=== PATIENT | male | born 1960 | race Caucasian/White ===

== ENCOUNTER 2018-07-03 08:41 | Inpatient (IN) | payer MEDICAID, OTHER ==
[~2018-07-03] VITALS: Ht 170.2 cm; Wt 69.6 kg
[2018-07-03 09:27] LABS: BASOPHILS % 1.2 % (0.0-2.0); EOSINOPHILS % 0.4 % (0.0-5.0); HEMATOCRIT. 27.7 % (42.0-52.0); HEMOGLOBIN. 9.1 g/dL (14.0-18.0); LYMPHOCYTES % 7.9 % (20.0-50.0); MEAN CORPUSCULAR HEMOGLOBIN 28.8 pg (28.0-32.0); MEAN CORPUSCULAR VOLUME 87.5 fL (80.0-94.0); MEAN PLATELET VOLUME 7.7 fl (7.4-10.4); MONOCYTES % 6.6 % (2.0-8.0); NEUTROPHILS % 83.9 % (40.0-76.0); PLATELET 215 x1000/uL (130-400); RED BLOOD CELL COUNT 3.17 mill/uL (4.7-6.1); RED CELL DISTRIBUTION WIDTH 17.7 % (11.6-14.6)
[2018-07-03] MEDS ORDERED: MORPHINE SULFATE 10 MG/ML CPJ IV ONE (09:30)
[2018-07-03] MEDS ORDERED: MORPHINE SULFATE 4 MG/ML CPJ (NOT FOR IM USE) IV ONE (09:30)
[2018-07-03] MEDS ORDERED: ONDANSETRON HCL 4MG/2ML INJ IV ONE ×2 (09:30→12:30)
[2018-07-03 09:33] LABS: CHLORIDE 100 mEq/L (98-107)
[2018-07-03] MEDS ORDERED: ASPIRIN 325MG EC TABLET PO ONE (09:45)
[2018-07-03] MEDS ORDERED: DEXTROSE 50% WATER 50ML SYRINGE IV ONE (10:15)
[2018-07-03] MEDS ORDERED: ONDANSETRON HCL 4MG/2ML INJ IV PRN ×3 (10:15→17:30)
[2018-07-03] MEDS ORDERED: INSULIN REGULAR (HUMULIN R) 300UNITS/3ML IV ONE (10:15)
[2018-07-03] MEDS ORDERED: ALBUTEROL (0.083%) 2.5MG/3ML NEB HHN ONE (10:15)
[2018-07-03] MEDS ORDERED: SODIUM BICARBONATE 8.4% 1 MEQ/ML 50ML SYR IV ONE (10:15)
[2018-07-03] MEDS ORDERED: ACETAMINOPHEN 325MG TABLET PO PRN ×3 (10:15→17:30)
[2018-07-03 12:21] LABS: HEPATITIS B SURFACE ANTIGEN NEGATIVE
[2018-07-03 12:51] LABS: HEPATITIS A AB IGM NEGATIVE (NEGATIVE)
[2018-07-03] MEDS ORDERED: SEVELAMER CARBONATE 800 MG TABLET PO SCH (13:00)
[2018-07-03] MEDS ORDERED: NITROGLYCERIN OINT 1GM/INCH UDPKT TD SCH (14:00)
[2018-07-03] MEDS ORDERED: IODIXANOL 320MG/ML 100 ML BOTTLE IV ONE (15:07)
[2018-07-03] MEDS ORDERED: LIDOCAINE HCL 1% 20ML VIAL (Pyxis) INJ ONE (15:07)
[2018-07-03] MEDS ORDERED: MIDAZOLAM HCL 2 MG/2 ML VIAL ONE (15:58)
[2018-07-03] MEDS ORDERED: FENTANYL CITRATE/PF 50MCG/ML 2ML VIAL ONE (15:58)
[2018-07-03] MEDS ORDERED: HEPARIN SODIUM 1,000 UNIT/1ML VIAL IV ONE (16:12)
[2018-07-03] MEDS ORDERED: IOHEXOL-300 100 ML BOTTLE ONE ×2 (16:32→16:50)
[2018-07-03] MEDS ORDERED: ATROPINE SULFATE 1MG/10ML SYR IV PRN ×2 (17:00→17:30)
[2018-07-03] MEDS ORDERED: METOPROLOL TARTRATE 25MG TABLET PO SCH (17:00)
[2018-07-03] MEDS ORDERED: CLOPIDOGREL 75MG TABLET ONE (17:12)
[2018-07-03] MEDS ORDERED: ASPIRIN 325MG TABLET ONE (17:33)
[2018-07-03] MEDS: METOPROLOL TARTRATE 25MG TABLET PO SCH (18:09)
[2018-07-03] MEDS: NITROGLYCERIN OINT 1GM/INCH UDPKT TD SCH (18:10)
[2018-07-03] MEDS: SEVELAMER CARBONATE 800 MG TABLET PO SCH (18:10)
[2018-07-03 20:00] VITALS: BP 130/74
[2018-07-03] MEDS ORDERED: EPOETIN ALFA 10000UNITS/ML VIAL SUBCUT SCH (21:00)
[2018-07-03 22:00] VITALS: BP 139/82
[2018-07-03] MEDS: EPOETIN ALFA 10000UNITS/ML VIAL SUBCUT SCH (22:38)
[2018-07-04] VITALS (12 sets, daily range): BP systolic 109–144; BP diastolic 52–79
[2018-07-04] MEDS: NITROGLYCERIN OINT 1GM/INCH UDPKT TD SCH (02:23)
[2018-07-04] MEDS: MORPHINE SULFATE 10 MG/ML CPJ IV PRN (02:25)
[2018-07-04] MEDS ORDERED: POLY15DR56 OP (04:12)
[2018-07-04] MEDS ORDERED: IBUP-2271 PO (04:12)
[2018-07-04] MEDS ORDERED: DORZ10DR12 OP (04:12)
[2018-07-04] MEDS ORDERED: BRIM5DRO6 OP (04:12)
[2018-07-04] MEDS ORDERED: LATA2.5D2 OP (04:12)
[2018-07-04 06:41] LABS: BASOPHILS % 0.7 % (0.0-2.0); EOSINOPHILS % 0.4 % (0.0-5.0); HEMATOCRIT. 25.2 % (42.0-52.0); HEMOGLOBIN. 8.4 g/dL (14.0-18.0); LYMPHOCYTES % 12.3 % (20.0-50.0); MEAN CORPUSCULAR HEMOGLOBIN 29.1 pg (28.0-32.0); MEAN CORPUSCULAR VOLUME 87.8 fL (80.0-94.0); MEAN PLATELET VOLUME 7.8 fl (7.4-10.4); NEUTROPHILS % 79.6 % (40.0-76.0); PLATELET 202 x1000/uL (130-400); RED BLOOD CELL COUNT 2.87 mill/uL (4.7-6.1); RED CELL DISTRIBUTION WIDTH 17.8 % (11.6-14.6)
[2018-07-04] MEDS: SEVELAMER CARBONATE 800 MG TABLET PO SCH ×3 (07:20→17:59)
[2018-07-04] MEDS ORDERED: DEXTROSE 50% WATER 50ML SYRINGE IV PRN (08:30)
[2018-07-04] MEDS: METOPROLOL TARTRATE 25MG TABLET PO SCH ×2 (09:00→20:56)
[2018-07-04] MEDS ORDERED: ASPIRIN 81MG EC TABLET PO SCH (09:00)
[2018-07-04] MEDS ORDERED: CLOPIDOGREL 75MG TABLET PO SCH (09:00)
[2018-07-04] MEDS: ALPRAZOLAM 0.5 MG TABLET PO PRN (09:19)
[2018-07-04] MEDS ORDERED: NITROGLYCERIN OINT 1GM/INCH UDPKT TD PRN (10:15)
[2018-07-04] MEDS: BLOOD SUGAR DIAGNOSTIC STRIP TEST SCH ×3 (11:48→20:44)
[2018-07-04] MEDS: ASPIRIN 81MG EC TABLET PO SCH (11:49)
[2018-07-04] MEDS: CLOPIDOGREL 75MG TABLET PO SCH (11:49)
[2018-07-04] MEDS: INSULIN LISPRO 100 UNITS/ML SUBCUT SCH ×3 (13:07→20:44)
[2018-07-04] MEDS: ACETAMINOPHEN 325MG TABLET PO PRN (23:00)
[2018-07-05] VITALS (16 sets, daily range): BP systolic 88–170; BP diastolic 31–153
[2018-07-05] MEDS: BLOOD SUGAR DIAGNOSTIC STRIP TEST SCH ×4 (06:36→21:09)
[2018-07-05 06:46] LABS: BASOPHILS % 0.6 % (0.0-2.0); EOSINOPHILS % 3.4 % (0.0-5.0); HEMATOCRIT. 24.4 % (42.0-52.0); HEMOGLOBIN. 8.1 g/dL (14.0-18.0); LYMPHOCYTES % 22.7 % (20.0-50.0); MEAN CORPUSCULAR HEMOGLOBIN 28.9 pg (28.0-32.0); MEAN CORPUSCULAR VOLUME 87.2 fL (80.0-94.0); MEAN PLATELET VOLUME 7.8 fl (7.4-10.4); MONOCYTES % 9.7 % (2.0-8.0); NEUTROPHILS % 63.6 % (40.0-76.0); PLATELET 213 x1000/uL (130-400); RED CELL DISTRIBUTION WIDTH 17.9 % (11.6-14.6)
[2018-07-05 07:05] LABS: PHOSPHORUS 4.7 mg/dL (2.5-4.9)
[2018-07-05] MEDS: SEVELAMER CARBONATE 800 MG TABLET PO SCH ×3 (07:41→18:18)
[2018-07-05] MEDS: INSULIN LISPRO 100 UNITS/ML SUBCUT SCH ×4 (07:42→21:08)
[2018-07-05] MEDS: MORPHINE SULFATE 10 MG/ML CPJ IV PRN ×2 (08:44→21:07)
[2018-07-05] MEDS: ASPIRIN 81MG EC TABLET PO SCH (08:45)
[2018-07-05] MEDS: METOPROLOL TARTRATE 25MG TABLET PO SCH (08:45)
[2018-07-05] MEDS: CLOPIDOGREL 75MG TABLET PO SCH (08:45)
[2018-07-05] MEDS ORDERED: LACTULOSE 20G/30ML UDC PO PRN (11:00)
[2018-07-05] MEDS ORDERED: BISACODYL 10MG SUPP PR PRN (11:00)
[2018-07-05] MEDS: DOCUSATE SODIUM 250MG CAPSULE PO SCH (12:28)
[2018-07-05 13:02] LABS: CLARITY URINE TURBID (CLEAR); COLOR URINE RED (YELLOW); KETONES URINE NEGATIVE (NEGATIVE); LEUKOCYTE ESTERASE URINE 3+ (NEGATIVE); NITRITE URINE NEGATIVE (NEGATIVE); OCCULT BLOOD URINE 3+ (NEGATIVE); PROTEIN URINE 3+ (NEGATIVE); SPECIFIC GRAVITY URINE 1.015 (1.005-1.030); UROBILINOGEN URINE 0.2 E.U./dL (0.2-1.0)
[2018-07-05 13:24] LABS: *AMPHETAMINES SCREEN URINE NEGATIVE (NEGATIVE); *BARBITURATES SCREEN URINE NEGATIVE (NEGATIVE); *BENZODIAZEPINES SCREEN URINE PRESUMTIVE POSITIVE (NEGATIVE); *COCAINE SCREEN URINE NEGATIVE (NEGATIVE); CANNABINOID URINE SCREEN NEGATIVE (NEGATIVE); METHADONE URINE SCREEN NEGATIVE (NEGATIVE); OPIATES URINE SCREEN PRESUMTIVE POSITIVE (NEGATIVE); PHENCYCLIDINE URINE SCREEN NEGATIVE (NEGATIVE)
[2018-07-05] MEDS: ALPRAZOLAM 0.5 MG TABLET PO PRN (15:38)
[2018-07-05] MEDS: LACTULOSE 20G/30ML UDC PO PRN (21:06)
[2018-07-05] MEDS: CARVEDILOL 3.125 MG TABLET PO SCH (21:07)
[2018-07-05] MEDS ORDERED: ZOLPIDEM TARTRATE 5MG TABLET PO PRN (21:45)
[2018-07-05] MEDS: EPOETIN ALFA 10000UNITS/ML VIAL SUBCUT SCH (22:14)
[2018-07-06] VITALS (12 sets, daily range): BP systolic 120–163; BP diastolic 29–80
[2018-07-06 07:15] LABS: BASOPHILS % 0.7 % (0.0-2.0); EOSINOPHILS % 4.3 % (0.0-5.0); HEMATOCRIT. 28.7 % (42.0-52.0); HEMOGLOBIN. 9.6 g/dL (14.0-18.0); LYMPHOCYTES % 19.7 % (20.0-50.0); MEAN PLATELET VOLUME 7.6 fl (7.4-10.4); MONOCYTES % 10.4 % (2.0-8.0); NEUTROPHILS % 64.9 % (40.0-76.0); PLATELET 211 x1000/uL (130-400)
[2018-07-06 07:43] LABS: PHOSPHORUS 4.4 mg/dL (2.5-4.9)
[2018-07-06] MEDS: INSULIN LISPRO 100 UNITS/ML SUBCUT SCH ×4 (08:06→20:45)
[2018-07-06] MEDS: ASPIRIN 81MG EC TABLET PO SCH (08:07)
[2018-07-06] MEDS: DOCUSATE SODIUM 250MG CAPSULE PO SCH (08:07)
[2018-07-06] MEDS: SEVELAMER CARBONATE 800 MG TABLET PO SCH ×3 (08:07→17:16)
[2018-07-06] MEDS: CARVEDILOL 3.125 MG TABLET PO SCH ×2 (08:07→20:26)
[2018-07-06] MEDS: CLOPIDOGREL 75MG TABLET PO SCH (08:07)
[2018-07-06] MEDS ORDERED: MORPHINE SULFATE 4 MG/ML CPJ (NOT FOR IM USE) IV PRN (11:45)
[2018-07-06] MEDS: BLOOD SUGAR DIAGNOSTIC STRIP TEST SCH ×3 (11:52→21:00)
[2018-07-06] MEDS: ACETAMINOPHEN 325MG TABLET PO PRN (17:16)
[2018-07-06] MEDS ORDERED: BISACODYL 10MG SUPP PR PRN (19:30)
[2018-07-06] MEDS ORDERED: BISACODYL 5MG TABLET PO PRN (19:30)
[2018-07-06] MEDS ORDERED: LEVOFLOXACIN 250MG TABLET PO SCH (20:00)
[2018-07-06] MEDS: LACTULOSE 20G/30ML UDC PO PRN (20:26)
[2018-07-07] VITALS (12 sets, daily range): BP systolic 112–145; BP diastolic 43–78
[2018-07-07 07:10] LABS: BASOPHILS % 0.8 % (0.0-2.0); EOSINOPHILS % 4.8 % (0.0-5.0); HEMATOCRIT. 28.3 % (42.0-52.0); HEMOGLOBIN. 9.4 g/dL (14.0-18.0); LYMPHOCYTES % 22.7 % (20.0-50.0); MEAN CORPUSCULAR HEMOGLOBIN 29.2 pg (28.0-32.0); MEAN CORPUSCULAR VOLUME 87.4 fL (80.0-94.0); MEAN PLATELET VOLUME 7.3 fl (7.4-10.4); NEUTROPHILS % 60.7 % (40.0-76.0); PLATELET 218 x1000/uL (130-400); RED BLOOD CELL COUNT 3.23 mill/uL (4.7-6.1); RED CELL DISTRIBUTION WIDTH 17.8 % (11.6-14.6)
[2018-07-07] MEDS: BLOOD SUGAR DIAGNOSTIC STRIP TEST SCH ×3 (07:49→16:47)
[2018-07-07] MEDS: ASPIRIN 81MG EC TABLET PO SCH (08:05)
[2018-07-07] MEDS: DOCUSATE SODIUM 250MG CAPSULE PO SCH (08:05)
[2018-07-07] MEDS: CLOPIDOGREL 75MG TABLET PO SCH (08:05)
[2018-07-07] MEDS: CARVEDILOL 3.125 MG TABLET PO SCH (08:05)
[2018-07-07] MEDS: INSULIN LISPRO 100 UNITS/ML SUBCUT SCH ×3 (08:06→16:58)
[2018-07-07] MEDS: MORPHINE SULFATE 10 MG/ML CPJ IV PRN (08:07)
[2018-07-07] MEDS: SEVELAMER CARBONATE 800 MG TABLET PO SCH ×3 (08:11→16:47)
[2018-07-07] MEDS ORDERED: CEFTRIAXONE 1 G PREMIX 50 ML IV SCH (13:00)
[2018-07-07] MEDS ORDERED: COR3 PO (13:55)
[2018-07-07] MEDS ORDERED: CLOP75TA16 PO (13:55)
[2018-07-07] MEDS ORDERED: SEVE800T8 PO (13:55)
[2018-07-07] MEDS ORDERED: ASPI-1158 PO (13:55)
== END 2018-07-07 18:16 | disposition home or self-care (01) | DRG 175 ==
LOC: EDBD 08:55 → ER 08:55 → 3WST 11:58 → EDBEDREQTM 12:00 → EDBEDREQ 12:00 → ER 15:51 → 3WST 07-05 10:58
PROVIDERS: ADMIT Internal Medicine; ATTEND Family Medicine
PROC: 02713ZZ Dilation of Coronary Artery, Two Arteries, Percutaneous Approach (ICD-10-PCS; 2017-07-04)
PROC: 027034Z Dilation of Coronary Artery, One Artery with Drug-eluting Intraluminal Device, Percutaneous Approach (ICD-10-PCS; principal; 2018-07-03)
PROC: 4A023N7 Measurement of Cardiac Sampling and Pressure, Left Heart, Percutaneous Approach (ICD-10-PCS; 2018-07-03)
PROC: B2111ZZ Fluoroscopy of Multiple Coronary Arteries using Low Osmolar Contrast (ICD-10-PCS; 2018-07-03)
PROC: 5A1D70Z Performance of Urinary Filtration, Intermittent, Less than 6 Hours Per Day (ICD-10-PCS; 2018-07-03)
PROC: 5A1D70Z Performance of Urinary Filtration, Intermittent, Less than 6 Hours Per Day (ICD-10-PCS; 2018-07-04)
PROC: 30233N1 Transfusion of Nonautologous Red Blood Cells into Peripheral Vein, Percutaneous Approach (ICD-10-PCS; 2018-07-05)
PROC: 5A1D70Z Performance of Urinary Filtration, Intermittent, Less than 6 Hours Per Day (ICD-10-PCS; 2018-07-07)
DX: T82.855A Stenosis of coronary artery stent, initial encounter (principal); I21.4 Non-ST elevation (NSTEMI) myocardial infarction; I13.2 Hypertensive heart and chronic kidney disease with heart failure and with stage 5 chronic kidney disease, or end stage renal disease; E11.22 Type 2 diabetes mellitus with diabetic chronic kidney disease; E11.51 Type 2 diabetes mellitus with diabetic peripheral angiopathy without gangrene; E87.1 Hypo-osmolality and hyponatremia; N18.6 End stage renal disease; I50.40 Unspecified combined systolic (congestive) and diastolic (congestive) heart failure; I25.110 Atherosclerotic heart disease of native coronary artery with unstable angina pectoris; D63.1 Anemia in chronic kidney disease; E78.5 Hyperlipidemia, unspecified; E87.5 Hyperkalemia; E78.00 Pure hypercholesterolemia, unspecified; K59.00 Constipation, unspecified; B96.20 Unspecified Escherichia coli [E. coli] as the cause of diseases classified elsewhere; I25.5 Ischemic cardiomyopathy; J98.11 Atelectasis; N39.0 Urinary tract infection, site not specified; Y83.1 Surgical operation with implant of artificial internal device as the cause of abnormal reaction of the patient, or of later complication, without mention of misadventure at the time of the procedure; Z82.49 Family history of ischemic heart disease and other diseases of the circulatory system; Z99.2 Dependence on renal dialysis; Z83.3 Family history of diabetes mellitus; Z90.49 Acquired absence of other specified parts of digestive tract; Z89.432 Acquired absence of left foot; Z89.431 Acquired absence of right foot
CPT/HCPCS: 36415; 71045; 74018; 76700; 80048; 80061; 80076; 80305; 82140; 82962; 83036; 83735; 83880; 84100; 84132; 84443; 84484; 85347; 86705; 86709; 86803; 86850; 86900; 86920; 87077; 87186; 87340; 92920; 92928; 92978; 93005; 93306; 93458; 93970; 96374; 96375; 97163; 99285; C1725; C1753; C1760; C1769; C1874; C1887; C1893; J0696; J0885; J1644; J1815; J2250; J2270; J2405; J3010; J3490; P9016; Q9967

== ENCOUNTER 2018-08-22 10:12 | Inpatient (IN) | payer MEDICAID, OTHER ==
[~2018-08-22] VITALS: Ht 170.2 cm; Wt 58.5 kg
[~2018-08-22 10:12] MED LIST: ASPI-1158 PO; BRIM5DRO6 OP; CLOP75TA16 PO; COR3 PO; DORZ10DR12 OP; IBUP-2271 PO; LATA2.5D2 OP; POLY15DR56 OP; SEVE800T8 PO; SODIUM POLYSTYRENE SULFONATE 15 G/60 ML BOT PO NR
[2018-08-22 19:04] LABS: BASOPHILS % 0.8 % (0.0-2.0); EOSINOPHILS % 3.6 % (0.0-5.0); HEMATOCRIT. 42.9 % (42.0-52.0); LYMPHOCYTES % 32.9 % (20.0-50.0); MEAN CORPUSCULAR HEMOGLOBIN 29.6 pg (28.0-32.0); MEAN PLATELET VOLUME 8.1 fl (7.4-10.4); MONOCYTES % 10.7 % (2.0-8.0); PLATELET 197 x1000/uL (130-400); RED BLOOD CELL COUNT 4.72 mill/uL (4.7-6.1); RED CELL DISTRIBUTION WIDTH 16.3 % (11.6-14.6)
[2018-08-22 19:10] LABS: CHLORIDE 99 mEq/L (98-107)
[2018-08-22 20:54] LABS: CLARITY URINE TURBID (CLEAR); COLOR URINE YELLOW (YELLOW); KETONES URINE NEGATIVE (NEGATIVE); LEUKOCYTE ESTERASE URINE 3+ (NEGATIVE); NITRITE URINE NEGATIVE (NEGATIVE); OCCULT BLOOD URINE 1+ (NEGATIVE); PH URINE 5.5 (4.5-8.0); PROTEIN URINE 3+ (NEGATIVE); SPECIFIC GRAVITY URINE 1.013 (1.005-1.030); UROBILINOGEN URINE 0.2 E.U./dL (0.2-1.0)
[2018-08-22] MEDS ORDERED: CEFTRIAXONE 1 G PREMIX 50 ML IV ONE (21:30)
[2018-08-22] MEDS ORDERED: HYDROMORPHONE HCL/PF 2MG/ML CPJ IV NR (23:30)
[2018-08-22] MEDS ORDERED: CEFTRIAXONE 1 G PREMIX 50 ML IV SCH (23:45)
[2018-08-22] MEDS ORDERED: GUAIFENESIN 200MG/10ML SUGAR FREE UDC PO PRN (23:45)
[2018-08-23 00:27] VITALS: BP 147/75
[2018-08-23 04:00] VITALS: BP 121/59
[2018-08-23] MEDS: SODIUM CHLORIDE 0.9% INJ 3ML FLUSH IVF SCH ×3 (05:00→20:41)
[2018-08-23 08:00] VITALS: BP 152/75
[2018-08-23] MEDS ORDERED: PNEUMOCOCCAL 23-VAL P-SAC VAC 0.5 ML IM ONE (08:00)
[2018-08-23] MEDS ORDERED: DEXTROSE 50% WATER 50ML SYRINGE IV PRN (08:15)
[2018-08-23] MEDS ORDERED: SODIUM BICARBONATE 8.4% 1 MEQ/ML 50ML SYR IV SCH (08:30)
[2018-08-23] MEDS ORDERED: DEXTROSE 50% WATER 50ML SYRINGE IV SCH (08:30)
[2018-08-23] MEDS ORDERED: FUROSEMIDE 100MG/10ML VIAL IVP SCH (08:40)
[2018-08-23 09:46] LABS: BASOPHILS % 1.2 % (0.0-2.0); EOSINOPHILS % 4.1 % (0.0-5.0); HEMATOCRIT. 41.1 % (42.0-52.0); HEMOGLOBIN. 13.5 g/dL (14.0-18.0); LYMPHOCYTES % 25.5 % (20.0-50.0); MEAN CORPUSCULAR HEMOGLOBIN 29.9 pg (28.0-32.0); MEAN CORPUSCULAR VOLUME 91.1 fL (80.0-94.0); MEAN PLATELET VOLUME 8.1 fl (7.4-10.4); MONOCYTES % 10.7 % (2.0-8.0); NEUTROPHILS % 58.5 % (40.0-76.0); PLATELET 173 x1000/uL (130-400); RED BLOOD CELL COUNT 4.52 mill/uL (4.7-6.1); RED CELL DISTRIBUTION WIDTH 15.8 % (11.6-14.6)
[2018-08-23] MEDS: ENOXAPARIN 30MG/0.3ML SYR SUBCUT SCH (09:54)
[2018-08-23] MEDS: FAMOTIDINE 20MG/2ML VIAL IV SCH (09:55)
[2018-08-23] MEDS: LOSARTAN POTASSIUM 25 MG TABLET PO SCH (09:55)
[2018-08-23] MEDS: CLOPIDOGREL 75MG TABLET PO SCH (09:55)
[2018-08-23] MEDS: ASPIRIN 81MG EC TABLET PO SCH (09:55)
[2018-08-23] MEDS: METOPROLOL TARTRATE 25MG TABLET PO SCH ×2 (09:56→20:43)
[2018-08-23] MEDS: CARVEDILOL 3.125 MG TABLET PO SCH ×2 (09:57→20:42)
[2018-08-23] MEDS ORDERED: INFLUENZA VIRUS VACCINE(AFLURIA) 0.5ML SYR IM ONE (10:00)
[2018-08-23] MEDS ORDERED: SODIUM POLYSTYRENE SULFONATE 15 G/60 ML BOT PO SCH (10:00)
[2018-08-23 12:00] VITALS: BP 149/78
[2018-08-23] MEDS: BLOOD SUGAR DIAGNOSTIC STRIP TEST SCH ×2 (12:56→21:00)
[2018-08-23] MEDS: INSULIN LISPRO 100 UNITS/ML SUBCUT SCH ×2 (13:09→21:00)
[2018-08-23] MEDS: ONDANSETRON HCL 4MG/2ML INJ IV PRN (14:47)
[2018-08-23 16:00] VITALS: BP 121/61
[2018-08-23 20:00] VITALS: BP 166/71
[2018-08-23] MEDS: CEFTRIAXONE 1,000 MG in DEXTROSE 5% WATER 50 ML IV SCH (20:40)
[2018-08-23] MEDS: ATORVASTATIN CALCIUM 10MG TABLET PO SCH (20:41)
[2018-08-23] MEDS ORDERED: CEFTRIAXONE 1 G PREMIX 50 ML IV SCH (22:00)
[2018-08-24] VITALS: BP 125/71
[2018-08-24 04:00] VITALS: BP 144/67
[2018-08-24 05:46] LABS: BASOPHILS % 0.8 % (0.0-2.0); EOSINOPHILS % 2.5 % (0.0-5.0); HEMATOCRIT. 39.3 % (42.0-52.0); HEMOGLOBIN. 12.7 g/dL (14.0-18.0); LYMPHOCYTES % 25.5 % (20.0-50.0); MEAN CORPUSCULAR HEMOGLOBIN 29.1 pg (28.0-32.0); MEAN CORPUSCULAR VOLUME 89.6 fL (80.0-94.0); MEAN PLATELET VOLUME 8.1 fl (7.4-10.4); MONOCYTES % 11.3 % (2.0-8.0); NEUTROPHILS % 59.9 % (40.0-76.0); PLATELET 175 x1000/uL (130-400); RED BLOOD CELL COUNT 4.38 mill/uL (4.7-6.1); RED CELL DISTRIBUTION WIDTH 15.8 % (11.6-14.6)
[2018-08-24 06:07] LABS: PHOSPHORUS 6.5 mg/dL (2.5-4.9)
[2018-08-24] MEDS: SODIUM CHLORIDE 0.9% INJ 3ML FLUSH IVF SCH ×3 (06:11→22:51)
[2018-08-24] MEDS: INSULIN LISPRO 100 UNITS/ML SUBCUT SCH ×4 (07:38→21:13)
[2018-08-24] MEDS: BLOOD SUGAR DIAGNOSTIC STRIP TEST SCH ×4 (07:38→21:13)
[2018-08-24 08:00] VITALS: BP 156/69
[2018-08-24] MEDS: ENOXAPARIN 30MG/0.3ML SYR SUBCUT SCH (08:26)
[2018-08-24] MEDS: FAMOTIDINE 20MG/2ML VIAL IV SCH (08:27)
[2018-08-24] MEDS: ASPIRIN 81MG EC TABLET PO SCH (08:28)
[2018-08-24] MEDS: METOPROLOL TARTRATE 25MG TABLET PO SCH ×2 (08:28→21:12)
[2018-08-24] MEDS: CARVEDILOL 3.125 MG TABLET PO SCH (08:28)
[2018-08-24] MEDS: LOSARTAN POTASSIUM 25 MG TABLET PO SCH (08:28)
[2018-08-24] MEDS: CLOPIDOGREL 75MG TABLET PO SCH (08:28)
[2018-08-24] MEDS: CLONIDINE 0.1MG TABLET PO PRN ×2 (11:34→17:57)
[2018-08-24] MEDS: HYDROMORPHONE HCL/PF 2MG/ML CPJ IV PRN (11:43)
[2018-08-24 12:00] VITALS: BP 162/72
[2018-08-24] MEDS: ONDANSETRON HCL 4MG/2ML INJ IV PRN ×2 (13:29→17:57)
[2018-08-24] MEDS: CALCIUM ACETATE 667MG CAPSULE PO SCH ×2 (14:02→17:50)
[2018-08-24 16:00] VITALS: BP 163/73
[2018-08-24 20:00] VITALS: BP 145/64
[2018-08-24] MEDS: ATORVASTATIN CALCIUM 10MG TABLET PO SCH (21:12)
[2018-08-24] MEDS: CEFTRIAXONE 1,000 MG in DEXTROSE 5% WATER 50 ML IV SCH (22:50)
[2018-08-25] VITALS: BP 123/50
[2018-08-25 04:00] VITALS: BP 161/77
[2018-08-25] MEDS: HYDROMORPHONE HCL/PF 2MG/ML CPJ IV PRN (05:35)
[2018-08-25] MEDS: SODIUM CHLORIDE 0.9% INJ 3ML FLUSH IVF SCH ×3 (06:19→21:27)
[2018-08-25 07:24] LABS: BASOPHILS % 0.9 % (0.0-2.0); EOSINOPHILS % 2.8 % (0.0-5.0); HEMATOCRIT. 37.8 % (42.0-52.0); HEMOGLOBIN. 12.2 g/dL (14.0-18.0); LYMPHOCYTES % 23.3 % (20.0-50.0); MEAN CORPUSCULAR HEMOGLOBIN 29.1 pg (28.0-32.0); MEAN CORPUSCULAR VOLUME 90.1 fL (80.0-94.0); MEAN PLATELET VOLUME 8.3 fl (7.4-10.4); MONOCYTES % 13.3 % (2.0-8.0); NEUTROPHILS % 59.7 % (40.0-76.0); PLATELET 163 x1000/uL (130-400); RED CELL DISTRIBUTION WIDTH 15.6 % (11.6-14.6)
[2018-08-25] MEDS: BLOOD SUGAR DIAGNOSTIC STRIP TEST SCH ×4 (07:40→21:13)
[2018-08-25] MEDS: ONDANSETRON HCL 4MG/2ML INJ IV PRN ×2 (07:47→14:43)
[2018-08-25 08:00] VITALS: BP 134/71
[2018-08-25 08:16] LABS: PHOSPHORUS 7.9 mg/dL (2.5-4.9)
[2018-08-25] MEDS: FAMOTIDINE 20MG/2ML VIAL IV SCH (09:12)
[2018-08-25] MEDS: INSULIN LISPRO 100 UNITS/ML SUBCUT SCH ×4 (09:12→21:26)
[2018-08-25] MEDS: ENOXAPARIN 30MG/0.3ML SYR SUBCUT SCH (09:13)
[2018-08-25] MEDS: CALCIUM ACETATE 667MG CAPSULE PO SCH ×3 (09:13→18:42)
[2018-08-25] MEDS: METOPROLOL TARTRATE 25MG TABLET PO SCH ×2 (09:14→21:13)
[2018-08-25] MEDS: ASPIRIN 81MG EC TABLET PO SCH (09:14)
[2018-08-25] MEDS: CLOPIDOGREL 75MG TABLET PO SCH (09:14)
[2018-08-25] MEDS: LOSARTAN POTASSIUM 25 MG TABLET PO SCH (09:26)
[2018-08-25 12:00] VITALS: BP 147/68
[2018-08-25] MEDS: ACETAMINOPHEN 325MG TABLET PO PRN (14:33)
[2018-08-25 16:00] VITALS: BP 145/66
[2018-08-25 20:28] VITALS: BP 131/62
[2018-08-25] MEDS: ATORVASTATIN CALCIUM 10MG TABLET PO SCH (21:13)
[2018-08-25] MEDS: CEFTRIAXONE 1,000 MG in DEXTROSE 5% WATER 50 ML IV SCH (21:26)
[2018-08-26] VITALS: BP 138/61
[2018-08-26] MEDS: HYDROMORPHONE HCL/PF 2MG/ML CPJ IV PRN (01:07)
[2018-08-26] MEDS: ONDANSETRON HCL 4MG/2ML INJ IV PRN ×2 (01:12→09:49)
[2018-08-26] MEDS: LORAZEPAM 0.5MG TABLET PO PRN ×2 (01:41→23:17)
[2018-08-26 04:00] VITALS: BP_SYST 120; BP_SYST 99; BP_DIAS 58
[2018-08-26] MEDS: INSULIN LISPRO 100 UNITS/ML SUBCUT SCH ×4 (05:34→21:00)
[2018-08-26] MEDS: BLOOD SUGAR DIAGNOSTIC STRIP TEST SCH ×4 (05:34→21:00)
[2018-08-26 05:50] LABS: BASOPHILS % 0.4 % (0.0-2.0); EOSINOPHILS % 1.2 % (0.0-5.0); HEMATOCRIT. 43.8 % (42.0-52.0); HEMOGLOBIN. 14.1 g/dL (14.0-18.0); LYMPHOCYTES % 21.7 % (20.0-50.0); MEAN CORPUSCULAR HEMOGLOBIN 29.4 pg (28.0-32.0); MEAN CORPUSCULAR VOLUME 91.3 fL (80.0-94.0); MEAN PLATELET VOLUME 8.2 fl (7.4-10.4); MONOCYTES % 7.7 % (2.0-8.0); PLATELET 187 x1000/uL (130-400); RED CELL DISTRIBUTION WIDTH 16.1 % (11.6-14.6)
[2018-08-26 06:53] LABS: PHOSPHORUS 8.1 mg/dL (2.5-4.9)
[2018-08-26 08:00] VITALS: BP_SYST 156; BP_SYST 175; BP_DIAS 73; BP_DIAS 78
[2018-08-26] MEDS: CLOPIDOGREL 75MG TABLET PO SCH (09:05)
[2018-08-26] MEDS: CALCIUM ACETATE 667MG CAPSULE PO SCH ×3 (09:05→19:23)
[2018-08-26] MEDS: ASPIRIN 81MG EC TABLET PO SCH (09:06)
[2018-08-26] MEDS: ENOXAPARIN 30MG/0.3ML SYR SUBCUT SCH (09:06)
[2018-08-26] MEDS: LOSARTAN POTASSIUM 25 MG TABLET PO SCH (09:06)
[2018-08-26] MEDS: METOPROLOL TARTRATE 25MG TABLET PO SCH ×2 (09:06→22:06)
[2018-08-26] MEDS: FAMOTIDINE 20MG/2ML VIAL IV SCH (09:06)
[2018-08-26] MEDS: PANTOPRAZOLE SODIUM 40 MG/VIAL IV SCH (11:51)
[2018-08-26] MEDS: ACETAMINOPHEN 325MG TABLET PO PRN (11:51)
[2018-08-26 12:00] VITALS: BP 175/78
[2018-08-26] MEDS: CLONIDINE 0.1MG TABLET PO PRN (14:08)
[2018-08-26] MEDS: SODIUM CHLORIDE 0.9% INJ 3ML FLUSH IVF SCH (14:15)
[2018-08-26 16:00] VITALS: BP 143/61
[2018-08-26 16:25] LABS: HEPATITIS B SURFACE ANTIGEN NEGATIVE
[2018-08-26 16:55] LABS: HEPATITIS A AB IGM NEGATIVE (NEGATIVE)
[2018-08-26] MEDS: METOCLOPRAMIDE HCL 10MG/2ML VIAL IV SCH ×2 (19:23→23:17)
[2018-08-26 20:00] VITALS: BP 139/59
[2018-08-26] MEDS: ATORVASTATIN CALCIUM 10MG TABLET PO SCH (22:06)
[2018-08-26] MEDS: CEFTRIAXONE 1,000 MG in DEXTROSE 5% WATER 50 ML IV SCH (22:09)
[2018-08-26] MEDS: MORPHINE SULFATE 4 MG/ML CPJ (NOT FOR IM USE) IV PRN (23:41)
[2018-08-27] VITALS: BP 131/62
[2018-08-27 04:00] VITALS: BP 162/71
[2018-08-27] MEDS: METOCLOPRAMIDE HCL 10MG/2ML VIAL IV SCH ×3 (05:09→18:15)
[2018-08-27] MEDS: INSULIN LISPRO 100 UNITS/ML SUBCUT SCH ×4 (05:29→21:51)
[2018-08-27] MEDS: BLOOD SUGAR DIAGNOSTIC STRIP TEST SCH ×4 (05:29→21:56)
[2018-08-27 07:34] LABS: BASOPHILS % 0.7 % (0.0-2.0); EOSINOPHILS % 3.3 % (0.0-5.0); HEMATOCRIT. 38.3 % (42.0-52.0); HEMOGLOBIN. 12.4 g/dL (14.0-18.0); LYMPHOCYTES % 28.7 % (20.0-50.0); MEAN CORPUSCULAR HEMOGLOBIN 29.3 pg (28.0-32.0); MEAN CORPUSCULAR VOLUME 90.4 fL (80.0-94.0); MEAN PLATELET VOLUME 8.1 fl (7.4-10.4); MONOCYTES % 10.9 % (2.0-8.0); NEUTROPHILS % 56.4 % (40.0-76.0); PLATELET 155 x1000/uL (130-400); RED BLOOD CELL COUNT 4.24 mill/uL (4.7-6.1); RED CELL DISTRIBUTION WIDTH 15.3 % (11.6-14.6)
[2018-08-27 08:00] VITALS: BP 145/65
[2018-08-27] MEDS: CALCIUM ACETATE 667MG CAPSULE PO SCH ×3 (08:10→18:15)
[2018-08-27 08:19] LABS: PHOSPHORUS 5.1 mg/dL (2.5-4.9)
[2018-08-27] MEDS: ENOXAPARIN 30MG/0.3ML SYR SUBCUT SCH (09:27)
[2018-08-27] MEDS: PANTOPRAZOLE SODIUM 40 MG/VIAL IV SCH (09:27)
[2018-08-27 12:00] VITALS: BP 172/72
[2018-08-27] MEDS: LOSARTAN POTASSIUM 25 MG TABLET PO SCH (12:32)
[2018-08-27] MEDS: ASPIRIN 81MG EC TABLET PO SCH (12:32)
[2018-08-27] MEDS: METOPROLOL TARTRATE 25MG TABLET PO SCH ×2 (12:32→21:37)
[2018-08-27] MEDS: CLOPIDOGREL 75MG TABLET PO SCH (12:32)
[2018-08-27] MEDS: SODIUM CHLORIDE 0.9% INJ 3ML FLUSH IVF SCH ×3 (12:41→21:57)
[2018-08-27 16:10] VITALS: BP 152/66
[2018-08-27 20:00] VITALS: BP 112/73
[2018-08-27] MEDS: ATORVASTATIN CALCIUM 10MG TABLET PO SCH (21:37)
[2018-08-27] MEDS: CEFTRIAXONE 1,000 MG in DEXTROSE 5% WATER 50 ML IV SCH (21:57)
[2018-08-28] VITALS: BP 133/79
[2018-08-28] MEDS: METOCLOPRAMIDE HCL 10MG/2ML VIAL IV SCH ×4 (00:36→18:18)
[2018-08-28 04:00] VITALS: BP 137/57
[2018-08-28] MEDS: SODIUM CHLORIDE 0.9% INJ 3ML FLUSH IVF SCH ×3 (06:14→22:00)
[2018-08-28 07:49] LABS: PHOSPHORUS 5.8 mg/dL (2.5-4.9)
[2018-08-28 08:00] VITALS: BP 163/79
[2018-08-28] MEDS: BLOOD SUGAR DIAGNOSTIC STRIP TEST SCH ×4 (08:00→21:02)
[2018-08-28] MEDS: INSULIN LISPRO 100 UNITS/ML SUBCUT SCH ×4 (08:10→21:00)
[2018-08-28] MEDS: FAMOTIDINE 20MG TABLET PO SCH (08:40)
[2018-08-28] MEDS: CALCIUM ACETATE 667MG CAPSULE PO SCH ×3 (08:40→18:17)
[2018-08-28] MEDS: ASPIRIN 81MG EC TABLET PO SCH (08:40)
[2018-08-28] MEDS: ENOXAPARIN 30MG/0.3ML SYR SUBCUT SCH (08:41)
[2018-08-28] MEDS: CLOPIDOGREL 75MG TABLET PO SCH (08:42)
[2018-08-28] MEDS: LOSARTAN POTASSIUM 25 MG TABLET PO SCH (09:05)
[2018-08-28] MEDS: METOPROLOL TARTRATE 25MG TABLET PO SCH ×2 (09:07→21:12)
[2018-08-28 12:00] VITALS: BP 179/79
[2018-08-28] MEDS ORDERED: LORAZEPAM 0.5MG TABLET PO NR (12:15)
[2018-08-28] MEDS ORDERED: BISACODYL 10MG SUPP PR NR (12:15)
[2018-08-28] MEDS ORDERED: LORAZEPAM 0.5MG TABLET PO PRN (12:45)
[2018-08-28] MEDS ORDERED: BISACODYL 10MG SUPP PR PRN (12:45)
[2018-08-28] MEDS: LACTULOSE 20G/30ML UDC PO PRN ×2 (13:04→21:13)
[2018-08-28 13:24] LABS: BASOPHILS % 0.8 % (0.0-2.0); EOSINOPHILS % 2.1 % (0.0-5.0); HEMOGLOBIN. 12.7 g/dL (14.0-18.0); LYMPHOCYTES % 27.6 % (20.0-50.0); MEAN CORPUSCULAR HEMOGLOBIN 29.1 pg (28.0-32.0); MEAN CORPUSCULAR VOLUME 89.8 fL (80.0-94.0); MEAN PLATELET VOLUME 8.1 fl (7.4-10.4); MONOCYTES % 7.3 % (2.0-8.0); NEUTROPHILS % 62.2 % (40.0-76.0); PLATELET 156 x1000/uL (130-400); RED BLOOD CELL COUNT 4.35 mill/uL (4.7-6.1); RED CELL DISTRIBUTION WIDTH 15.6 % (11.6-14.6)
[2018-08-28 16:00] VITALS: BP 149/68
[2018-08-28] MEDS: CLONIDINE 0.1MG TABLET PO PRN (18:17)
[2018-08-28 20:00] VITALS: BP 125/67
[2018-08-28] MEDS: ATORVASTATIN CALCIUM 10MG TABLET PO SCH (21:11)
[2018-08-28] MEDS: CEFTRIAXONE 1,000 MG in DEXTROSE 5% WATER 50 ML IV SCH (22:00)
[2018-08-29] VITALS: BP 158/61
[2018-08-29] MEDS: METOCLOPRAMIDE HCL 10MG/2ML VIAL IV SCH ×4 (00:21→18:07)
[2018-08-29 04:00] VITALS: BP 158/79
[2018-08-29] MEDS: SODIUM CHLORIDE 0.9% INJ 3ML FLUSH IVF SCH ×3 (06:35→22:36)
[2018-08-29 06:50] LABS: BASOPHILS % 0.8 % (0.0-2.0); EOSINOPHILS % 3.9 % (0.0-5.0); HEMATOCRIT. 37.2 % (42.0-52.0); HEMOGLOBIN. 12.3 g/dL (14.0-18.0); LYMPHOCYTES % 27.8 % (20.0-50.0); MEAN CORPUSCULAR HEMOGLOBIN 29.6 pg (28.0-32.0); MEAN CORPUSCULAR VOLUME 89.5 fL (80.0-94.0); MEAN PLATELET VOLUME 7.9 fl (7.4-10.4); MONOCYTES % 12.4 % (2.0-8.0); NEUTROPHILS % 55.1 % (40.0-76.0); PLATELET 141 x1000/uL (130-400); RED BLOOD CELL COUNT 4.16 mill/uL (4.7-6.1); RED CELL DISTRIBUTION WIDTH 15.3 % (11.6-14.6)
[2018-08-29] MEDS: BLOOD SUGAR DIAGNOSTIC STRIP TEST SCH ×4 (07:00→21:00)
[2018-08-29 07:39] LABS: PHOSPHORUS 4.6 mg/dL (2.5-4.9)
[2018-08-29 08:00] VITALS: BP 137/72
[2018-08-29] MEDS: CALCIUM ACETATE 667MG CAPSULE PO SCH ×3 (09:08→18:07)
[2018-08-29] MEDS: ASPIRIN 81MG EC TABLET PO SCH (09:08)
[2018-08-29] MEDS: METOPROLOL TARTRATE 25MG TABLET PO SCH ×2 (09:08→21:24)
[2018-08-29] MEDS: LOSARTAN POTASSIUM 25 MG TABLET PO SCH (09:08)
[2018-08-29] MEDS: FAMOTIDINE 20MG TABLET PO SCH (09:08)
[2018-08-29] MEDS: CLOPIDOGREL 75MG TABLET PO SCH (09:08)
[2018-08-29] MEDS: ENOXAPARIN 30MG/0.3ML SYR SUBCUT SCH (09:09)
[2018-08-29] MEDS: INSULIN LISPRO 100 UNITS/ML SUBCUT SCH ×4 (09:10→22:34)
[2018-08-29 12:00] VITALS: BP 142/65
[2018-08-29 16:00] VITALS: BP 151/77
[2018-08-29] MEDS: LACTULOSE 20G/30ML UDC PO PRN (16:50)
[2018-08-29 20:00] VITALS: BP 170/79
[2018-08-29] MEDS: ATORVASTATIN CALCIUM 10MG TABLET PO SCH (21:22)
[2018-08-29] MEDS: OMEPRAZOLE 20MG CAPSULE EXTENDED RELEASE PO SCH (21:24)
[2018-08-29] MEDS: CLONIDINE 0.1MG TABLET PO PRN (21:25)
[2018-08-29] MEDS: CEFTRIAXONE 1,000 MG in DEXTROSE 5% WATER 50 ML IV SCH (22:35)
[2018-08-30] VITALS: BP 109/70
[2018-08-30] MEDS: METOCLOPRAMIDE HCL 10MG/2ML VIAL IV SCH ×3 (01:33→12:28)
[2018-08-30 04:00] VITALS: BP 146/62
[2018-08-30] MEDS: SODIUM CHLORIDE 0.9% INJ 3ML FLUSH IVF SCH ×2 (06:34→14:00)
[2018-08-30 07:02] LABS: BASOPHILS % 0.6 % (0.0-2.0); EOSINOPHILS % 3.1 % (0.0-5.0); HEMATOCRIT. 36.5 % (42.0-52.0); HEMOGLOBIN. 11.9 g/dL (14.0-18.0); LYMPHOCYTES % 28.6 % (20.0-50.0); MEAN CORPUSCULAR HEMOGLOBIN 29.4 pg (28.0-32.0); MEAN CORPUSCULAR VOLUME 90.1 fL (80.0-94.0); MEAN PLATELET VOLUME 8.1 fl (7.4-10.4); MONOCYTES % 9.9 % (2.0-8.0); NEUTROPHILS % 57.8 % (40.0-76.0); PLATELET 140 x1000/uL (130-400); RED BLOOD CELL COUNT 4.06 mill/uL (4.7-6.1); RED CELL DISTRIBUTION WIDTH 15.9 % (11.6-14.6)
[2018-08-30 07:38] LABS: PHOSPHORUS 5.1 mg/dL (2.5-4.9)
[2018-08-30] MEDS: BLOOD SUGAR DIAGNOSTIC STRIP TEST SCH ×3 (07:40→17:24)
[2018-08-30] MEDS: INSULIN LISPRO 100 UNITS/ML SUBCUT SCH ×2 (07:44→12:43)
[2018-08-30 08:00] VITALS: BP 151/68
[2018-08-30] MEDS: CALCIUM ACETATE 667MG CAPSULE PO SCH ×2 (08:42→13:07)
[2018-08-30] MEDS: OMEPRAZOLE 20MG CAPSULE EXTENDED RELEASE PO SCH (08:43)
[2018-08-30] MEDS: CLOPIDOGREL 75MG TABLET PO SCH (11:11)
[2018-08-30] MEDS: ASPIRIN 81MG EC TABLET PO SCH (11:12)
[2018-08-30] MEDS: ENOXAPARIN 30MG/0.3ML SYR SUBCUT SCH (11:12)
[2018-08-30] MEDS: METOPROLOL TARTRATE 25MG TABLET PO SCH (11:12)
[2018-08-30] MEDS: LOSARTAN POTASSIUM 25 MG TABLET PO SCH (11:12)
[2018-08-30 12:00] VITALS: BP 154/61
[2018-08-30] MEDS: MORPHINE SULFATE 4 MG/ML CPJ (NOT FOR IM USE) IV PRN (12:38)
[2018-08-30 16:00] VITALS: BP 150/72
[2018-08-30 16:04] VITALS: BP 150/72
== END 2018-08-30 18:25 | disposition home or self-care (01) | DRG 380 ==
LOC: ER 10:12 → EDBEDREQ 21:46 → EDBEDREQSVC 21:46 → EDBEDREQTM 21:46 → 7WST 21:51 → EDBEDREQSVC 21:53 → EDBEDREQTM 21:53 → ENRESERV 22:39
PROVIDERS: ADMIT Internal Medicine; ATTEND Internal Medicine
PROC: 5A1D70Z Performance of Urinary Filtration, Intermittent, Less than 6 Hours Per Day (ICD-10-PCS; 2018-08-23)
PROC: 0JBR0ZZ Excision of Left Foot Subcutaneous Tissue and Fascia, Open Approach (ICD-10-PCS; principal; 2018-08-26)
PROC: 0HDMXZZ Extraction of Right Foot Skin, External Approach (ICD-10-PCS; 2018-08-26)
PROC: 5A1D70Z Performance of Urinary Filtration, Intermittent, Less than 6 Hours Per Day (ICD-10-PCS; 2018-08-26)
PROC: 5A1D70Z Performance of Urinary Filtration, Intermittent, Less than 6 Hours Per Day (ICD-10-PCS; 2018-08-28)
PROC: 5A1D70Z Performance of Urinary Filtration, Intermittent, Less than 6 Hours Per Day (ICD-10-PCS; 2018-08-30)
DX: E11.621 Type 2 diabetes mellitus with foot ulcer (principal); L97.509 Non-pressure chronic ulcer of other part of unspecified foot with unspecified severity; I13.2 Hypertensive heart and chronic kidney disease with heart failure and with stage 5 chronic kidney disease, or end stage renal disease; E11.22 Type 2 diabetes mellitus with diabetic chronic kidney disease; E11.319 Type 2 diabetes mellitus with unspecified diabetic retinopathy without macular edema; E11.42 Type 2 diabetes mellitus with diabetic polyneuropathy; E87.1 Hypo-osmolality and hyponatremia; K31.84 Gastroparesis; N10 Acute pyelonephritis; E87.2 Acidosis; N18.6 End stage renal disease; B96.20 Unspecified Escherichia coli [E. coli] as the cause of diseases classified elsewhere; E78.00 Pure hypercholesterolemia, unspecified; E87.5 Hyperkalemia; I50.9 Heart failure, unspecified; N25.81 Secondary hyperparathyroidism of renal origin; Z99.2 Dependence on renal dialysis; K59.00 Constipation, unspecified; E11.43 Type 2 diabetes mellitus with diabetic autonomic (poly)neuropathy; I25.10 Atherosclerotic heart disease of native coronary artery without angina pectoris; I25.2 Old myocardial infarction; N12 Tubulo-interstitial nephritis, not specified as acute or chronic; N30.00 Acute cystitis without hematuria; Z82.49 Family history of ischemic heart disease and other diseases of the circulatory system; Z83.3 Family history of diabetes mellitus; Z90.49 Acquired absence of other specified parts of digestive tract; Z95.5 Presence of coronary angioplasty implant and graft; L84 Corns and callosities
CPT/HCPCS: 36415; 71045; 74176; 78265; 80048; 80076; 82962; 83735; 84100; 86705; 86709; 86803; 87077; 87186; 87340; 90686; 90732; 96366; 96375; 99285; C1893; C9113; J0696; J1170; J1650; J1815; J1940; J2270; J2405; J2765; J3490; J7050; J7060

== ENCOUNTER 2018-09-12 09:33 | Inpatient (IN) | payer MEDICAID, OTHER ==
[~2018-09-12] VITALS: Ht 170.2 cm; Wt 55.8 kg
[~2018-09-12 09:33] MED LIST changes: -SODIUM POLYSTYRENE SULFONATE 15 G/60 ML BOT PO NR
[2018-09-12] MEDS ORDERED: ACETAMINOPHEN 325MG TABLET PO ONE (10:30)
[2018-09-12 10:37] LABS: BASOPHILS % 0.7 % (0.0-2.0); EOSINOPHILS % 1.8 % (0.0-5.0); HEMATOCRIT. 34.3 % (42.0-52.0); HEMOGLOBIN. 11.1 g/dL (14.0-18.0); MEAN CORPUSCULAR VOLUME 89.5 fL (80.0-94.0); MEAN PLATELET VOLUME 8.1 fl (7.4-10.4); MONOCYTES % 8.8 % (2.0-8.0); NEUTROPHILS % 73.7 % (40.0-76.0); PLATELET 158 x1000/uL (130-400); RED BLOOD CELL COUNT 3.83 mill/uL (4.7-6.1); RED CELL DISTRIBUTION WIDTH 15.6 % (11.6-14.6)
[2018-09-12 10:41] LABS: CHLORIDE 104 mEq/L (98-107)
[2018-09-12] MEDS ORDERED: DEXTROSE 50% WATER 50ML SYRINGE IV ONE (11:00)
[2018-09-12] MEDS ORDERED: DIPHENHYDRAMINE 50MG/ML VIAL IV PRN (12:45)
[2018-09-12] MEDS ORDERED: GUAIFENESIN 200MG/10ML SUGAR FREE UDC PO PRN (12:45)
[2018-09-12] MEDS ORDERED: HYDROCODONE/ACETAMINOPHEN 5/325MG TABLET PO PRN (12:45)
[2018-09-12] MEDS ORDERED: IPRATROPIUM/ALBUTEROL 0.5-3(2.5)MG/3ML NEB INH PRN (12:45)
[2018-09-12 12:55] LABS: PHOSPHORUS 5.7 mg/dL (2.5-4.9)
[2018-09-12 13:13] LABS: CLARITY URINE CLEAR (CLEAR); COLOR URINE YELLOW (YELLOW); KETONES URINE NEGATIVE (NEGATIVE); LEUKOCYTE ESTERASE URINE NEGATIVE (NEGATIVE); NITRITE URINE NEGATIVE (NEGATIVE); OCCULT BLOOD URINE TRACE (NEGATIVE); PH URINE 8.5 (4.5-8.0); PROTEIN URINE 3+ (NEGATIVE); UROBILINOGEN URINE 0.2 E.U./dL (0.2-1.0)
[2018-09-12 16:06] LABS: CREATINE KINASE MB FRACTION 1.1 ng/mL (0.5-3.6)
[2018-09-12] MEDS ORDERED: INSU100I28 SQ (17:13)
[2018-09-12] MEDS ORDERED: MORPHINE SULFATE 4 MG/ML CPJ (NOT FOR IM USE) IV PRN (17:15)
[2018-09-12 17:41] VITALS: BP 168/81
[2018-09-12] MEDS ORDERED: DEXTROSE 50% WATER 50ML SYRINGE IV PRN (17:45)
[2018-09-12] MEDS: INSULIN LISPRO 100 UNITS/ML SUBCUT SCH ×2 (17:50→21:06)
[2018-09-12 18:50] VITALS: BP 168/81
[2018-09-12 20:40] VITALS: BP 165/77
[2018-09-12] MEDS: AMLODIPINE 5MG TABLET PO SCH (21:00)
[2018-09-12] MEDS: BLOOD SUGAR DIAGNOSTIC STRIP TEST SCH (21:01)
[2018-09-12] MEDS: DOCUSATE SODIUM 100MG CAPSULE PO PRN (22:40)
[2018-09-13] VITALS: BP 128/62
[2018-09-13 01:14] LABS: CREATINE KINASE MB FRACTION 1.1 ng/mL (0.5-3.6)
[2018-09-13 04:00] VITALS: BP 137/60
[2018-09-13] MEDS: BLOOD SUGAR DIAGNOSTIC STRIP TEST SCH ×4 (06:20→21:43)
[2018-09-13 07:02] LABS: CHLORIDE 103 mEq/L (98-107)
[2018-09-13 07:15] LABS: BASOPHILS % 0.7 % (0.0-2.0); EOSINOPHILS % 3.6 % (0.0-5.0); HEMOGLOBIN. 10.4 g/dL (14.0-18.0); LYMPHOCYTES % 24.8 % (20.0-50.0); MEAN CORPUSCULAR VOLUME 89.5 fL (80.0-94.0); MEAN PLATELET VOLUME 8.2 fl (7.4-10.4); MONOCYTES % 10.1 % (2.0-8.0); NEUTROPHILS % 60.8 % (40.0-76.0); PLATELET 145 x1000/uL (130-400); RED BLOOD CELL COUNT 3.57 mill/uL (4.7-6.1); RED CELL DISTRIBUTION WIDTH 15.5 % (11.6-14.6)
[2018-09-13 07:31] LABS: LDL CHOLESTEROL 60 mg/dL (5-100)
[2018-09-13 07:33] LABS: HDL CHOLESTEROL 69 mg/dL (40-59)
[2018-09-13] MEDS: INSULIN LISPRO 100 UNITS/ML SUBCUT SCH ×4 (07:40→21:43)
[2018-09-13 08:00] VITALS: BP 153/76
[2018-09-13] MEDS: CLOPIDOGREL 75MG TABLET PO SCH (08:12)
[2018-09-13] MEDS: ASPIRIN 81MG EC TABLET PO SCH (08:15)
[2018-09-13] MEDS: AMLODIPINE 5MG TABLET PO SCH ×2 (08:15→21:51)
[2018-09-13] MEDS: ACETAMINOPHEN 325MG TABLET PO PRN (10:26)
[2018-09-13] MEDS: DOCUSATE SODIUM 100MG CAPSULE PO PRN ×2 (10:26→21:41)
[2018-09-13 12:00] VITALS: BP 152/62
[2018-09-13] MEDS: POLYETHYLENE GLYCOL 3350 (17GM) 1 DOSE PACK PO SCH (14:56)
[2018-09-13 16:00] VITALS: BP 152/72
[2018-09-13] MEDS ORDERED: CEFTRIAXONE 1 G PREMIX 50 ML IV SCH (18:00)
[2018-09-13 20:00] VITALS: BP 161/77
[2018-09-13] MEDS: CEFTRIAXONE 1,000 MG in DEXTROSE 5% WATER 50 ML IV SCH (21:41)
[2018-09-13] MEDS: CYCLOBENZAPRINE 10MG TABLET PO SCH (21:50)
[2018-09-14] VITALS: BP 145/67
[2018-09-14] MEDS: BLOOD SUGAR DIAGNOSTIC STRIP TEST SCH ×4 (06:50→20:12)
[2018-09-14] MEDS: CYCLOBENZAPRINE 10MG TABLET PO SCH ×3 (06:58→21:00)
[2018-09-14 07:30] LABS: BASOPHILS % 1.1 % (0.0-2.0); HEMATOCRIT. 32.4 % (42.0-52.0); HEMOGLOBIN. 10.5 g/dL (14.0-18.0); MEAN CORPUSCULAR HEMOGLOBIN 28.9 pg (28.0-32.0); MEAN CORPUSCULAR VOLUME 89.5 fL (80.0-94.0); MEAN PLATELET VOLUME 8.1 fl (7.4-10.4); MONOCYTES % 12.1 % (2.0-8.0); NEUTROPHILS % 41.8 % (40.0-76.0); PLATELET 152 x1000/uL (130-400); RED BLOOD CELL COUNT 3.61 mill/uL (4.7-6.1); RED CELL DISTRIBUTION WIDTH 15.6 % (11.6-14.6)
[2018-09-14] MEDS: INSULIN LISPRO 100 UNITS/ML SUBCUT SCH ×4 (07:50→21:00)
[2018-09-14 08:00] VITALS: BP 151/73
[2018-09-14 08:16] VITALS: BP 152/78
[2018-09-14] MEDS: AMLODIPINE 5MG TABLET PO SCH ×2 (09:00→20:58)
[2018-09-14] MEDS: POLYETHYLENE GLYCOL 3350 (17GM) 1 DOSE PACK PO SCH (09:10)
[2018-09-14] MEDS: ASPIRIN 81MG EC TABLET PO SCH (09:11)
[2018-09-14] MEDS: CLOPIDOGREL 75MG TABLET PO SCH (09:11)
[2018-09-14 12:00] VITALS: BP 121/61
[2018-09-14] MEDS: ACETAMINOPHEN 325MG TABLET PO PRN (12:34)
[2018-09-14] MEDS ORDERED: NA PHOS,M-B/NA PHOS,DI-BA ENEMA 118ML PR ONE (13:45)
[2018-09-14] MEDS ORDERED: LACTULOSE 20G/30ML UDC PO NR (13:45)
[2018-09-14] MEDS ORDERED: LACTULOSE 20G/30ML UDC PO ONE (13:45)
[2018-09-14 16:25] VITALS: BP 118/62
[2018-09-14 20:00] VITALS: BP 133/73
[2018-09-14] MEDS: DOCUSATE SODIUM 100MG CAPSULE PO PRN (20:58)
[2018-09-14] MEDS: CEFTRIAXONE 1,000 MG in DEXTROSE 5% WATER 50 ML IV SCH (20:58)
[2018-09-14] MEDS ORDERED: NA PHOS,M-B/NA PHOS,DI-BA ENEMA 118ML PR PRN (21:00)
[2018-09-15] VITALS (7 sets, daily range): BP systolic 111–153; BP diastolic 66–76
[2018-09-15] MEDS: ACETAMINOPHEN 325MG TABLET PO PRN (03:50)
[2018-09-15] MEDS: CYCLOBENZAPRINE 10MG TABLET PO SCH ×3 (06:25→21:00)
[2018-09-15] MEDS: BLOOD SUGAR DIAGNOSTIC STRIP TEST SCH ×4 (06:25→20:51)
[2018-09-15] MEDS: INSULIN LISPRO 100 UNITS/ML SUBCUT SCH ×4 (08:27→21:00)
[2018-09-15] MEDS: CLOPIDOGREL 75MG TABLET PO SCH (08:29)
[2018-09-15] MEDS: AMLODIPINE 5MG TABLET PO SCH ×2 (08:29→20:40)
[2018-09-15] MEDS: POLYETHYLENE GLYCOL 3350 (17GM) 1 DOSE PACK PO SCH (08:29)
[2018-09-15] MEDS: ASPIRIN 81MG EC TABLET PO SCH (08:29)
[2018-09-15] MEDS: ONDANSETRON HCL 4MG/2ML INJ IV PRN (10:45)
[2018-09-15 10:49] LABS: BASOPHILS % 1.2 % (0.0-2.0); EOSINOPHILS % 6.1 % (0.0-5.0); HEMATOCRIT. 30.6 % (42.0-52.0); HEMOGLOBIN. 9.7 g/dL (14.0-18.0); MEAN CORPUSCULAR HEMOGLOBIN 29.1 pg (28.0-32.0); MEAN CORPUSCULAR VOLUME 91.7 fL (80.0-94.0); MEAN PLATELET VOLUME 7.9 fl (7.4-10.4); MONOCYTES % 12.6 % (2.0-8.0); NEUTROPHILS % 42.1 % (40.0-76.0); PLATELET 149 x1000/uL (130-400); RED BLOOD CELL COUNT 3.34 mill/uL (4.7-6.1); RED CELL DISTRIBUTION WIDTH 15.5 % (11.6-14.6)
[2018-09-15] MEDS ORDERED: CEFTRIAXONE 1,000 MG in CEFTRIAXONE 1 G PREMIX 50 ML IV SCH (21:00)
[2018-09-16] VITALS: BP 136/48
[2018-09-16 04:00] VITALS: BP 124/47
[2018-09-16] MEDS: BLOOD SUGAR DIAGNOSTIC STRIP TEST SCH ×4 (05:43→21:05)
[2018-09-16] MEDS: CYCLOBENZAPRINE 10MG TABLET PO SCH ×3 (05:44→21:52)
[2018-09-16 08:21] LABS: BASOPHILS % 1.2 % (0.0-2.0); EOSINOPHILS % 5.5 % (0.0-5.0); HEMATOCRIT. 30.7 % (42.0-52.0); HEMOGLOBIN. 9.8 g/dL (14.0-18.0); LYMPHOCYTES % 39.6 % (20.0-50.0); MEAN CORPUSCULAR HEMOGLOBIN 28.6 pg (28.0-32.0); MEAN CORPUSCULAR VOLUME 89.2 fL (80.0-94.0); MONOCYTES % 11.6 % (2.0-8.0); NEUTROPHILS % 42.1 % (40.0-76.0); PLATELET 163 x1000/uL (130-400); RED BLOOD CELL COUNT 3.45 mill/uL (4.7-6.1); RED CELL DISTRIBUTION WIDTH 15.2 % (11.6-14.6)
[2018-09-16] MEDS: AMLODIPINE 5MG TABLET PO SCH ×2 (09:42→21:05)
[2018-09-16] MEDS: POLYETHYLENE GLYCOL 3350 (17GM) 1 DOSE PACK PO SCH (09:42)
[2018-09-16] MEDS: ASPIRIN 81MG EC TABLET PO SCH (09:42)
[2018-09-16] MEDS: CLOPIDOGREL 75MG TABLET PO SCH (09:42)
[2018-09-16] MEDS: INSULIN LISPRO 100 UNITS/ML SUBCUT SCH ×4 (09:43→21:00)
[2018-09-16 12:00] VITALS: BP 120/59
[2018-09-16] MEDS: DOCUSATE SODIUM 100MG CAPSULE PO PRN (14:40)
[2018-09-16 15:37] VITALS: BP 140/69
[2018-09-16] MEDS ORDERED: INFLUENZA VIRUS VACCINE(AFLURIA) 0.5ML SYR IM ONE (18:30)
[2018-09-16 20:09] VITALS: BP 153/67
[2018-09-16] MEDS ORDERED: ATORVASTATIN CALCIUM 40MG TABLET PO SCH (21:00)
[2018-09-16] MEDS: LACTULOSE 20G/30ML UDC PO SCH (21:18)
[2018-09-17 00:18] VITALS: BP 146/75
[2018-09-17 04:00] VITALS: BP 152/76
[2018-09-17] MEDS: LACTULOSE 20G/30ML UDC PO SCH ×2 (05:59→13:28)
[2018-09-17] MEDS: CYCLOBENZAPRINE 10MG TABLET PO SCH ×2 (05:59→13:28)
[2018-09-17 07:09] LABS: BASOPHILS % 0.8 % (0.0-2.0); EOSINOPHILS % 4.7 % (0.0-5.0); HEMOGLOBIN. 10.8 g/dL (14.0-18.0); LYMPHOCYTES % 29.3 % (20.0-50.0); MEAN CORPUSCULAR HEMOGLOBIN 29.2 pg (28.0-32.0); MEAN CORPUSCULAR VOLUME 89.1 fL (80.0-94.0); MEAN PLATELET VOLUME 7.3 fl (7.4-10.4); MONOCYTES % 9.3 % (2.0-8.0); NEUTROPHILS % 55.9 % (40.0-76.0); PLATELET 167 x1000/uL (130-400); RED BLOOD CELL COUNT 3.71 mill/uL (4.7-6.1); RED CELL DISTRIBUTION WIDTH 15.4 % (11.6-14.6)
[2018-09-17] MEDS: BLOOD SUGAR DIAGNOSTIC STRIP TEST SCH ×2 (07:28→12:19)
[2018-09-17] MEDS: INSULIN LISPRO 100 UNITS/ML SUBCUT SCH ×2 (07:28→12:19)
[2018-09-17 08:00] VITALS: BP 119/71
[2018-09-17] MEDS: CLOPIDOGREL 75MG TABLET PO SCH (08:46)
[2018-09-17] MEDS: POLYETHYLENE GLYCOL 3350 (17GM) 1 DOSE PACK PO SCH (08:47)
[2018-09-17] MEDS: ASPIRIN 81MG EC TABLET PO SCH (08:47)
[2018-09-17] MEDS: ONDANSETRON HCL 4MG/2ML INJ IV PRN (08:48)
[2018-09-17] MEDS: AMLODIPINE 5MG TABLET PO SCH (08:49)
[2018-09-17 14:50] VITALS: BP 123/74
== END 2018-09-17 17:51 | disposition home or self-care (01) | DRG 380 ==
LOC: ER 09:33 → EDBEDREQ 12:01 → 6WST 12:29 → EDBEDREQ 12:31 → ENRESERV 14:08
PROVIDERS: ADMIT Internal Medicine; ATTEND Internal Medicine
PROC: 5A1D70Z Performance of Urinary Filtration, Intermittent, Less than 6 Hours Per Day (ICD-10-PCS; 2018-09-12)
PROC: 5A1D70Z Performance of Urinary Filtration, Intermittent, Less than 6 Hours Per Day (ICD-10-PCS; 2018-09-14)
PROC: 0JBR0ZZ Excision of Left Foot Subcutaneous Tissue and Fascia, Open Approach (ICD-10-PCS; principal; 2018-09-16)
PROC: 0HDMXZZ Extraction of Right Foot Skin, External Approach (ICD-10-PCS; 2018-09-16)
PROC: 5A1D70Z Performance of Urinary Filtration, Intermittent, Less than 6 Hours Per Day (ICD-10-PCS; 2018-09-16)
DX: E11.621 Type 2 diabetes mellitus with foot ulcer (principal); L97.529 Non-pressure chronic ulcer of other part of left foot with unspecified severity; I13.2 Hypertensive heart and chronic kidney disease with heart failure and with stage 5 chronic kidney disease, or end stage renal disease; E11.22 Type 2 diabetes mellitus with diabetic chronic kidney disease; E11.42 Type 2 diabetes mellitus with diabetic polyneuropathy; E87.5 Hyperkalemia; E11.319 Type 2 diabetes mellitus with unspecified diabetic retinopathy without macular edema; K31.84 Gastroparesis; N12 Tubulo-interstitial nephritis, not specified as acute or chronic; E11.649 Type 2 diabetes mellitus with hypoglycemia without coma; N18.6 End stage renal disease; E11.43 Type 2 diabetes mellitus with diabetic autonomic (poly)neuropathy; I50.9 Heart failure, unspecified; M54.2 Cervicalgia; D63.8 Anemia in other chronic diseases classified elsewhere; E78.5 Hyperlipidemia, unspecified; E11.622 Type 2 diabetes mellitus with other skin ulcer; I25.10 Atherosclerotic heart disease of native coronary artery without angina pectoris; R26.9 Unspecified abnormalities of gait and mobility; E11.65 Type 2 diabetes mellitus with hyperglycemia; I34.0 Nonrheumatic mitral (valve) insufficiency; K59.00 Constipation, unspecified; Z79.02 Long term (current) use of antithrombotics/antiplatelets; Z79.82 Long term (current) use of aspirin; Z90.49 Acquired absence of other specified parts of digestive tract; Z91.15 Patient's noncompliance with renal dialysis; Z79.4 Long term (current) use of insulin; Z91.19 Patient's noncompliance with other medical treatment and regimen; I25.2 Old myocardial infarction; Z99.2 Dependence on renal dialysis; Z95.5 Presence of coronary angioplasty implant and graft; Z79.899 Other long term (current) drug therapy; L57.0 Actinic keratosis
CPT/HCPCS: 36415; 71045; 74018; 80048; 80061; 82550; 82553; 82962; 83605; 83735; 84100; 84145; 84443; 84484; 90686; 93005; 93970; 96374; 97110; 97162; 97166; 99285; J0696; J1200; J1815; J2270; J2405; J7040; J7060

== ENCOUNTER 2019-05-29 22:33 | Inpatient (IN) | payer MEDICAID ==
[~2019-05-29] VITALS: Ht 165.1 cm; Wt 60.9 kg
[~2019-05-29 22:33] MED LIST changes: -CLOP75TA16 PO; +CLOP75TA4 PO; -IBUP-2271 PO; +IBUP-2741 PO; +INSU100I28 SQ
[2019-05-29] MEDS ORDERED: ASPIRIN 81MG TABLET PO ONE (23:30)
[2019-05-30] VITALS (17 sets, daily range): BP systolic 113–153; BP diastolic 49–91
[2019-05-30 00:19] LABS: HEMATOCRIT. 32.9 % (42.0-52.0); HEMOGLOBIN. 10.7 g/dL (14.0-18.0); MEAN CORPUSCULAR HEMOGLOBIN 27.8 pg (28.0-32.0); MEAN CORPUSCULAR VOLUME 85.2 fL (80.0-94.0); MEAN PLATELET VOLUME 8.2 fl (7.4-10.4); PLATELET 92 x1000/uL (130-400); RED BLOOD CELL COUNT 3.86 mill/uL (4.7-6.1); RED CELL DISTRIBUTION WIDTH 20.8 % (11.6-14.6)
[2019-05-30 00:30] LABS: CHLORIDE 95 mEq/L (98-107)
[2019-05-30 00:37] LABS: BETA HYDROXYBUTYRATE 0.1 mMol/L (0.0-0.3)
[2019-05-30] MEDS ORDERED: DEXTROSE 50% WATER 50ML SYRINGE IV NR (00:45)
[2019-05-30] MEDS ORDERED: CALCIUM CHLORIDE 1GM/10ML SYR IV NR (00:45)
[2019-05-30] MEDS ORDERED: SODIUM CHLORIDE 0.9% 1,000 ML IV NR (00:45)
[2019-05-30] MEDS ORDERED: SODIUM BICARBONATE 8.4% 1 MEQ/ML 50ML SYR IV NR (00:45)
[2019-05-30] MEDS ORDERED: INSULIN REGULAR (HUMULIN R) 300UNITS/3ML IV NR (00:45)
[2019-05-30] MEDS ORDERED: PIPERACILLIN/TAZOBACTAM 3.375GM/50ML PREMIX IV ONE (01:15)
[2019-05-30] MEDS ORDERED: VANCOMYCIN 1 G PREMIX 200 ML IV SCH (01:15)
[2019-05-30] MEDS ORDERED: PIPERACILLIN/TAZOBACTAM 2.25 G in DEXTROSE 5% WATER 50 ML IV NR (01:15)
[2019-05-30] MEDS ORDERED: SODIUM CHLORIDE 0.9% 1,000 ML IV ONE ×3 (02:45→03:45)
[2019-05-30] MEDS ORDERED: NOREPINEPHRINE 4MG/250ML PMX 250 ML IV PRN (03:45)
[2019-05-30] MEDS ORDERED: NOREPINEPHRINE 4 MG in DEXT 5% WATER 246 ML IV PRN ×2 (03:45→08:00)
[2019-05-30 04:01] LABS: PLATELET ESTIMATE SLIGHTLY DECREASED
[2019-05-30] MEDS ORDERED: PIPERACILLIN/TAZOBACTAM 3.375 G in DEXT 5% WATER 100 ML IV SCH (08:45)
[2019-05-30] MEDS: PANTOPRAZOLE SODIUM 40 MG/VIAL IV SCH (09:44)
[2019-05-30] MEDS ORDERED: VANCOMYCIN 500 MG PREMIX 100 ML IV SCH (10:00)
[2019-05-30] MEDS: PIPERACILLIN/TAZOBACTAM 2.25 G in DEXTROSE 5% WATER 50 ML IV SCH ×2 (10:51→23:01)
[2019-05-30] MEDS ORDERED: INFLUENZA VIRUS VACCINE(AFLURIA) 0.5ML SYR IM ONE (11:00)
[2019-05-30] MEDS: BLOOD SUGAR DIAGNOSTIC STRIP TEST SCH ×3 (11:52→21:17)
[2019-05-30] MEDS: INSULIN LISPRO 100 UNITS/ML SUBCUT SCH ×3 (12:36→21:00)
[2019-05-31] VITALS (12 sets, daily range): BP systolic 97–150; BP diastolic 50–101
[2019-05-31] MEDS: BLOOD SUGAR DIAGNOSTIC STRIP TEST SCH ×4 (08:17→21:00)
[2019-05-31 08:34] LABS: BASOPHILS % 0.6 % (0.0-2.0); EOSINOPHILS % 0.1 % (0.0-5.0); HEMATOCRIT. 30.1 % (42.0-52.0); HEMOGLOBIN. 9.8 g/dL (14.0-18.0); LYMPHOCYTES % 9.6 % (20.0-50.0); MEAN CORPUSCULAR HEMOGLOBIN 27.6 pg (28.0-32.0); MEAN CORPUSCULAR VOLUME 84.3 fL (80.0-94.0); MEAN PLATELET VOLUME 7.9 fl (7.4-10.4); MONOCYTES % 5.1 % (2.0-8.0); NEUTROPHILS % 84.6 % (40.0-76.0); PLATELET 103 x1000/uL (130-400); RED BLOOD CELL COUNT 3.57 mill/uL (4.7-6.1); RED CELL DISTRIBUTION WIDTH 21.4 % (11.6-14.6)
[2019-05-31] MEDS: PANTOPRAZOLE SODIUM 40 MG/VIAL IV SCH (09:08)
[2019-05-31] MEDS: INSULIN LISPRO 100 UNITS/ML SUBCUT SCH ×4 (09:10→22:45)
[2019-05-31] MEDS ORDERED: VANCOMYCIN 500 MG PREMIX 100 ML IV SCH (11:00)
[2019-05-31] MEDS: PIPERACILLIN/TAZOBACTAM 2.25 G in DEXTROSE 5% WATER 50 ML IV SCH ×2 (11:58→22:44)
[2019-05-31] MEDS ORDERED: CLONIDINE 0.1MG TABLET PO PRN (12:00)
[2019-05-31] MEDS: LOSARTAN POTASSIUM 25 MG TABLET PO SCH (13:51)
[2019-05-31] MEDS: CARVEDILOL 6.25 MG TABLET PO SCH (22:43)
[2019-06-01] VITALS (13 sets, daily range): BP systolic 79–124; BP diastolic 51–75
[2019-06-01 07:17] LABS: HEMOGLOBIN. 9.9 g/dL (14.0-18.0); MEAN CORPUSCULAR HEMOGLOBIN 27.2 pg (28.0-32.0); MEAN CORPUSCULAR VOLUME 84.7 fL (80.0-94.0); MEAN PLATELET VOLUME 7.9 fl (7.4-10.4); PLATELET 109 x1000/uL (130-400); RED BLOOD CELL COUNT 3.66 mill/uL (4.7-6.1)
[2019-06-01] MEDS: BLOOD SUGAR DIAGNOSTIC STRIP TEST SCH ×4 (08:13→21:00)
[2019-06-01] MEDS: PANTOPRAZOLE SODIUM 40 MG/VIAL IV SCH (08:24)
[2019-06-01] MEDS: PIPERACILLIN/TAZOBACTAM 2.25 G in DEXTROSE 5% WATER 50 ML IV SCH ×2 (08:25→20:39)
[2019-06-01] MEDS: CARVEDILOL 6.25 MG TABLET PO SCH ×2 (08:26→20:39)
[2019-06-01] MEDS: LOSARTAN POTASSIUM 25 MG TABLET PO SCH (08:26)
[2019-06-01] MEDS: INSULIN LISPRO 100 UNITS/ML SUBCUT SCH ×4 (08:28→21:09)
[2019-06-01 17:21] LABS: PLATELET ESTIMATE DECREASED
[2019-06-01] MEDS ORDERED: SODIUM CHLORIDE 0.9% 500 ML IV SCH (18:45)
[2019-06-01] MEDS ORDERED: SODIUM CHLORIDE 0.9% 500 ML IV NR ×2 (18:54→18:56)
[2019-06-01] MEDS: INSULIN GLARGINE UD 100 UNITS/ML SYR SUBCUT SCH (21:40)
[2019-06-02] VITALS (12 sets, daily range): BP systolic 91–150; BP diastolic 46–81
[2019-06-02 07:39] LABS: HEMOGLOBIN. 8.7 g/dL (14.0-18.0); MEAN CORPUSCULAR HEMOGLOBIN 27.3 pg (28.0-32.0); MEAN CORPUSCULAR VOLUME 84.3 fL (80.0-94.0); MEAN PLATELET VOLUME 8.1 fl (7.4-10.4); PLATELET 109 x1000/uL (130-400); RED CELL DISTRIBUTION WIDTH 21.1 % (11.6-14.6)
[2019-06-02] MEDS: INSULIN LISPRO 100 UNITS/ML SUBCUT SCH ×4 (08:00→21:00)
[2019-06-02] MEDS: BLOOD SUGAR DIAGNOSTIC STRIP TEST SCH ×4 (08:02→21:10)
[2019-06-02] MEDS: PANTOPRAZOLE SODIUM 40 MG/VIAL IV SCH (08:26)
[2019-06-02] MEDS: PIPERACILLIN/TAZOBACTAM 2.25 G in DEXTROSE 5% WATER 50 ML IV SCH ×2 (08:26→21:10)
[2019-06-02] MEDS: LOSARTAN POTASSIUM 25 MG TABLET PO SCH (08:27)
[2019-06-02] MEDS: CARVEDILOL 6.25 MG TABLET PO SCH (08:27)
[2019-06-02] MEDS: MORPHINE SULFATE 2 MG/ML CPJ (NOT FOR IM USE) IV PRN (09:28)
[2019-06-02 10:07] LABS: PLATELET ESTIMATE DECREASED
[2019-06-02] MEDS: INSULIN GLARGINE UD 100 UNITS/ML SYR SUBCUT SCH ×2 (10:22→22:47)
[2019-06-02] MEDS ORDERED: SODIUM CHLORIDE 0.9% 250 ML IV ONE (12:15)
[2019-06-02] MEDS: MIDODRINE HCL 5MG TABLET PO SCH ×2 (12:49→17:41)
[2019-06-02] MEDS ORDERED: VANCOMYCIN 500 MG PREMIX 100 ML IV SCH (17:00)
[2019-06-02] MEDS ORDERED: SODIUM CHLORIDE 0.9% 500 ML IV ONE (20:00)
[2019-06-03] VITALS (12 sets, daily range): BP systolic 92–137; BP diastolic 39–118
[2019-06-03] MEDS: MORPHINE SULFATE 2 MG/ML CPJ (NOT FOR IM USE) IV PRN ×2 (01:09→20:18)
[2019-06-03 07:18] LABS: HEMATOCRIT. 26.2 % (42.0-52.0); HEMOGLOBIN. 8.5 g/dL (14.0-18.0); MEAN CORPUSCULAR HEMOGLOBIN 27.6 pg (28.0-32.0); MEAN CORPUSCULAR VOLUME 84.9 fL (80.0-94.0); MEAN PLATELET VOLUME 7.9 fl (7.4-10.4); PLATELET 114 x1000/uL (130-400); RED BLOOD CELL COUNT 3.09 mill/uL (4.7-6.1); RED CELL DISTRIBUTION WIDTH 20.9 % (11.6-14.6)
[2019-06-03] MEDS: BLOOD SUGAR DIAGNOSTIC STRIP TEST SCH ×4 (07:33→21:00)
[2019-06-03] MEDS: PANTOPRAZOLE SODIUM 40 MG/VIAL IV SCH (08:48)
[2019-06-03] MEDS: PIPERACILLIN/TAZOBACTAM 2.25 G in DEXTROSE 5% WATER 50 ML IV SCH ×2 (08:48→20:32)
[2019-06-03] MEDS: INSULIN LISPRO 100 UNITS/ML SUBCUT SCH ×4 (08:50→22:31)
[2019-06-03] MEDS: MIDODRINE HCL 5MG TABLET PO SCH ×3 (08:51→18:16)
[2019-06-03] MEDS: INSULIN GLARGINE UD 100 UNITS/ML SYR SUBCUT SCH ×2 (11:52→22:32)
[2019-06-03 16:22] LABS: PLATELET ESTIMATE SLIGHTLY DECREASED
[2019-06-03] MEDS: ACETAMINOPHEN 325MG TABLET PO PRN (18:16)
[2019-06-03] MEDS: CARVEDILOL 6.25 MG TABLET PO SCH (20:33)
[2019-06-04] VITALS (11 sets, daily range): BP systolic 94–165; BP diastolic 47–70
[2019-06-04] MEDS: ACETAMINOPHEN 325MG TABLET PO PRN (05:35)
[2019-06-04 07:09] LABS: HEMATOCRIT. 25.4 % (42.0-52.0); HEMOGLOBIN. 8.3 g/dL (14.0-18.0); MEAN CORPUSCULAR HEMOGLOBIN 27.6 pg (28.0-32.0); MEAN CORPUSCULAR VOLUME 84.7 fL (80.0-94.0); PLATELET 134 x1000/uL (130-400); RED CELL DISTRIBUTION WIDTH 20.5 % (11.6-14.6)
[2019-06-04] MEDS: BLOOD SUGAR DIAGNOSTIC STRIP TEST SCH ×4 (08:00→21:00)
[2019-06-04] MEDS: INSULIN LISPRO 100 UNITS/ML SUBCUT SCH ×4 (08:00→21:00)
[2019-06-04] MEDS: PANTOPRAZOLE SODIUM 40 MG/VIAL IV SCH (08:48)
[2019-06-04] MEDS: PIPERACILLIN/TAZOBACTAM 2.25 G in DEXTROSE 5% WATER 50 ML IV SCH ×2 (08:48→20:39)
[2019-06-04] MEDS: MIDODRINE HCL 5MG TABLET PO SCH ×3 (08:48→16:50)
[2019-06-04] MEDS: CARVEDILOL 6.25 MG TABLET PO SCH ×2 (08:49→20:41)
[2019-06-04] MEDS: MORPHINE SULFATE 2 MG/ML CPJ (NOT FOR IM USE) IV PRN ×2 (10:39→15:03)
[2019-06-04] MEDS: INSULIN GLARGINE UD 100 UNITS/ML SYR SUBCUT SCH ×2 (10:43→22:23)
[2019-06-04] MEDS ORDERED: BUPIVACAINE HCL/PF 0.5% (5MG/ML) 10ML ONE (11:54)
[2019-06-04] MEDS ORDERED: LIDOCAINE HCL 1% 20ML VIAL (Pyxis) INJ ONE (11:54)
[2019-06-04] MEDS ORDERED: BACITRACIN 50,000 UNITS/VIAL ONE (11:55)
[2019-06-04] MEDS ORDERED: TRIAMCINOLONE ACETONIDE 40MG/ML 1ML VIAL ONE (11:56)
[2019-06-04] MEDS ORDERED: DEXAMETHASONE 4MG/ML 1ML VIAL ONE (11:56)
[2019-06-04 17:40] LABS: PLATELET ESTIMATE NORMAL
[2019-06-04] MEDS ORDERED: FENTANYL CITRATE/PF 50MCG/ML 2ML VIAL ONE (18:08)
[2019-06-04] MEDS ORDERED: DIPHENHYDRAMINE 50MG/ML VIAL ONE (18:08)
[2019-06-04] MEDS ORDERED: MIDAZOLAM HCL 2 MG/2 ML VIAL ONE (18:08)
[2019-06-04] MEDS ORDERED: HYDROMORPHONE HCL/PF 2MG/ML CPJ IV PRN (19:00)
[2019-06-04] MEDS ORDERED: VANCOMYCIN 1 G PREMIX 200 ML IV SCH (21:00)
[2019-06-05] VITALS (12 sets, daily range): BP systolic 94–136; BP diastolic 42–74
[2019-06-05 06:27] LABS: HEMATOCRIT. 29.4 % (42.0-52.0); HEMOGLOBIN. 9.6 g/dL (14.0-18.0); MEAN CORPUSCULAR HEMOGLOBIN 27.6 pg (28.0-32.0); MEAN CORPUSCULAR VOLUME 84.9 fL (80.0-94.0); MEAN PLATELET VOLUME 7.9 fl (7.4-10.4); PLATELET 192 x1000/uL (130-400); RED BLOOD CELL COUNT 3.46 mill/uL (4.7-6.1)
[2019-06-05] MEDS: BLOOD SUGAR DIAGNOSTIC STRIP TEST SCH ×4 (07:45→21:00)
[2019-06-05] MEDS: DEXTROSE 50% WATER 50ML SYRINGE IV PRN (07:46)
[2019-06-05] MEDS: INSULIN LISPRO 100 UNITS/ML SUBCUT SCH ×4 (07:46→20:52)
[2019-06-05] MEDS: MORPHINE SULFATE 2 MG/ML CPJ (NOT FOR IM USE) IV PRN ×3 (09:31→23:18)
[2019-06-05] MEDS: PANTOPRAZOLE SODIUM 40 MG/VIAL IV SCH (09:32)
[2019-06-05] MEDS: PIPERACILLIN/TAZOBACTAM 2.25 G in DEXTROSE 5% WATER 50 ML IV SCH ×2 (09:32→20:30)
[2019-06-05] MEDS: MIDODRINE HCL 5MG TABLET PO SCH ×3 (09:42→18:06)
[2019-06-05] MEDS: CARVEDILOL 6.25 MG TABLET PO SCH ×2 (09:43→20:30)
[2019-06-05] MEDS: INSULIN GLARGINE UD 100 UNITS/ML SYR SUBCUT SCH (11:43)
[2019-06-05 20:39] LABS: PLATELET ESTIMATE NORMAL
[2019-06-06] VITALS (18 sets, daily range): BP systolic 87–119; BP diastolic 33–73
[2019-06-06] MEDS: INSULIN GLARGINE UD 100 UNITS/ML SYR SUBCUT SCH ×3 (00:16→22:00)
[2019-06-06] MEDS: BLOOD SUGAR DIAGNOSTIC STRIP TEST SCH ×4 (07:56→20:29)
[2019-06-06] MEDS: INSULIN LISPRO 100 UNITS/ML SUBCUT SCH ×4 (07:56→21:00)
[2019-06-06] MEDS: CARVEDILOL 6.25 MG TABLET PO SCH ×2 (09:00→20:28)
[2019-06-06] MEDS: MIDODRINE HCL 5MG TABLET PO SCH ×3 (09:33→17:22)
[2019-06-06] MEDS: PIPERACILLIN/TAZOBACTAM 2.25 G in DEXTROSE 5% WATER 50 ML IV SCH (09:33)
[2019-06-06] MEDS: PANTOPRAZOLE SODIUM 40 MG/VIAL IV SCH (09:33)
[2019-06-06] MEDS: MORPHINE SULFATE 2 MG/ML CPJ (NOT FOR IM USE) IV PRN ×2 (09:35→17:24)
[2019-06-06 14:15] LABS: BASOPHILS % 0.7 % (0.0-2.0); EOSINOPHILS % 2.7 % (0.0-5.0); HEMATOCRIT. 21.5 % (42.0-52.0); LYMPHOCYTES % 8.4 % (20.0-50.0); MEAN CORPUSCULAR HEMOGLOBIN 28.1 pg (28.0-32.0); MEAN CORPUSCULAR VOLUME 86.2 fL (80.0-94.0); MEAN PLATELET VOLUME 7.6 fl (7.4-10.4); MONOCYTES % 8.3 % (2.0-8.0); NEUTROPHILS % 79.9 % (40.0-76.0); PLATELET 221 x1000/uL (130-400)
[2019-06-06] MEDS ORDERED: LACTULOSE 20G/30ML UDC PO NR (15:30)
[2019-06-06] MEDS: DOCUSATE SODIUM 100MG CAPSULE PO SCH (17:22)
[2019-06-06] MEDS: SEVELAMER CARBONATE 800 MG TABLET PO SCH (18:00)
[2019-06-06 18:01] LABS: HEMATOCRIT. 21.8 % (42.0-52.0); HEMOGLOBIN. 7.1 g/dL (14.0-18.0); MEAN CORPUSCULAR HEMOGLOBIN 28.3 pg (28.0-32.0); MEAN CORPUSCULAR VOLUME 86.9 fL (80.0-94.0); MEAN PLATELET VOLUME 7.5 fl (7.4-10.4); PLATELET 242 x1000/uL (130-400); RED BLOOD CELL COUNT 2.51 mill/uL (4.7-6.1); RED CELL DISTRIBUTION WIDTH 20.1 % (11.6-14.6)
[2019-06-06 18:13] LABS: PHOSPHORUS 6.2 mg/dL (2.5-4.9)
[2019-06-06 21:05] LABS: PLATELET ESTIMATE NORMAL
[2019-06-06] MEDS: EPOETIN ALFA 10000UNITS/ML VIAL SUBCUT SCH (21:34)
[2019-06-06] MEDS ORDERED: VANCOMYCIN 1 G PREMIX 200 ML IV NR (23:00)
[2019-06-06] MEDS: CEFTRIAXONE 2 G in DEXTROSE 5% WATER 50 ML IV SCH (23:05)
[2019-06-07] VITALS (13 sets, daily range): BP systolic 111–149; BP diastolic 39–84
[2019-06-07] MEDS: MORPHINE SULFATE 2 MG/ML CPJ (NOT FOR IM USE) IV PRN (01:55)
[2019-06-07] MEDS: BLOOD SUGAR DIAGNOSTIC STRIP TEST SCH ×4 (07:47→21:22)
[2019-06-07] MEDS: INSULIN LISPRO 100 UNITS/ML SUBCUT SCH ×4 (08:00→21:00)
[2019-06-07] MEDS: CARVEDILOL 6.25 MG TABLET PO SCH ×2 (08:23→21:43)
[2019-06-07] MEDS: MIDODRINE HCL 5MG TABLET PO SCH ×3 (08:23→17:08)
[2019-06-07] MEDS: PANTOPRAZOLE SODIUM 40 MG/VIAL IV SCH (08:23)
[2019-06-07] MEDS: SEVELAMER CARBONATE 800 MG TABLET PO SCH ×3 (08:24→17:08)
[2019-06-07] MEDS: DOCUSATE SODIUM 100MG CAPSULE PO SCH ×2 (08:24→17:08)
[2019-06-07] MEDS ORDERED: POLYETHYLENE GLYCOL 3350 (17GM) 1 DOSE PACK PO NR (10:00)
[2019-06-07] MEDS: INSULIN GLARGINE UD 100 UNITS/ML SYR SUBCUT SCH ×2 (10:02→21:37)
[2019-06-07 10:34] LABS: HEMATOCRIT. 30.7 % (42.0-52.0); HEMOGLOBIN. 10.1 g/dL (14.0-18.0); MEAN CORPUSCULAR HEMOGLOBIN 27.3 pg (28.0-32.0); MEAN CORPUSCULAR VOLUME 83.4 fL (80.0-94.0); MEAN PLATELET VOLUME 7.3 fl (7.4-10.4); PLATELET 277 x1000/uL (130-400); RED BLOOD CELL COUNT 3.68 mill/uL (4.7-6.1); RED CELL DISTRIBUTION WIDTH 20.3 % (11.6-14.6)
[2019-06-07] MEDS ORDERED: POLYETHYLENE GLYCOL 3350 (17GM) 1 DOSE PACK PO PRN (16:00)
[2019-06-07] MEDS: MEGESTROL ACETATE 20MG TABLET PO SCH (17:17)
[2019-06-07] MEDS: LACTULOSE 20G/30ML UDC PO SCH (21:38)
[2019-06-07] MEDS: CEFTRIAXONE 2 G in DEXTROSE 5% WATER 50 ML IV SCH (21:38)
[2019-06-08] VITALS (12 sets, daily range): BP systolic 102–134; BP diastolic 42–81
[2019-06-08] MEDS: MORPHINE SULFATE 2 MG/ML CPJ (NOT FOR IM USE) IV PRN (03:43)
[2019-06-08] MEDS: INSULIN LISPRO 100 UNITS/ML SUBCUT SCH ×4 (08:00→22:05)
[2019-06-08] MEDS: BLOOD SUGAR DIAGNOSTIC STRIP TEST SCH ×4 (08:31→21:00)
[2019-06-08] MEDS: SEVELAMER CARBONATE 800 MG TABLET PO SCH ×3 (09:08→18:40)
[2019-06-08] MEDS: DOCUSATE SODIUM 100MG CAPSULE PO SCH ×2 (09:10→17:02)
[2019-06-08] MEDS: MIDODRINE HCL 5MG TABLET PO SCH ×3 (09:10→17:00)
[2019-06-08] MEDS: PANTOPRAZOLE SODIUM 40 MG/VIAL IV SCH (09:10)
[2019-06-08] MEDS: CARVEDILOL 6.25 MG TABLET PO SCH ×2 (09:11→22:06)
[2019-06-08] MEDS: FOLIC ACID/VITAMIN B COMP W-C TABLET PO SCH (09:23)
[2019-06-08] MEDS: MEGESTROL ACETATE 20MG TABLET PO SCH ×2 (09:23→16:57)
[2019-06-08] MEDS: INSULIN GLARGINE UD 100 UNITS/ML SYR SUBCUT SCH ×2 (10:31→22:05)
[2019-06-08 16:10] LABS: PLATELET ESTIMATE NORMAL
[2019-06-08] MEDS: CEFTRIAXONE 2 G in DEXTROSE 5% WATER 50 ML IV SCH (22:01)
[2019-06-08] MEDS: LACTULOSE 20G/30ML UDC PO SCH (22:07)
[2019-06-09] VITALS (12 sets, daily range): BP systolic 91–142; BP diastolic 33–77
[2019-06-09 06:13] LABS: BASOPHILS % 1.1 % (0.0-2.0); EOSINOPHILS % 4.3 % (0.0-5.0); HEMATOCRIT. 29.6 % (42.0-52.0); HEMOGLOBIN. 9.9 g/dL (14.0-18.0); MEAN CORPUSCULAR HEMOGLOBIN 28.1 pg (28.0-32.0); MEAN CORPUSCULAR VOLUME 84.2 fL (80.0-94.0); MEAN PLATELET VOLUME 7.1 fl (7.4-10.4); MONOCYTES % 8.9 % (2.0-8.0); NEUTROPHILS % 76.7 % (40.0-76.0); PLATELET 370 x1000/uL (130-400); RED BLOOD CELL COUNT 3.51 mill/uL (4.7-6.1); RED CELL DISTRIBUTION WIDTH 20.6 % (11.6-14.6)
[2019-06-09] MEDS: BLOOD SUGAR DIAGNOSTIC STRIP TEST SCH ×4 (07:51→21:00)
[2019-06-09] MEDS: INSULIN LISPRO 100 UNITS/ML SUBCUT SCH ×4 (08:00→22:30)
[2019-06-09] MEDS: FOLIC ACID/VITAMIN B COMP W-C TABLET PO SCH (08:31)
[2019-06-09] MEDS: MEGESTROL ACETATE 20MG TABLET PO SCH ×2 (08:31→17:50)
[2019-06-09] MEDS: PANTOPRAZOLE SODIUM 40 MG/VIAL IV SCH (08:31)
[2019-06-09] MEDS: SEVELAMER CARBONATE 800 MG TABLET PO SCH ×3 (08:31→17:51)
[2019-06-09] MEDS: DOCUSATE SODIUM 100MG CAPSULE PO SCH ×2 (08:31→17:00)
[2019-06-09] MEDS: CARVEDILOL 6.25 MG TABLET PO SCH ×2 (08:32→22:08)
[2019-06-09] MEDS: MIDODRINE HCL 5MG TABLET PO SCH ×3 (08:32→17:00)
[2019-06-09] MEDS: INSULIN GLARGINE UD 100 UNITS/ML SYR SUBCUT SCH ×2 (14:28→22:30)
[2019-06-09] MEDS: MORPHINE SULFATE 2 MG/ML CPJ (NOT FOR IM USE) IV PRN (17:51)
[2019-06-09] MEDS: LACTULOSE 20G/30ML UDC PO SCH (21:00)
[2019-06-09] MEDS: CEFTRIAXONE 2 G in DEXTROSE 5% WATER 50 ML IV SCH (22:07)
[2019-06-09] MEDS: EPOETIN ALFA 10000UNITS/ML VIAL SUBCUT SCH (22:07)
[2019-06-10] VITALS (12 sets, daily range): BP systolic 104–132; BP diastolic 23–76
[2019-06-10] MEDS: INSULIN LISPRO 100 UNITS/ML SUBCUT SCH ×4 (08:00→21:21)
[2019-06-10] MEDS: BLOOD SUGAR DIAGNOSTIC STRIP TEST SCH ×4 (08:24→21:00)
[2019-06-10] MEDS: DOCUSATE SODIUM 100MG CAPSULE PO SCH ×2 (09:00→17:00)
[2019-06-10] MEDS: CARVEDILOL 6.25 MG TABLET PO SCH ×2 (09:00→21:13)
[2019-06-10] MEDS: SEVELAMER CARBONATE 800 MG TABLET PO SCH ×3 (09:21→18:56)
[2019-06-10] MEDS: MORPHINE SULFATE 2 MG/ML CPJ (NOT FOR IM USE) IV PRN ×3 (09:21→22:53)
[2019-06-10] MEDS: FOLIC ACID/VITAMIN B COMP W-C TABLET PO SCH (09:22)
[2019-06-10] MEDS: MEGESTROL ACETATE 20MG TABLET PO SCH ×2 (09:22→17:00)
[2019-06-10] MEDS: MIDODRINE HCL 5MG TABLET PO SCH (09:22)
[2019-06-10] MEDS: PANTOPRAZOLE SODIUM 40 MG/VIAL IV SCH (09:22)
[2019-06-10] MEDS: INSULIN GLARGINE UD 100 UNITS/ML SYR SUBCUT SCH ×2 (10:59→22:18)
[2019-06-10] MEDS: TAMSULOSIN HCL 0.4MG SR CAPSULE PO SCH (11:00)
[2019-06-10 12:59] LABS: CLARITY URINE CLEAR (CLEAR); COLOR URINE YELLOW (YELLOW); KETONES URINE NEGATIVE (NEGATIVE); LEUKOCYTE ESTERASE URINE NEGATIVE (NEGATIVE); NITRITE URINE NEGATIVE (NEGATIVE); OCCULT BLOOD URINE TRACE (NEGATIVE); PH URINE >=9.0 (4.5-8.0); PROTEIN URINE 2+ (NEGATIVE); UROBILINOGEN URINE 0.2 E.U./dL (0.2-1.0)
[2019-06-10] MEDS: DEXTROSE 50% WATER 50ML SYRINGE IV PRN (17:25)
[2019-06-10] MEDS: EPOETIN ALFA 10000UNITS/ML VIAL SUBCUT SCH (20:35)
[2019-06-10] MEDS: LACTULOSE 20G/30ML UDC PO SCH (21:12)
[2019-06-10] MEDS: CEFTRIAXONE 2 G in DEXTROSE 5% WATER 50 ML IV SCH (22:21)
[2019-06-11] VITALS (11 sets, daily range): BP systolic 100–166; BP diastolic 49–75
[2019-06-11] MEDS: DEXTROSE 50% WATER 50ML SYRINGE IV PRN (03:11)
[2019-06-11] MEDS: ONDANSETRON HCL 4MG/2ML INJ IV PRN ×2 (03:54→19:52)
[2019-06-11] MEDS: MORPHINE SULFATE 2 MG/ML CPJ (NOT FOR IM USE) IV PRN ×3 (03:54→14:05)
[2019-06-11 07:17] LABS: BASOPHILS % 1.5 % (0.0-2.0); EOSINOPHILS % 3.4 % (0.0-5.0); HEMATOCRIT. 31.6 % (42.0-52.0); HEMOGLOBIN. 10.3 g/dL (14.0-18.0); LYMPHOCYTES % 7.6 % (20.0-50.0); MEAN CORPUSCULAR HEMOGLOBIN 27.8 pg (28.0-32.0); MEAN CORPUSCULAR VOLUME 85.5 fL (80.0-94.0); MEAN PLATELET VOLUME 6.7 fl (7.4-10.4); MONOCYTES % 7.4 % (2.0-8.0); NEUTROPHILS % 80.1 % (40.0-76.0); PLATELET 452 x1000/uL (130-400)
[2019-06-11] MEDS: INSULIN LISPRO 100 UNITS/ML SUBCUT SCH ×4 (08:00→21:05)
[2019-06-11] MEDS: BLOOD SUGAR DIAGNOSTIC STRIP TEST SCH ×4 (08:27→21:00)
[2019-06-11] MEDS: SEVELAMER CARBONATE 800 MG TABLET PO SCH ×3 (09:21→18:06)
[2019-06-11] MEDS: MEGESTROL ACETATE 20MG TABLET PO SCH (09:21)
[2019-06-11] MEDS: FOLIC ACID/VITAMIN B COMP W-C TABLET PO SCH (09:22)
[2019-06-11] MEDS: CARVEDILOL 6.25 MG TABLET PO SCH ×2 (09:22→21:06)
[2019-06-11] MEDS: TAMSULOSIN HCL 0.4MG SR CAPSULE PO SCH (09:22)
[2019-06-11] MEDS: PANTOPRAZOLE SODIUM 40 MG/VIAL IV SCH (09:22)
[2019-06-11] MEDS: DOCUSATE SODIUM 100MG CAPSULE PO SCH ×2 (09:23→18:06)
[2019-06-11] MEDS: LACTULOSE 20G/30ML UDC PO SCH (21:04)
[2019-06-11] MEDS: CEFTRIAXONE 2 G in DEXTROSE 5% WATER 50 ML IV SCH (22:26)
[2019-06-11] MEDS: INSULIN GLARGINE UD 100 UNITS/ML SYR SUBCUT SCH (22:28)
[2019-06-12] VITALS (10 sets, daily range): BP systolic 99–143; BP diastolic 35–81
[2019-06-12] MEDS: BLOOD SUGAR DIAGNOSTIC STRIP TEST SCH ×4 (07:31→22:00)
[2019-06-12] MEDS: MORPHINE SULFATE 2 MG/ML CPJ (NOT FOR IM USE) IV PRN (07:40)
[2019-06-12] MEDS: INSULIN LISPRO 100 UNITS/ML SUBCUT SCH ×4 (08:00→22:14)
[2019-06-12] MEDS: FOLIC ACID/VITAMIN B COMP W-C TABLET PO SCH (08:33)
[2019-06-12] MEDS: DOCUSATE SODIUM 100MG CAPSULE PO SCH ×2 (08:33→18:03)
[2019-06-12] MEDS: PANTOPRAZOLE SODIUM 40 MG/VIAL IV SCH (08:33)
[2019-06-12] MEDS: SEVELAMER CARBONATE 800 MG TABLET PO SCH ×3 (08:33→18:03)
[2019-06-12] MEDS: CARVEDILOL 6.25 MG TABLET PO SCH ×2 (08:34→22:02)
[2019-06-12] MEDS: TAMSULOSIN HCL 0.4MG SR CAPSULE PO SCH (08:34)
[2019-06-12] MEDS: INSULIN GLARGINE UD 100 UNITS/ML SYR SUBCUT SCH ×2 (10:00→22:14)
[2019-06-12] MEDS: ONDANSETRON HCL 4MG/2ML INJ IV PRN (13:05)
[2019-06-12] MEDS: EPOETIN ALFA 10000UNITS/ML VIAL SUBCUT SCH (21:00)
[2019-06-12] MEDS: CEFTRIAXONE 2 G in DEXTROSE 5% WATER 50 ML IV SCH (22:14)
[2019-06-13] VITALS (13 sets, daily range): BP systolic 94–140; BP diastolic 43–90
[2019-06-13] MEDS: BLOOD SUGAR DIAGNOSTIC STRIP TEST SCH ×4 (07:46→22:39)
[2019-06-13] MEDS: INSULIN LISPRO 100 UNITS/ML SUBCUT SCH ×4 (07:46→22:39)
[2019-06-13] MEDS: PANTOPRAZOLE SODIUM 40 MG/VIAL IV SCH (08:27)
[2019-06-13] MEDS: DOCUSATE SODIUM 100MG CAPSULE PO SCH ×2 (08:27→17:49)
[2019-06-13] MEDS: TAMSULOSIN HCL 0.4MG SR CAPSULE PO SCH (08:27)
[2019-06-13] MEDS: SEVELAMER CARBONATE 800 MG TABLET PO SCH ×3 (08:27→17:49)
[2019-06-13] MEDS: FOLIC ACID/VITAMIN B COMP W-C TABLET PO SCH (08:27)
[2019-06-13] MEDS: CARVEDILOL 6.25 MG TABLET PO SCH ×2 (08:28→22:39)
[2019-06-13] MEDS: INSULIN GLARGINE UD 100 UNITS/ML SYR SUBCUT SCH ×2 (09:37→22:43)
[2019-06-13] MEDS: CEFTRIAXONE 2 G in DEXTROSE 5% WATER 50 ML IV SCH (22:38)
[2019-06-14] VITALS (12 sets, daily range): BP systolic 88–152; BP diastolic 48–83
[2019-06-14] MEDS: MORPHINE SULFATE 2 MG/ML CPJ (NOT FOR IM USE) IV PRN ×2 (06:44→19:52)
[2019-06-14] MEDS: BLOOD SUGAR DIAGNOSTIC STRIP TEST SCH ×4 (06:55→22:20)
[2019-06-14] MEDS: INSULIN LISPRO 100 UNITS/ML SUBCUT SCH ×4 (07:21→22:25)
[2019-06-14] MEDS: SEVELAMER CARBONATE 800 MG TABLET PO SCH ×3 (08:56→17:31)
[2019-06-14] MEDS: TAMSULOSIN HCL 0.4MG SR CAPSULE PO SCH (08:57)
[2019-06-14] MEDS: FOLIC ACID/VITAMIN B COMP W-C TABLET PO SCH (08:57)
[2019-06-14] MEDS: PANTOPRAZOLE SODIUM 40 MG/VIAL IV SCH (08:57)
[2019-06-14] MEDS: DOCUSATE SODIUM 100MG CAPSULE PO SCH ×2 (08:57→17:31)
[2019-06-14] MEDS: CARVEDILOL 6.25 MG TABLET PO SCH ×2 (08:57→22:18)
[2019-06-14] MEDS: INSULIN GLARGINE UD 100 UNITS/ML SYR SUBCUT SCH ×2 (08:58→22:21)
[2019-06-14] MEDS: EPOETIN ALFA 10000UNITS/ML VIAL SUBCUT SCH (21:00)
[2019-06-15] VITALS (13 sets, daily range): BP systolic 122–176; BP diastolic 54–102
[2019-06-15] MEDS: MORPHINE SULFATE 2 MG/ML CPJ (NOT FOR IM USE) IV PRN (03:24)
[2019-06-15] MEDS: BLOOD SUGAR DIAGNOSTIC STRIP TEST SCH ×4 (07:04→21:30)
[2019-06-15] MEDS: INSULIN LISPRO 100 UNITS/ML SUBCUT SCH ×4 (08:00→21:38)
[2019-06-15] MEDS: TAMSULOSIN HCL 0.4MG SR CAPSULE PO SCH (08:35)
[2019-06-15] MEDS: SEVELAMER CARBONATE 800 MG TABLET PO SCH ×3 (08:35→17:27)
[2019-06-15] MEDS: DOCUSATE SODIUM 100MG CAPSULE PO SCH ×2 (08:35→17:27)
[2019-06-15] MEDS: PANTOPRAZOLE SODIUM 40 MG/VIAL IV SCH (08:35)
[2019-06-15] MEDS: CARVEDILOL 6.25 MG TABLET PO SCH ×2 (08:35→21:29)
[2019-06-15] MEDS: INSULIN GLARGINE UD 100 UNITS/ML SYR SUBCUT SCH ×2 (08:36→21:39)
[2019-06-15] MEDS: FOLIC ACID/VITAMIN B COMP W-C TABLET PO SCH (08:36)
[2019-06-15] MEDS: LOSARTAN POTASSIUM 50 MG TABLET PO SCH (13:34)
[2019-06-15] MEDS: AMLODIPINE 5MG TABLET PO SCH (21:29)
[2019-06-15] MEDS: HYDROCODONE/ACETAMINOPHEN 5/325MG TABLET PO PRN (21:30)
[2019-06-16] VITALS (12 sets, daily range): BP systolic 100–160; BP diastolic 46–88
[2019-06-16] MEDS: HYDROCODONE/ACETAMINOPHEN 5/325MG TABLET PO PRN ×2 (05:02→12:24)
[2019-06-16 06:11] LABS: BASOPHILS % 2.1 % (0.0-2.0); EOSINOPHILS % 6.3 % (0.0-5.0); HEMATOCRIT. 31.1 % (42.0-52.0); HEMOGLOBIN. 10.1 g/dL (14.0-18.0); LYMPHOCYTES % 13.8 % (20.0-50.0); MEAN CORPUSCULAR HEMOGLOBIN 27.9 pg (28.0-32.0); MEAN CORPUSCULAR VOLUME 85.9 fL (80.0-94.0); MEAN PLATELET VOLUME 6.8 fl (7.4-10.4); MONOCYTES % 8.4 % (2.0-8.0); NEUTROPHILS % 69.4 % (40.0-76.0); PLATELET 322 x1000/uL (130-400); RED BLOOD CELL COUNT 3.62 mill/uL (4.7-6.1); RED CELL DISTRIBUTION WIDTH 19.5 % (11.6-14.6)
[2019-06-16] MEDS: BLOOD SUGAR DIAGNOSTIC STRIP TEST SCH ×4 (07:30→21:00)
[2019-06-16] MEDS: INSULIN LISPRO 100 UNITS/ML SUBCUT SCH ×4 (08:00→22:32)
[2019-06-16] MEDS: DOCUSATE SODIUM 100MG CAPSULE PO SCH ×2 (08:27→17:24)
[2019-06-16] MEDS: PANTOPRAZOLE SODIUM 40 MG/VIAL IV SCH (08:27)
[2019-06-16] MEDS: FOLIC ACID/VITAMIN B COMP W-C TABLET PO SCH (08:27)
[2019-06-16] MEDS: SEVELAMER CARBONATE 800 MG TABLET PO SCH ×3 (08:28→18:24)
[2019-06-16] MEDS: TAMSULOSIN HCL 0.4MG SR CAPSULE PO SCH (08:28)
[2019-06-16] MEDS: CARVEDILOL 6.25 MG TABLET PO SCH ×2 (09:00→22:25)
[2019-06-16] MEDS: LOSARTAN POTASSIUM 50 MG TABLET PO SCH (09:00)
[2019-06-16] MEDS: AMLODIPINE 5MG TABLET PO SCH ×2 (09:00→22:25)
[2019-06-16] MEDS: INSULIN GLARGINE UD 100 UNITS/ML SYR SUBCUT SCH ×2 (10:29→22:32)
[2019-06-16] MEDS: DEXTROSE 50% WATER 50ML SYRINGE IV PRN (17:45)
[2019-06-16] MEDS: EPOETIN ALFA 10000UNITS/ML VIAL SUBCUT SCH (21:00)
[2019-06-16] MEDS: CEFTRIAXONE 2 G in DEXTROSE 5% WATER 50 ML IV SCH (22:19)
[2019-06-17] VITALS (8 sets, daily range): BP systolic 95–155; BP diastolic 45–94
[2019-06-17] MEDS: BLOOD SUGAR DIAGNOSTIC STRIP TEST SCH ×4 (07:30→20:27)
[2019-06-17] MEDS: INSULIN LISPRO 100 UNITS/ML SUBCUT SCH ×4 (08:00→20:26)
[2019-06-17 09:52] LABS: BASOPHILS % 2.1 % (0.0-2.0); EOSINOPHILS % 6.6 % (0.0-5.0); HEMATOCRIT. 27.7 % (42.0-52.0); HEMOGLOBIN. 8.9 g/dL (14.0-18.0); MEAN CORPUSCULAR HEMOGLOBIN 27.7 pg (28.0-32.0); MEAN PLATELET VOLUME 6.9 fl (7.4-10.4); MONOCYTES % 10.2 % (2.0-8.0); NEUTROPHILS % 67.1 % (40.0-76.0); PLATELET 256 x1000/uL (130-400); RED BLOOD CELL COUNT 3.22 mill/uL (4.7-6.1); RED CELL DISTRIBUTION WIDTH 19.4 % (11.6-14.6)
[2019-06-17] MEDS: SEVELAMER CARBONATE 800 MG TABLET PO SCH ×3 (10:06→17:30)
[2019-06-17] MEDS: TAMSULOSIN HCL 0.4MG SR CAPSULE PO SCH (10:07)
[2019-06-17] MEDS: AMLODIPINE 5MG TABLET PO SCH ×2 (10:07→20:28)
[2019-06-17] MEDS: CARVEDILOL 6.25 MG TABLET PO SCH ×2 (10:07→20:29)
[2019-06-17] MEDS: FOLIC ACID/VITAMIN B COMP W-C TABLET PO SCH (10:07)
[2019-06-17] MEDS: PANTOPRAZOLE SODIUM 40 MG/VIAL IV SCH (10:08)
[2019-06-17] MEDS: DOCUSATE SODIUM 100MG CAPSULE PO SCH ×2 (10:08→17:30)
[2019-06-17] MEDS: HYDROCODONE/ACETAMINOPHEN 5/325MG TABLET PO PRN ×2 (10:08→20:56)
[2019-06-17] MEDS: LOSARTAN POTASSIUM 50 MG TABLET PO SCH (10:09)
[2019-06-17] MEDS: CEFTRIAXONE 2 G in DEXTROSE 5% WATER 50 ML IV SCH (20:46)
[2019-06-17] MEDS: EPOETIN ALFA 10000UNITS/ML VIAL SUBCUT SCH (21:00)
[2019-06-18] VITALS (11 sets, daily range): BP systolic 97–146; BP diastolic 58–86
[2019-06-18 06:23] LABS: BASOPHILS % 2.1 % (0.0-2.0); EOSINOPHILS % 9.2 % (0.0-5.0); HEMATOCRIT. 26.5 % (42.0-52.0); HEMOGLOBIN. 8.8 g/dL (14.0-18.0); LYMPHOCYTES % 19.2 % (20.0-50.0); MEAN CORPUSCULAR HEMOGLOBIN 28.4 pg (28.0-32.0); MEAN CORPUSCULAR VOLUME 85.5 fL (80.0-94.0); NEUTROPHILS % 61.5 % (40.0-76.0); PLATELET 226 x1000/uL (130-400); RED CELL DISTRIBUTION WIDTH 18.7 % (11.6-14.6)
[2019-06-18] MEDS: BLOOD SUGAR DIAGNOSTIC STRIP TEST SCH ×4 (07:30→21:00)
[2019-06-18] MEDS: LOSARTAN POTASSIUM 50 MG TABLET PO SCH (08:56)
[2019-06-18] MEDS: SEVELAMER CARBONATE 800 MG TABLET PO SCH ×3 (08:56→18:44)
[2019-06-18] MEDS: DOCUSATE SODIUM 100MG CAPSULE PO SCH ×2 (08:56→17:00)
[2019-06-18] MEDS: FOLIC ACID/VITAMIN B COMP W-C TABLET PO SCH (08:56)
[2019-06-18] MEDS: TAMSULOSIN HCL 0.4MG SR CAPSULE PO SCH (08:56)
[2019-06-18] MEDS: AMLODIPINE 5MG TABLET PO SCH ×2 (08:56→21:11)
[2019-06-18] MEDS: CARVEDILOL 6.25 MG TABLET PO SCH ×2 (08:57→21:11)
[2019-06-18] MEDS: PANTOPRAZOLE SODIUM 40 MG/VIAL IV SCH (08:57)
[2019-06-18] MEDS: INSULIN LISPRO 100 UNITS/ML SUBCUT SCH ×4 (09:15→21:41)
[2019-06-18] MEDS: HYDROCODONE/ACETAMINOPHEN 5/325MG TABLET PO PRN ×2 (10:18→18:45)
[2019-06-18] MEDS ORDERED: SODIUM POLYSTYRENE SULFONATE 15 G/60 ML BOT PO NR (11:30)
[2019-06-19] VITALS (12 sets, daily range): BP systolic 98–141; BP diastolic 30–70
[2019-06-19] MEDS: CEFTRIAXONE 2 G in DEXTROSE 5% WATER 50 ML IV SCH ×2 (00:19→20:09)
[2019-06-19] MEDS: EPOETIN ALFA 10000UNITS/ML VIAL SUBCUT SCH (00:44)
[2019-06-19] MEDS: BLOOD SUGAR DIAGNOSTIC STRIP TEST SCH ×4 (08:09→20:21)
[2019-06-19] MEDS: SEVELAMER CARBONATE 800 MG TABLET PO SCH ×3 (08:09→17:14)
[2019-06-19] MEDS: PANTOPRAZOLE SODIUM 40 MG/VIAL IV SCH (08:10)
[2019-06-19] MEDS: TAMSULOSIN HCL 0.4MG SR CAPSULE PO SCH (08:10)
[2019-06-19] MEDS: FOLIC ACID/VITAMIN B COMP W-C TABLET PO SCH (08:10)
[2019-06-19] MEDS: DOCUSATE SODIUM 100MG CAPSULE PO SCH (08:17)
[2019-06-19] MEDS: INSULIN LISPRO 100 UNITS/ML SUBCUT SCH ×4 (08:17→21:31)
[2019-06-19] MEDS: CARVEDILOL 6.25 MG TABLET PO SCH ×2 (08:18→20:10)
[2019-06-19] MEDS: AMLODIPINE 5MG TABLET PO SCH ×2 (08:18→20:10)
[2019-06-19] MEDS: LOSARTAN POTASSIUM 50 MG TABLET PO SCH (08:18)
[2019-06-19] MEDS: HYDROCODONE/ACETAMINOPHEN 5/325MG TABLET PO PRN (11:23)
[2019-06-19] MEDS: DOCUSATE SODIUM SUGAR FREE 100MG/10ML UDC PO SCH (17:14)
[2019-06-20] VITALS (12 sets, daily range): BP systolic 91–147; BP diastolic 33–90
[2019-06-20] MEDS: EPOETIN ALFA 10000UNITS/ML VIAL SUBCUT SCH (00:19)
[2019-06-20] MEDS: HYDROCODONE/ACETAMINOPHEN 5/325MG TABLET PO PRN ×2 (01:55→12:06)
[2019-06-20] MEDS: BLOOD SUGAR DIAGNOSTIC STRIP TEST SCH ×4 (07:30→21:02)
[2019-06-20] MEDS: SEVELAMER CARBONATE 800 MG TABLET PO SCH ×3 (08:00→18:17)
[2019-06-20] MEDS: AMLODIPINE 5MG TABLET PO SCH ×2 (09:00→21:02)
[2019-06-20] MEDS: LOSARTAN POTASSIUM 50 MG TABLET PO SCH (09:00)
[2019-06-20] MEDS: CARVEDILOL 6.25 MG TABLET PO SCH ×2 (09:00→21:02)
[2019-06-20] MEDS: PANTOPRAZOLE SODIUM 40 MG/VIAL IV SCH (09:14)
[2019-06-20] MEDS: FOLIC ACID/VITAMIN B COMP W-C TABLET PO SCH (09:14)
[2019-06-20] MEDS: TAMSULOSIN HCL 0.4MG SR CAPSULE PO SCH (09:14)
[2019-06-20] MEDS: INSULIN LISPRO 100 UNITS/ML SUBCUT SCH ×5 (09:18→21:19)
[2019-06-20] MEDS: DOCUSATE SODIUM SUGAR FREE 100MG/10ML UDC PO SCH ×2 (09:39→18:16)
[2019-06-20 20:05] LABS: HEMOGLOBIN 9.7 g/dL (14.0-18.0); MEAN CORPUSCULAR HEMOGLOBIN 27.6 pg (28.0-32.0); MEAN CORPUSCULAR VOLUME 85.4 fL (80.0-94.0); PLATELET 202 x1000/uL (130-400); RED BLOOD CELL COUNT 3.51 mill/uL (4.7-6.1); RED CELL DISTRIBUTION WIDTH 18.6 % (11.6-14.6)
[2019-06-21] VITALS (13 sets, daily range): BP systolic 100–144; BP diastolic 33–90
[2019-06-21] MEDS: EPOETIN ALFA 10000UNITS/ML VIAL SUBCUT SCH (01:17)
[2019-06-21] MEDS: BLOOD SUGAR DIAGNOSTIC STRIP TEST SCH ×4 (08:46→21:00)
[2019-06-21] MEDS: INSULIN LISPRO 100 UNITS/ML SUBCUT SCH ×3 (09:08→18:20)
[2019-06-21] MEDS: PANTOPRAZOLE SODIUM 40 MG/VIAL IV SCH (09:09)
[2019-06-21] MEDS: FOLIC ACID/VITAMIN B COMP W-C TABLET PO SCH (09:09)
[2019-06-21] MEDS: CARVEDILOL 6.25 MG TABLET PO SCH ×2 (09:17→21:00)
[2019-06-21] MEDS: AMLODIPINE 5MG TABLET PO SCH ×2 (09:17→21:00)
[2019-06-21] MEDS: TAMSULOSIN HCL 0.4MG SR CAPSULE PO SCH (09:21)
[2019-06-21] MEDS: SEVELAMER CARBONATE 800 MG TABLET PO SCH ×3 (09:21→18:21)
[2019-06-21] MEDS: DOCUSATE SODIUM SUGAR FREE 100MG/10ML UDC PO SCH ×2 (09:22→18:15)
[2019-06-21] MEDS: LOSARTAN POTASSIUM 50 MG TABLET PO SCH (09:39)
[2019-06-21 09:53] LABS: PHOSPHORUS 4.5 mg/dL (2.5-4.9)
[2019-06-21] MEDS ORDERED: HYDROCODONE/ACETAMINOPHEN 5/325MG TABLET PO PRN ×2 (12:45→16:45)
[2019-06-22] VITALS (10 sets, daily range): BP systolic 96–140; BP diastolic 42–82
[2019-06-22 06:09] LABS: BASOPHILS % 0.8 % (0.0-2.0); EOSINOPHILS % 8.9 % (0.0-5.0); HEMATOCRIT. 30.4 % (42.0-52.0); HEMOGLOBIN. 9.8 g/dL (14.0-18.0); LYMPHOCYTES % 14.2 % (20.0-50.0); MEAN CORPUSCULAR HEMOGLOBIN 27.8 pg (28.0-32.0); MEAN CORPUSCULAR VOLUME 85.9 fL (80.0-94.0); MEAN PLATELET VOLUME 7.6 fl (7.4-10.4); MONOCYTES % 6.8 % (2.0-8.0); NEUTROPHILS % 69.3 % (40.0-76.0); PLATELET 174 x1000/uL (130-400); RED BLOOD CELL COUNT 3.53 mill/uL (4.7-6.1); RED CELL DISTRIBUTION WIDTH 17.9 % (11.6-14.6)
[2019-06-22] MEDS: BLOOD SUGAR DIAGNOSTIC STRIP TEST SCH ×4 (07:33→20:40)
[2019-06-22] MEDS: INSULIN LISPRO 100 UNITS/ML SUBCUT SCH ×4 (08:31→20:46)
[2019-06-22] MEDS: AMLODIPINE 5MG TABLET PO SCH ×2 (09:00→20:40)
[2019-06-22] MEDS: LOSARTAN POTASSIUM 50 MG TABLET PO SCH (09:00)
[2019-06-22] MEDS: FOLIC ACID/VITAMIN B COMP W-C TABLET PO SCH (09:14)
[2019-06-22] MEDS: CARVEDILOL 6.25 MG TABLET PO SCH ×2 (09:14→20:40)
[2019-06-22] MEDS: TAMSULOSIN HCL 0.4MG SR CAPSULE PO SCH (09:14)
[2019-06-22] MEDS: DOCUSATE SODIUM SUGAR FREE 100MG/10ML UDC PO SCH ×2 (09:17→17:06)
[2019-06-22] MEDS: PANTOPRAZOLE SODIUM 40 MG/VIAL IV SCH (09:17)
[2019-06-22] MEDS: SEVELAMER CARBONATE 800 MG TABLET PO SCH ×3 (09:17→18:10)
[2019-06-22] MEDS ORDERED: LACTULOSE 20G/30ML UDC PO NR (12:30)
[2019-06-23] VITALS: BP 110/83
[2019-06-23 04:00] VITALS: BP 112/52
[2019-06-23 08:00] VITALS: BP 111/45
[2019-06-23] MEDS: INSULIN LISPRO 100 UNITS/ML SUBCUT SCH ×4 (08:00→20:48)
[2019-06-23] MEDS: BLOOD SUGAR DIAGNOSTIC STRIP TEST SCH ×4 (08:01→21:00)
[2019-06-23 08:28] LABS: HEMATOCRIT. 27.5 % (42.0-52.0); MEAN CORPUSCULAR VOLUME 85.2 fL (80.0-94.0); MEAN PLATELET VOLUME 7.7 fl (7.4-10.4); PLATELET 166 x1000/uL (130-400); RED BLOOD CELL COUNT 3.22 mill/uL (4.7-6.1); RED CELL DISTRIBUTION WIDTH 17.9 % (11.6-14.6)
[2019-06-23] MEDS: LOSARTAN POTASSIUM 50 MG TABLET PO SCH (08:41)
[2019-06-23] MEDS: AMLODIPINE 5MG TABLET PO SCH ×2 (08:41→21:55)
[2019-06-23] MEDS: CARVEDILOL 6.25 MG TABLET PO SCH ×2 (08:41→21:56)
[2019-06-23] MEDS: SEVELAMER CARBONATE 800 MG TABLET PO SCH ×3 (08:47→18:18)
[2019-06-23] MEDS: DOCUSATE SODIUM SUGAR FREE 100MG/10ML UDC PO SCH ×2 (08:50→17:00)
[2019-06-23] MEDS ORDERED: POLYETHYLENE GLYCOL 3350 (17GM) 1 DOSE PACK PO NR (09:45)
[2019-06-23] MEDS ORDERED: BISACODYL 10MG SUPP PR NR (10:00)
[2019-06-23] MEDS ORDERED: NA PHOS,M-B/NA PHOS,DI-BA ENEMA 118ML PR NR (11:15)
[2019-06-23 12:00] VITALS: BP 142/74
[2019-06-23] MEDS: TAMSULOSIN HCL 0.4MG SR CAPSULE PO SCH (13:09)
[2019-06-23] MEDS: FOLIC ACID/VITAMIN B COMP W-C TABLET PO SCH (13:10)
[2019-06-23] MEDS: PANTOPRAZOLE SODIUM 40 MG/VIAL IV SCH (13:11)
[2019-06-23 13:25] LABS: PLATELET ESTIMATE NORMAL
[2019-06-23] MEDS: ACETAMINOPHEN 325MG TABLET PO PRN (14:50)
[2019-06-23 16:00] VITALS: BP 127/60
[2019-06-23] MEDS: EPOETIN ALFA 10000UNITS/ML VIAL SUBCUT SCH (22:03)
[2019-06-24 08:00] VITALS: BP 135/103
[2019-06-24] MEDS: INSULIN LISPRO 100 UNITS/ML SUBCUT SCH ×2 (08:00→12:17)
[2019-06-24] MEDS: BLOOD SUGAR DIAGNOSTIC STRIP TEST SCH ×2 (08:53→11:50)
[2019-06-24] MEDS ORDERED: POLYETHYLENE GLYCOL 3350 (17GM) 1 DOSE PACK PO PRN (09:00)
[2019-06-24] MEDS: SEVELAMER CARBONATE 800 MG TABLET PO SCH (09:19)
[2019-06-24] MEDS: PANTOPRAZOLE SODIUM 40 MG/VIAL IV SCH (09:19)
[2019-06-24] MEDS: TAMSULOSIN HCL 0.4MG SR CAPSULE PO SCH (09:20)
[2019-06-24] MEDS: AMLODIPINE 5MG TABLET PO SCH (09:20)
[2019-06-24] MEDS: CARVEDILOL 6.25 MG TABLET PO SCH (09:21)
[2019-06-24 10:00] VITALS: BP 119/45
[2019-06-24] MEDS: DOCUSATE SODIUM SUGAR FREE 100MG/10ML UDC PO SCH (10:03)
[2019-06-24] MEDS: LOSARTAN POTASSIUM 50 MG TABLET PO SCH (10:03)
[2019-06-24] MEDS: FOLIC ACID/VITAMIN B COMP W-C TABLET PO SCH (10:04)
[2019-06-24 12:00] VITALS: BP 120/86
[2019-06-24 12:01] VITALS: BP 120/86
== END 2019-06-24 17:15 | DRG 710 ==
LOC: ER 22:33 → CANRESERV 05-30 01:24 → ENRESERV 05-30 01:24 → CVICU 05-30 02:11 → EDBEDREQSVC 05-30 02:13 → EDBEDREQTM 05-30 02:13 → ENRESERV 05-30 07:32 → 5EST 05-30 13:02
PROVIDERS: ADMIT Internal Medicine; ATTEND Internal Medicine
PROC: 02HV33Z Insertion of Infusion Device into Superior Vena Cava, Percutaneous Approach (ICD-10-PCS; 2019-05-30)
PROC: B548ZZA Ultrasonography of Superior Vena Cava, Guidance (ICD-10-PCS; 2019-05-30)
PROC: 0J9R0ZZ Drainage of Left Foot Subcutaneous Tissue and Fascia, Open Approach (ICD-10-PCS; principal; 2019-06-04)
PROC: 5A1D70Z Performance of Urinary Filtration, Intermittent, Less than 6 Hours Per Day (ICD-10-PCS; 2019-06-04)
PROC: 30233N1 Transfusion of Nonautologous Red Blood Cells into Peripheral Vein, Percutaneous Approach (ICD-10-PCS; 2019-06-06)
PROC: 5A1D70Z Performance of Urinary Filtration, Intermittent, Less than 6 Hours Per Day (ICD-10-PCS; 2019-06-06)
PROC: 5A1D70Z Performance of Urinary Filtration, Intermittent, Less than 6 Hours Per Day (ICD-10-PCS; 2019-06-08)
PROC: 5A1D70Z Performance of Urinary Filtration, Intermittent, Less than 6 Hours Per Day (ICD-10-PCS; 2019-06-11)
PROC: 0LBW0ZZ Excision of Left Foot Tendon, Open Approach (ICD-10-PCS; 2019-06-12)
PROC: 5A1D70Z Performance of Urinary Filtration, Intermittent, Less than 6 Hours Per Day (ICD-10-PCS; 2019-06-13)
PROC: 5A1D70Z Performance of Urinary Filtration, Intermittent, Less than 6 Hours Per Day (ICD-10-PCS; 2019-06-15)
PROC: 5A1D70Z Performance of Urinary Filtration, Intermittent, Less than 6 Hours Per Day (ICD-10-PCS; 2019-06-17)
PROC: 5A1D70Z Performance of Urinary Filtration, Intermittent, Less than 6 Hours Per Day (ICD-10-PCS; 2019-06-19)
PROC: 5A1D70Z Performance of Urinary Filtration, Intermittent, Less than 6 Hours Per Day (ICD-10-PCS; 2019-06-22)
DX: A41.9 Sepsis, unspecified organism (principal); R65.21 Severe sepsis with septic shock; G93.41 Metabolic encephalopathy; E43 Unspecified severe protein-calorie malnutrition; D61.818 Other pancytopenia; A48.0 Gas gangrene; I13.2 Hypertensive heart and chronic kidney disease with heart failure and with stage 5 chronic kidney disease, or end stage renal disease; K31.84 Gastroparesis; E11.43 Type 2 diabetes mellitus with diabetic autonomic (poly)neuropathy; E11.22 Type 2 diabetes mellitus with diabetic chronic kidney disease; E11.51 Type 2 diabetes mellitus with diabetic peripheral angiopathy without gangrene; E11.52 Type 2 diabetes mellitus with diabetic peripheral angiopathy with gangrene; E87.2 Acidosis; E11.65 Type 2 diabetes mellitus with hyperglycemia; I42.9 Cardiomyopathy, unspecified; I50.43 Acute on chronic combined systolic (congestive) and diastolic (congestive) heart failure; E87.1 Hypo-osmolality and hyponatremia; E87.5 Hyperkalemia; E87.8 Other disorders of electrolyte and fluid balance, not elsewhere classified; L02.612 Cutaneous abscess of left foot; L97.529 Non-pressure chronic ulcer of other part of left foot with unspecified severity; D63.1 Anemia in chronic kidney disease; E11.621 Type 2 diabetes mellitus with foot ulcer; K59.00 Constipation, unspecified; L03.116 Cellulitis of left lower limb; M85.80 Other specified disorders of bone density and structure, unspecified site; N25.81 Secondary hyperparathyroidism of renal origin; N18.6 End stage renal disease; Z79.899 Other long term (current) drug therapy; Z79.82 Long term (current) use of aspirin; Z99.2 Dependence on renal dialysis; Z90.89 Acquired absence of other organs; Z79.4 Long term (current) use of insulin; Z68.22 Body mass index [BMI] 22.0-22.9, adult; Z89.9 Acquired absence of limb, unspecified
CPT/HCPCS: 36415; 70551; 71045; 73630; 73721; 76937; 80048; 80053; 80202; 81003; 82010; 82140; 82728; 82962; 83540; 83550; 83605; 83880; 84100; 84145; 84484; 85025; 85027; 86850; 86900; 86920; 87070; 87075; 87077; 87186; 88304; 92610; 93005; 93923; 93970; 96365; 97022; 97162; 97164; 97530; 99291; C1725; C1769; C9113; J0696; J0885; J1100; J1200; J1815; J2250; J2270; J2405; J2543; J3010; J3301; J3370; J3490; J7030; J7040; J7060; P9016; A4315

== ENCOUNTER 2019-07-14 11:55 | Emergency (ER) | payer MEDICAID ==
[~2019-07-14] VITALS: Ht 162.6 cm; Wt 75.0 kg
[2019-07-14] MEDS ORDERED: MORPHINE SULFATE 4 MG/ML CPJ (NOT FOR IM USE) IV STA (13:07)
[2019-07-14] MEDS ORDERED: ONDANSETRON HCL 4MG/2ML INJ IV STA (13:07)
[2019-07-14 13:16] LABS: BASOPHILS % 1.1 % (0.0-2.0); EOSINOPHILS % 8.9 % (0.0-5.0); HEMATOCRIT. 32.2 % (42.0-52.0); HEMOGLOBIN. 10.6 g/dL (14.0-18.0); LYMPHOCYTES % 18.5 % (20.0-50.0); MEAN CORPUSCULAR HEMOGLOBIN 29.3 pg (28.0-32.0); MEAN CORPUSCULAR VOLUME 89.1 fL (80.0-94.0); MEAN PLATELET VOLUME 7.9 fl (7.4-10.4); NEUTROPHILS % 64.5 % (40.0-76.0); PLATELET 137 x1000/uL (130-400); RED BLOOD CELL COUNT 3.61 mill/uL (4.7-6.1); RED CELL DISTRIBUTION WIDTH 19.6 % (11.6-14.6)
[2019-07-14 13:24] LABS: INR 1.1; PROTHROMBIN TIME 11.4 sec (9.6-11.0)
[2019-07-14 13:30] LABS: CHLORIDE 98 mEq/L (98-107)
[2019-07-14 13:35] LABS: ETHANOL BLOOD < 10 mg/dL
[2019-07-14] MEDS ORDERED: PIPERACILLIN/TAZ 3.375G PREMIX 50 ML IV ONE (16:00)
[2019-07-14] MEDS ORDERED: MORPHINE SULFATE 4 MG/ML CPJ (NOT FOR IM USE) IV ONE (18:00)
[2019-07-14] MEDS ORDERED: CLONIDINE 0.1MG TABLET PO ONE (18:45)
[2019-07-14 20:39] VITALS: BP 133/62
== END 2019-07-14 22:54 | disposition home or self-care (01) ==
LOC: ER 12:14 → EDBEDREQ 16:38 → EDBEDREQSVC 16:38 → EDBEDREQ 16:41 → EDBEDREQTM 16:41 → CANBEDREQ 18:57 → ER 22:54
DX: L03.116 Cellulitis of left lower limb (principal); R51 Headache; R06.00 Dyspnea, unspecified; I44.4 Left anterior fascicular block; I12.0 Hypertensive chronic kidney disease with stage 5 chronic kidney disease or end stage renal disease; N18.6 End stage renal disease; Z99.2 Dependence on renal dialysis; Z89.422 Acquired absence of other left toe(s); Z89.421 Acquired absence of other right toe(s)
CPT/HCPCS: 36415; 70450; 71045; 80053; 80320; 83605; 83690; 83880; 84145; 84484; 85025; 85610; 87040; 87804; 93005; 96365; 96375; 99284; J2270; J2405; J2543; G0480

== ENCOUNTER 2019-10-23 09:30 | Inpatient (IN) | payer MEDICAID ==
[~2019-10-23] VITALS: Ht 170.2 cm; Wt 71.2 kg
[2019-10-23] MEDS ORDERED: PIPERACILLIN/TAZOBACTAM 3.375GM/50ML PREMIX IV ONE (10:30)
[2019-10-23] MEDS ORDERED: VANCOMYCIN 1 G PREMIX 200 ML IV SCH (10:30)
[2019-10-23] MEDS ORDERED: PIPERACILLIN/TAZ 3.375G PREMIX 50 ML IV NR (10:30)
[2019-10-23] MEDS ORDERED: ONDANSETRON HCL 4MG/2ML INJ IV ONE (11:30)
[2019-10-23 11:35] LABS: BASOPHILS % 1.5 % (0.0-2.0); EOSINOPHILS % 10.2 % (0.0-5.0); HEMATOCRIT. 37.3 % (42.0-52.0); HEMOGLOBIN. 11.9 g/dL (14.0-18.0); LYMPHOCYTES % 12.8 % (20.0-50.0); MEAN CORPUSCULAR HEMOGLOBIN 26.9 pg (28.0-32.0); MEAN CORPUSCULAR VOLUME 84.7 fL (80.0-94.0); MONOCYTES % 9.6 % (2.0-8.0); NEUTROPHILS % 65.9 % (40.0-76.0); PLATELET 154 x1000/uL (130-400); RED CELL DISTRIBUTION WIDTH 21.3 % (11.6-14.6)
[2019-10-23 11:41] LABS: CHLORIDE 99 mEq/L (98-107); INR 1.1; PROTHROMBIN TIME 12.1 sec (9.6-11.0)
[2019-10-23 11:52] LABS: CLARITY URINE TURBID (CLEAR); COLOR URINE YELLOW (YELLOW); KETONES URINE NEGATIVE (NEGATIVE); LEUKOCYTE ESTERASE URINE 3+ (NEGATIVE); NITRITE URINE NEGATIVE (NEGATIVE); OCCULT BLOOD URINE 3+ (NEGATIVE); PH URINE 7.5 (4.5-8.0); PROTEIN URINE 2+ (NEGATIVE); UROBILINOGEN URINE 0.2 E.U./dL (0.2-1.0)
[2019-10-23] MEDS ORDERED: MORPHINE SULFATE 4 MG/ML CPJ (NOT FOR IM USE) IV NR (13:00)
[2019-10-23] MEDS ORDERED: CLONIDINE 0.1MG TABLET PO PRN (13:00)
[2019-10-23] MEDS ORDERED: ONDANSETRON HCL 4MG/2ML INJ IV NR (13:00)
[2019-10-23 13:32] LABS: PHOSPHORUS 6.8 mg/dL (2.5-4.9)
[2019-10-23 16:14] VITALS: BP 113/64
[2019-10-23] MEDS: MORPHINE SULFATE 2 MG/ML CPJ (NOT FOR IM USE) IV PRN ×3 (16:39→21:40)
[2019-10-23] MEDS: SEVELAMER CARBONATE 800 MG TABLET PO SCH (17:34)
[2019-10-23] MEDS ORDERED: PIPERACILLIN/TAZ 3.375G PREMIX 50 ML IV SCH (18:00)
[2019-10-23] MEDS ORDERED: VANCOMYCIN 500 MG PREMIX 100 ML IV NR (18:00)
[2019-10-23 20:00] VITALS: BP 107/46
[2019-10-23] MEDS: PIPERACILLIN/TAZOBACTAM 2.25 G in DEXTROSE 5% WATER 50 ML IV SCH (20:33)
[2019-10-23] MEDS: BLOOD SUGAR DIAGNOSTIC STRIP TEST SCH (20:45)
[2019-10-23] MEDS: INSULIN LISPRO 100 UNITS/ML SUBCUT SCH (20:46)
[2019-10-24] VITALS: BP 106/53
[2019-10-24 04:00] VITALS: BP 103/70
[2019-10-24] MEDS: PIPERACILLIN/TAZOBACTAM 2.25 G in DEXTROSE 5% WATER 50 ML IV SCH ×3 (04:04→21:13)
[2019-10-24] MEDS: BLOOD SUGAR DIAGNOSTIC STRIP TEST SCH ×4 (06:30→21:29)
[2019-10-24] MEDS: INSULIN LISPRO 100 UNITS/ML SUBCUT SCH ×4 (06:31→21:28)
[2019-10-24 06:47] LABS: HEMATOCRIT. 37.5 % (42.0-52.0); HEMOGLOBIN. 11.7 g/dL (14.0-18.0); MEAN CORPUSCULAR HEMOGLOBIN 26.7 pg (28.0-32.0); MEAN CORPUSCULAR VOLUME 85.4 fL (80.0-94.0); MEAN PLATELET VOLUME 8.3 fl (7.4-10.4); PLATELET 144 x1000/uL (130-400); RED BLOOD CELL COUNT 4.39 mill/uL (4.7-6.1); RED CELL DISTRIBUTION WIDTH 21.6 % (11.6-14.6)
[2019-10-24 07:23] LABS: CHLORIDE 98 mEq/L (98-107)
[2019-10-24 07:37] LABS: LDL CHOLESTEROL 50 mg/dL (5-100)
[2019-10-24 07:39] LABS: HDL CHOLESTEROL 44 mg/dL (40-59)
[2019-10-24 08:00] VITALS: BP 134/73
[2019-10-24] MEDS: SEVELAMER CARBONATE 800 MG TABLET PO SCH ×2 (09:22→17:41)
[2019-10-24] MEDS: FOLIC ACID/VITAMIN B COMP W-C TABLET PO SCH (09:22)
[2019-10-24] MEDS: ONDANSETRON HCL 4MG/2ML INJ IV PRN (09:22)
[2019-10-24 10:59] LABS: PLATELET ESTIMATE NORMAL
[2019-10-24 12:00] VITALS: BP 130/73
[2019-10-24] MEDS ORDERED: POLYVINYL ALCOHOL OPHTH DROPS 15ML BOTHEYE PRN (14:45)
[2019-10-24 16:00] VITALS: BP 129/73
[2019-10-24] MEDS: DOCUSATE SODIUM 100MG CAPSULE PO SCH (17:41)
[2019-10-24 20:00] VITALS: BP 126/61
[2019-10-24] MEDS: CARVEDILOL 3.125 MG TABLET PO SCH (21:12)
[2019-10-24] MEDS: BRIMONIDINE 0.2% OPHTH DROPS 5ML BOTHEYE SCH (21:15)
[2019-10-24] MEDS: INSULIN GLARGINE UD 100 UNITS/ML SYR SUBCUT SCH (21:27)
[2019-10-25] VITALS: BP 134/65
[2019-10-25] MEDS: PIPERACILLIN/TAZOBACTAM 2.25 G in DEXTROSE 5% WATER 50 ML IV SCH ×2 (03:19→12:27)
[2019-10-25 04:00] VITALS: BP 125/64
[2019-10-25] MEDS: DIPHENHYDRAMINE 50MG/ML VIAL IV PRN (04:08)
[2019-10-25] MEDS: BRIMONIDINE 0.2% OPHTH DROPS 5ML BOTHEYE SCH ×3 (06:10→21:40)
[2019-10-25] MEDS: BLOOD SUGAR DIAGNOSTIC STRIP TEST SCH ×4 (06:34→21:38)
[2019-10-25] MEDS: INSULIN LISPRO 100 UNITS/ML SUBCUT SCH ×4 (07:50→21:00)
[2019-10-25 07:56] VITALS: BP 124/64
[2019-10-25] MEDS: SEVELAMER CARBONATE 800 MG TABLET PO SCH ×4 (08:28→16:59)
[2019-10-25] MEDS: FOLIC ACID/VITAMIN B COMP W-C TABLET PO SCH (08:28)
[2019-10-25] MEDS: DOCUSATE SODIUM 100MG CAPSULE PO SCH ×2 (08:28→16:11)
[2019-10-25] MEDS: CARVEDILOL 3.125 MG TABLET PO SCH ×2 (08:29→21:39)
[2019-10-25] MEDS ORDERED: CLOPIDOGREL 75MG TABLET PO SCH (09:00)
[2019-10-25] MEDS ORDERED: ASPIRIN 81MG EC TABLET PO SCH (09:00)
[2019-10-25] MEDS: MORPHINE SULFATE 2 MG/ML CPJ (NOT FOR IM USE) IV PRN ×2 (11:01→16:15)
[2019-10-25 12:00] VITALS: BP 130/66
[2019-10-25 16:00] VITALS: BP 136/74
[2019-10-25] MEDS: CEFTRIAXONE 1 G PREMIX 50 ML IV SCH (17:30)
[2019-10-25 20:00] VITALS: BP 101/62
[2019-10-25] MEDS: INSULIN GLARGINE UD 100 UNITS/ML SYR SUBCUT SCH (21:49)
[2019-10-26] VITALS: BP 133/71
[2019-10-26] MEDS: MORPHINE SULFATE 2 MG/ML CPJ (NOT FOR IM USE) IV PRN ×3 (03:07→21:42)
[2019-10-26 04:00] VITALS: BP 115/58
[2019-10-26 05:55] LABS: BASOPHILS % 1.4 % (0.0-2.0); EOSINOPHILS % 10.8 % (0.0-5.0); HEMATOCRIT. 35.1 % (42.0-52.0); HEMOGLOBIN. 11.2 g/dL (14.0-18.0); MEAN CORPUSCULAR HEMOGLOBIN 26.9 pg (28.0-32.0); MEAN CORPUSCULAR VOLUME 84.5 fL (80.0-94.0); MEAN PLATELET VOLUME 8.5 fl (7.4-10.4); NEUTROPHILS % 67.8 % (40.0-76.0); PLATELET 123 x1000/uL (130-400); RED BLOOD CELL COUNT 4.15 mill/uL (4.7-6.1); RED CELL DISTRIBUTION WIDTH 21.7 % (11.6-14.6)
[2019-10-26] MEDS: BLOOD SUGAR DIAGNOSTIC STRIP TEST SCH ×4 (06:44→21:31)
[2019-10-26] MEDS: BRIMONIDINE 0.2% OPHTH DROPS 5ML BOTHEYE SCH ×3 (06:44→21:29)
[2019-10-26] MEDS: INSULIN LISPRO 100 UNITS/ML SUBCUT SCH ×4 (06:57→21:28)
[2019-10-26 08:00] VITALS: BP 118/62
[2019-10-26] MEDS: SEVELAMER CARBONATE 800 MG TABLET PO SCH ×4 (08:03→17:19)
[2019-10-26] MEDS: DOCUSATE SODIUM 100MG CAPSULE PO SCH ×2 (09:30→17:16)
[2019-10-26] MEDS: FOLIC ACID/VITAMIN B COMP W-C TABLET PO SCH (09:30)
[2019-10-26] MEDS: CARVEDILOL 3.125 MG TABLET PO SCH ×2 (09:31→21:30)
[2019-10-26 12:00] VITALS: BP 134/69
[2019-10-26] MEDS ORDERED: VANCOMYCIN 750 MG PREMIX 150 ML IV NR (12:00)
[2019-10-26 16:00] VITALS: BP 119/62
[2019-10-26] MEDS: CEFTRIAXONE 1 G PREMIX 50 ML IV SCH (17:17)
[2019-10-26 20:00] VITALS: BP 130/67
[2019-10-26] MEDS: INSULIN GLARGINE UD 100 UNITS/ML SYR SUBCUT SCH (21:26)
[2019-10-27] VITALS: BP 143/71
[2019-10-27] MEDS: MORPHINE SULFATE 2 MG/ML CPJ (NOT FOR IM USE) IV PRN (02:26)
[2019-10-27 04:00] VITALS: BP 119/62
[2019-10-27] MEDS: BRIMONIDINE 0.2% OPHTH DROPS 5ML BOTHEYE SCH ×3 (06:25→21:07)
[2019-10-27] MEDS: DEXTROSE 50% WATER 50ML SYRINGE IV PRN (07:07)
[2019-10-27] MEDS: BLOOD SUGAR DIAGNOSTIC STRIP TEST SCH ×4 (07:20→21:20)
[2019-10-27] MEDS: INSULIN LISPRO 100 UNITS/ML SUBCUT SCH ×4 (07:50→21:23)
[2019-10-27] MEDS: FOLIC ACID/VITAMIN B COMP W-C TABLET PO SCH (08:24)
[2019-10-27] MEDS: SEVELAMER CARBONATE 800 MG TABLET PO SCH ×2 (08:25→17:21)
[2019-10-27] MEDS: DOCUSATE SODIUM 100MG CAPSULE PO SCH ×2 (08:25→17:21)
[2019-10-27 08:26] VITALS: BP 138/71
[2019-10-27] MEDS: CARVEDILOL 3.125 MG TABLET PO SCH ×2 (08:26→21:06)
[2019-10-27] MEDS: DIPHENHYDRAMINE 50MG/ML VIAL IV PRN (08:46)
[2019-10-27 11:34] VITALS: BP 130/76
[2019-10-27 16:12] VITALS: BP 150/74
[2019-10-27] MEDS: CEFTRIAXONE 1 G PREMIX 50 ML IV SCH (17:21)
[2019-10-27 20:00] VITALS: BP 139/72
[2019-10-27] MEDS: INSULIN GLARGINE UD 100 UNITS/ML SYR SUBCUT SCH (22:21)
[2019-10-28] VITALS: BP 141/70
[2019-10-28 04:00] VITALS: BP 140/66
[2019-10-28] MEDS: BRIMONIDINE 0.2% OPHTH DROPS 5ML BOTHEYE SCH ×3 (05:33→21:27)
[2019-10-28] MEDS: BLOOD SUGAR DIAGNOSTIC STRIP TEST SCH ×4 (06:24→21:27)
[2019-10-28] MEDS: INSULIN LISPRO 100 UNITS/ML SUBCUT SCH ×4 (07:50→21:37)
[2019-10-28 08:00] VITALS: BP_SYST 116; BP_SYST 144; BP_DIAS 72; BP_DIAS 75
[2019-10-28] MEDS: SEVELAMER CARBONATE 800 MG TABLET PO SCH ×3 (08:45→18:05)
[2019-10-28] MEDS: DOCUSATE SODIUM 100MG CAPSULE PO SCH ×2 (08:45→18:05)
[2019-10-28] MEDS: FOLIC ACID/VITAMIN B COMP W-C TABLET PO SCH (08:45)
[2019-10-28] MEDS: CARVEDILOL 3.125 MG TABLET PO SCH ×2 (08:46→21:26)
[2019-10-28] MEDS: MORPHINE SULFATE 2 MG/ML CPJ (NOT FOR IM USE) IV PRN ×2 (09:00→23:29)
[2019-10-28 12:00] VITALS: BP 142/76
[2019-10-28 16:00] VITALS: BP 146/72
[2019-10-28] MEDS: CEFTRIAXONE 1 G PREMIX 50 ML IV SCH (18:20)
[2019-10-28 20:00] VITALS: BP 154/75
[2019-10-28] MEDS: INSULIN GLARGINE UD 100 UNITS/ML SYR SUBCUT SCH (21:37)
[2019-10-28] MEDS ORDERED: VANCOMYCIN 1500MG in DEXTROSE 5% WATER 250ML IV NR (23:00)
[2019-10-29] VITALS: BP 149/74
[2019-10-29 04:00] VITALS: BP 132/67
[2019-10-29] MEDS ORDERED: MORPHINE SULFATE 2 MG/ML CPJ (NOT FOR IM USE) IV PRN ×2 (05:30→22:00)
[2019-10-29] MEDS: BRIMONIDINE 0.2% OPHTH DROPS 5ML BOTHEYE SCH ×3 (05:54→22:13)
[2019-10-29 06:57] LABS: BASOPHILS % 1.4 % (0.0-2.0); EOSINOPHILS % 7.3 % (0.0-5.0); HEMATOCRIT. 39.3 % (42.0-52.0); HEMOGLOBIN. 12.6 g/dL (14.0-18.0); LYMPHOCYTES % 12.6 % (20.0-50.0); MEAN CORPUSCULAR HEMOGLOBIN 27.1 pg (28.0-32.0); MEAN CORPUSCULAR VOLUME 84.5 fL (80.0-94.0); MEAN PLATELET VOLUME 8.2 fl (7.4-10.4); MONOCYTES % 8.9 % (2.0-8.0); NEUTROPHILS % 69.8 % (40.0-76.0); PLATELET 134 x1000/uL (130-400); RED BLOOD CELL COUNT 4.65 mill/uL (4.7-6.1); RED CELL DISTRIBUTION WIDTH 21.9 % (11.6-14.6)
[2019-10-29] MEDS: INSULIN LISPRO 100 UNITS/ML SUBCUT SCH ×4 (07:50→20:29)
[2019-10-29] MEDS: BLOOD SUGAR DIAGNOSTIC STRIP TEST SCH ×4 (07:56→20:28)
[2019-10-29 08:00] VITALS: BP 139/72
[2019-10-29] MEDS: FOLIC ACID/VITAMIN B COMP W-C TABLET PO SCH (08:57)
[2019-10-29] MEDS: SEVELAMER CARBONATE 800 MG TABLET PO SCH ×3 (08:57→20:09)
[2019-10-29] MEDS: CARVEDILOL 3.125 MG TABLET PO SCH ×2 (08:57→20:11)
[2019-10-29] MEDS: DOCUSATE SODIUM 100MG CAPSULE PO SCH ×2 (08:57→17:00)
[2019-10-29 12:00] VITALS: BP 140/73
[2019-10-29] MEDS: LORATADINE 10MG TABLET PO SCH (12:48)
[2019-10-29] MEDS: FLUTICASONE PROPIONATE 50MCG/SPRAY BOTTLE BOTHNSTRLS SCH ×2 (13:38→22:13)
[2019-10-29 16:00] VITALS: BP 128/73
[2019-10-29] MEDS: DIPHENHYDRAMINE 50MG/ML VIAL IV PRN (17:22)
[2019-10-29] MEDS: CEFTRIAXONE 1 G PREMIX 50 ML IV SCH (18:00)
[2019-10-29 20:00] VITALS: BP 147/71
[2019-10-29] MEDS: FAMOTIDINE 20MG TABLET PO SCH (20:11)
[2019-10-29] MEDS: INSULIN GLARGINE UD 100 UNITS/ML SYR SUBCUT SCH (22:02)
[2019-10-30] VITALS: BP 136/73
[2019-10-30 04:00] VITALS: BP 120/61
[2019-10-30] MEDS: BRIMONIDINE 0.2% OPHTH DROPS 5ML BOTHEYE SCH ×3 (05:29→21:35)
[2019-10-30] MEDS ORDERED: MORPHINE SULFATE 2 MG/ML CPJ (NOT FOR IM USE) IV PRN (05:30)
[2019-10-30] MEDS: BLOOD SUGAR DIAGNOSTIC STRIP TEST SCH ×4 (06:29→21:22)
[2019-10-30] MEDS: INSULIN LISPRO 100 UNITS/ML SUBCUT SCH ×4 (07:50→21:00)
[2019-10-30 08:00] VITALS: BP 139/69
[2019-10-30] MEDS: SEVELAMER CARBONATE 800 MG TABLET PO SCH ×3 (08:30→18:03)
[2019-10-30] MEDS: FLUTICASONE PROPIONATE 50MCG/SPRAY BOTTLE BOTHNSTRLS SCH ×2 (08:30→21:32)
[2019-10-30] MEDS: DOCUSATE SODIUM 100MG CAPSULE PO SCH ×2 (08:31→18:03)
[2019-10-30] MEDS: FOLIC ACID/VITAMIN B COMP W-C TABLET PO SCH (08:31)
[2019-10-30] MEDS: CARVEDILOL 3.125 MG TABLET PO SCH ×2 (08:31→21:30)
[2019-10-30] MEDS: LORATADINE 10MG TABLET PO SCH (08:33)
[2019-10-30 12:00] VITALS: BP_SYST 114; BP_SYST 139; BP_DIAS 63; BP_DIAS 69
[2019-10-30] MEDS ORDERED: LACTULOSE 20G/30ML UDC PO SCH (15:15)
[2019-10-30 16:00] VITALS: BP 127/77
[2019-10-30] MEDS: CEFTRIAXONE 1 G PREMIX 50 ML IV SCH (18:04)
[2019-10-30] MEDS: DEXTROSE 50% WATER 50ML SYRINGE IV PRN (18:07)
[2019-10-30 20:00] VITALS: BP 145/81
[2019-10-30] MEDS: FAMOTIDINE 20MG TABLET PO SCH (21:30)
[2019-10-30] MEDS: INSULIN GLARGINE UD 100 UNITS/ML SYR SUBCUT SCH (22:29)
[2019-10-31] VITALS: BP 151/82
[2019-10-31 04:00] VITALS: BP 147/75
[2019-10-31] MEDS: BRIMONIDINE 0.2% OPHTH DROPS 5ML BOTHEYE SCH (05:31)
[2019-10-31] MEDS: BLOOD SUGAR DIAGNOSTIC STRIP TEST SCH ×4 (06:33→20:28)
[2019-10-31] MEDS: INSULIN LISPRO 100 UNITS/ML SUBCUT SCH ×4 (07:50→21:00)
[2019-10-31 08:00] VITALS: BP 142/69
[2019-10-31] MEDS: FLUTICASONE PROPIONATE 50MCG/SPRAY BOTTLE BOTHNSTRLS SCH ×2 (09:00→20:28)
[2019-10-31] MEDS: CARVEDILOL 3.125 MG TABLET PO SCH ×2 (09:00→21:00)
[2019-10-31] MEDS: LORATADINE 10MG TABLET PO SCH (09:31)
[2019-10-31] MEDS: DOCUSATE SODIUM 100MG CAPSULE PO SCH ×3 (09:31→20:24)
[2019-10-31] MEDS: FOLIC ACID/VITAMIN B COMP W-C TABLET PO SCH (09:31)
[2019-10-31] MEDS: SEVELAMER CARBONATE 800 MG TABLET PO SCH ×3 (09:31→20:24)
[2019-10-31 12:00] VITALS: BP 145/71
[2019-10-31] MEDS: ACETAMINOPHEN 325MG TABLET PO PRN ×2 (13:11→22:47)
[2019-10-31 16:00] VITALS: BP 142/77
[2019-10-31] MEDS ORDERED: LACTULOSE 20G/30ML UDC PO NR (17:45)
[2019-10-31 20:00] VITALS: BP 147/77
[2019-10-31] MEDS: FAMOTIDINE 20MG TABLET PO SCH (20:24)
[2019-10-31] MEDS: INSULIN GLARGINE UD 100 UNITS/ML SYR SUBCUT SCH (22:33)
[2019-10-31] MEDS: MORPHINE SULFATE 2 MG/ML CPJ (NOT FOR IM USE) IV PRN (23:15)
[2019-11-01] VITALS: BP 145/72
[2019-11-01 04:00] VITALS: BP 145/85
[2019-11-01 06:19] LABS: BASOPHILS % 1.7 % (0.0-2.0); EOSINOPHILS % 12.7 % (0.0-5.0); HEMOGLOBIN. 13.4 g/dL (14.0-18.0); LYMPHOCYTES % 14.1 % (20.0-50.0); MEAN CORPUSCULAR HEMOGLOBIN 27.3 pg (28.0-32.0); MEAN CORPUSCULAR VOLUME 85.3 fL (80.0-94.0); MEAN PLATELET VOLUME 8.3 fl (7.4-10.4); MONOCYTES % 8.3 % (2.0-8.0); NEUTROPHILS % 63.2 % (40.0-76.0); PLATELET 123 x1000/uL (130-400); RED BLOOD CELL COUNT 4.92 mill/uL (4.7-6.1); RED CELL DISTRIBUTION WIDTH 22.3 % (11.6-14.6)
[2019-11-01] MEDS: SEVELAMER CARBONATE 800 MG TABLET PO SCH ×4 (06:51→22:00)
[2019-11-01] MEDS: INSULIN LISPRO 100 UNITS/ML SUBCUT SCH ×4 (06:51→22:07)
[2019-11-01] MEDS: BLOOD SUGAR DIAGNOSTIC STRIP TEST SCH ×4 (06:51→21:00)
[2019-11-01 08:00] VITALS: BP 157/88
[2019-11-01] MEDS: FOLIC ACID/VITAMIN B COMP W-C TABLET PO SCH (09:00)
[2019-11-01] MEDS: DOCUSATE SODIUM 100MG CAPSULE PO SCH ×2 (09:00→17:13)
[2019-11-01] MEDS: CARVEDILOL 3.125 MG TABLET PO SCH ×2 (09:00→22:06)
[2019-11-01] MEDS: FLUTICASONE PROPIONATE 50MCG/SPRAY BOTTLE BOTHNSTRLS SCH (10:32)
[2019-11-01] MEDS: LORATADINE 10MG TABLET PO SCH (10:32)
[2019-11-01 11:43] LABS: PLATELET ESTIMATE SLIGHTLY DECREASED
[2019-11-01] MEDS: DIPHENHYDRAMINE 50MG/ML VIAL IV PRN (12:15)
[2019-11-01] MEDS: BRIMONIDINE 0.2% OPHTH DROPS 5ML BOTHEYE SCH ×2 (14:00→21:10)
[2019-11-01 16:00] VITALS: BP 116/74
[2019-11-01 20:00] VITALS: BP 128/65
[2019-11-01 21:08] VITALS: BP 128/65
[2019-11-01] MEDS: FAMOTIDINE 20MG TABLET PO SCH (21:10)
[2019-11-01] MEDS: MORPHINE SULFATE 2 MG/ML CPJ (NOT FOR IM USE) IV PRN (21:12)
[2019-11-01] MEDS: INSULIN GLARGINE UD 100 UNITS/ML SYR SUBCUT SCH (22:11)
[2019-11-02] VITALS: BP 134/66
[2019-11-02 04:00] VITALS: BP 122/66
[2019-11-02] MEDS: BRIMONIDINE 0.2% OPHTH DROPS 5ML BOTHEYE SCH ×2 (06:13→22:03)
[2019-11-02] MEDS: BLOOD SUGAR DIAGNOSTIC STRIP TEST SCH ×4 (06:44→21:49)
[2019-11-02] MEDS: INSULIN LISPRO 100 UNITS/ML SUBCUT SCH ×4 (06:44→22:02)
[2019-11-02 08:00] VITALS: BP 135/74
[2019-11-02] MEDS: DOCUSATE SODIUM 100MG CAPSULE PO SCH ×2 (09:00→21:49)
[2019-11-02] MEDS: SEVELAMER CARBONATE 800 MG TABLET PO SCH ×3 (11:48→21:49)
[2019-11-02] MEDS: FOLIC ACID/VITAMIN B COMP W-C TABLET PO SCH (11:48)
[2019-11-02] MEDS: CARVEDILOL 3.125 MG TABLET PO SCH ×2 (11:49→21:48)
[2019-11-02 12:00] VITALS: BP 135/72
[2019-11-02 16:00] VITALS: BP 144/78
[2019-11-02 20:00] VITALS: BP 130/67
[2019-11-02] MEDS: INSULIN GLARGINE UD 100 UNITS/ML SYR SUBCUT SCH (21:56)
[2019-11-03] VITALS: BP 124/66
[2019-11-03] MEDS: DIPHENHYDRAMINE 50MG/ML VIAL IV PRN ×3 (03:14→15:26)
[2019-11-03] MEDS: ACETAMINOPHEN 325MG TABLET PO PRN ×2 (03:15→15:21)
[2019-11-03 04:00] VITALS: BP 130/68
[2019-11-03] MEDS: BRIMONIDINE 0.2% OPHTH DROPS 5ML BOTHEYE SCH ×3 (06:00→21:20)
[2019-11-03] MEDS: BLOOD SUGAR DIAGNOSTIC STRIP TEST SCH ×4 (06:55→20:59)
[2019-11-03] MEDS: INSULIN LISPRO 100 UNITS/ML SUBCUT SCH ×4 (06:56→21:19)
[2019-11-03 08:00] VITALS: BP 140/67
[2019-11-03] MEDS: CARVEDILOL 3.125 MG TABLET PO SCH ×2 (08:04→21:18)
[2019-11-03] MEDS: SEVELAMER CARBONATE 800 MG TABLET PO SCH ×3 (09:03→17:36)
[2019-11-03] MEDS: FOLIC ACID/VITAMIN B COMP W-C TABLET PO SCH (09:04)
[2019-11-03] MEDS: DOCUSATE SODIUM 100MG CAPSULE PO SCH ×2 (09:04→17:00)
[2019-11-03 12:00] VITALS: BP 137/74
[2019-11-03 16:00] VITALS: BP 143/76
[2019-11-03 20:00] VITALS: BP 138/88
[2019-11-03] MEDS: INSULIN GLARGINE UD 100 UNITS/ML SYR SUBCUT SCH (22:07)
[2019-11-04] VITALS: BP 137/69
[2019-11-04 04:00] VITALS: BP 133/70
[2019-11-04] MEDS: BRIMONIDINE 0.2% OPHTH DROPS 5ML BOTHEYE SCH ×4 (05:41→22:31)
[2019-11-04] MEDS: MORPHINE SULFATE 2 MG/ML CPJ (NOT FOR IM USE) IV PRN (06:02)
[2019-11-04] MEDS: BLOOD SUGAR DIAGNOSTIC STRIP TEST SCH ×4 (06:39→21:00)
[2019-11-04] MEDS: INSULIN LISPRO 100 UNITS/ML SUBCUT SCH ×4 (07:50→21:00)
[2019-11-04 08:00] VITALS: BP 127/63
[2019-11-04] MEDS: SEVELAMER CARBONATE 800 MG TABLET PO SCH ×3 (08:31→17:17)
[2019-11-04] MEDS: FOLIC ACID/VITAMIN B COMP W-C TABLET PO SCH (08:31)
[2019-11-04] MEDS: CARVEDILOL 3.125 MG TABLET PO SCH ×2 (08:32→22:06)
[2019-11-04] MEDS: DOCUSATE SODIUM 100MG CAPSULE PO SCH ×2 (08:32→17:17)
[2019-11-04 12:06] VITALS: BP 129/68
[2019-11-04 16:00] VITALS: BP 136/70
[2019-11-04 20:00] VITALS: BP 130/68
[2019-11-04] MEDS: DIPHENHYDRAMINE 50MG/ML VIAL IV PRN (22:09)
[2019-11-04] MEDS: INSULIN GLARGINE UD 100 UNITS/ML SYR SUBCUT SCH (22:14)
[2019-11-05] VITALS: BP 149/81
[2019-11-05 04:00] VITALS: BP 138/79
[2019-11-05] MEDS: DIPHENHYDRAMINE 50MG/ML VIAL IV PRN (04:33)
[2019-11-05] MEDS: ONDANSETRON HCL 4MG/2ML INJ IV PRN (04:45)
[2019-11-05] MEDS: BLOOD SUGAR DIAGNOSTIC STRIP TEST SCH ×4 (07:45→21:00)
[2019-11-05] MEDS: INSULIN LISPRO 100 UNITS/ML SUBCUT SCH ×4 (07:45→21:00)
[2019-11-05] MEDS: CARVEDILOL 3.125 MG TABLET PO SCH ×2 (09:00→20:42)
[2019-11-05] MEDS: SEVELAMER CARBONATE 800 MG TABLET PO SCH ×3 (09:10→18:13)
[2019-11-05] MEDS: FOLIC ACID/VITAMIN B COMP W-C TABLET PO SCH (09:10)
[2019-11-05] MEDS: ACETAMINOPHEN 325MG TABLET PO PRN (09:10)
[2019-11-05] MEDS: DOCUSATE SODIUM 100MG CAPSULE PO SCH ×2 (09:10→17:00)
[2019-11-05 12:00] VITALS: BP 132/70
[2019-11-05] MEDS: BRIMONIDINE 0.2% OPHTH DROPS 5ML BOTHEYE SCH ×2 (14:25→22:45)
[2019-11-05 16:00] VITALS: BP 136/88
[2019-11-05 19:43] LABS: BASOPHILS % 1.5 % (0.0-2.0); EOSINOPHILS % 1.5 % (0.0-5.0); HEMOGLOBIN. 12.8 g/dL (14.0-18.0); LYMPHOCYTES % 14.5 % (20.0-50.0); MEAN CORPUSCULAR HEMOGLOBIN 27.2 pg (28.0-32.0); MEAN PLATELET VOLUME 9.2 fl (7.4-10.4); MONOCYTES % 7.2 % (2.0-8.0); NEUTROPHILS % 75.3 % (40.0-76.0); PLATELET 77 x1000/uL (130-400); RED CELL DISTRIBUTION WIDTH 21.6 % (11.6-14.6)
[2019-11-05 20:00] VITALS: BP 137/71
[2019-11-05] MEDS: INSULIN GLARGINE UD 100 UNITS/ML SYR SUBCUT SCH (22:00)
[2019-11-06] VITALS: BP 145/75
[2019-11-06 04:00] VITALS: BP 140/72
[2019-11-06] MEDS: BRIMONIDINE 0.2% OPHTH DROPS 5ML BOTHEYE SCH ×3 (06:29→22:34)
[2019-11-06] MEDS: BLOOD SUGAR DIAGNOSTIC STRIP TEST SCH ×4 (06:56→21:35)
[2019-11-06] MEDS: INSULIN LISPRO 100 UNITS/ML SUBCUT SCH ×4 (07:50→21:00)
[2019-11-06] MEDS: SEVELAMER CARBONATE 800 MG TABLET PO SCH ×3 (07:50→22:34)
[2019-11-06 08:00] VITALS: BP 145/77
[2019-11-06] MEDS: CARVEDILOL 3.125 MG TABLET PO SCH ×2 (09:33→20:46)
[2019-11-06] MEDS: FOLIC ACID/VITAMIN B COMP W-C TABLET PO SCH (09:33)
[2019-11-06] MEDS: DOCUSATE SODIUM 100MG CAPSULE PO SCH ×2 (09:33→22:34)
[2019-11-06] MEDS: MORPHINE SULFATE 2 MG/ML CPJ (NOT FOR IM USE) IV PRN (09:42)
[2019-11-06 12:00] VITALS: BP 146/79
[2019-11-06] MEDS ORDERED: LACTULOSE 20G/30ML UDC PO SCH (13:30)
[2019-11-06] MEDS: DIPHENHYDRAMINE 50MG/ML VIAL IV PRN ×2 (14:15→22:35)
[2019-11-06 16:00] VITALS: BP 126/68
[2019-11-06 20:00] VITALS: BP 129/68
[2019-11-06] MEDS: INSULIN GLARGINE UD 100 UNITS/ML SYR SUBCUT SCH (22:00)
[2019-11-07] VITALS: BP 111/60
[2019-11-07 04:00] VITALS: BP 113/55
[2019-11-07] MEDS: BRIMONIDINE 0.2% OPHTH DROPS 5ML BOTHEYE SCH ×3 (06:00→21:52)
[2019-11-07] MEDS: MORPHINE SULFATE 2 MG/ML CPJ (NOT FOR IM USE) IV PRN (06:01)
[2019-11-07] MEDS: BLOOD SUGAR DIAGNOSTIC STRIP TEST SCH ×4 (06:27→21:00)
[2019-11-07] MEDS: INSULIN LISPRO 100 UNITS/ML SUBCUT SCH ×4 (07:50→22:15)
[2019-11-07 08:00] VITALS: BP 132/72
[2019-11-07] MEDS: SEVELAMER CARBONATE 800 MG TABLET PO SCH ×3 (08:51→17:13)
[2019-11-07] MEDS: FOLIC ACID/VITAMIN B COMP W-C TABLET PO SCH (08:51)
[2019-11-07] MEDS: DOCUSATE SODIUM 100MG CAPSULE PO SCH ×2 (08:51→17:13)
[2019-11-07] MEDS: CARVEDILOL 3.125 MG TABLET PO SCH ×2 (09:00→21:00)
[2019-11-07] MEDS: DIPHENHYDRAMINE 50MG/ML VIAL IV PRN ×2 (10:27→22:06)
[2019-11-07 16:00] VITALS: BP 145/81
[2019-11-07 20:00] VITALS: BP 140/64
[2019-11-07] MEDS: INSULIN GLARGINE UD 100 UNITS/ML SYR SUBCUT SCH (21:52)
[2019-11-08] VITALS: BP 150/80
[2019-11-08] MEDS: MORPHINE SULFATE 2 MG/ML CPJ (NOT FOR IM USE) IV PRN ×2 (01:53→09:57)
[2019-11-08 04:00] VITALS: BP 143/80
[2019-11-08] MEDS: BRIMONIDINE 0.2% OPHTH DROPS 5ML BOTHEYE SCH ×3 (06:13→21:53)
[2019-11-08] MEDS: BLOOD SUGAR DIAGNOSTIC STRIP TEST SCH ×4 (07:01→20:20)
[2019-11-08] MEDS: INSULIN LISPRO 100 UNITS/ML SUBCUT SCH ×4 (07:01→20:55)
[2019-11-08 08:00] VITALS: BP 148/63
[2019-11-08] MEDS: FOLIC ACID/VITAMIN B COMP W-C TABLET PO SCH (09:21)
[2019-11-08] MEDS: CARVEDILOL 3.125 MG TABLET PO SCH ×2 (09:21→20:44)
[2019-11-08] MEDS: SEVELAMER CARBONATE 800 MG TABLET PO SCH ×3 (09:21→17:27)
[2019-11-08] MEDS: HYDROCODONE/ACETAMINOPHEN 5/325MG TABLET PO PRN (09:22)
[2019-11-08] MEDS: DOCUSATE SODIUM 100MG CAPSULE PO SCH ×2 (09:22→17:27)
[2019-11-08 12:00] VITALS: BP 116/72
[2019-11-08] MEDS ORDERED: LACTULOSE 20G/30ML UDC PO SCH (12:15)
[2019-11-08 16:00] VITALS: BP 130/63
[2019-11-08 20:00] VITALS: BP 129/66
[2019-11-08] MEDS: INSULIN GLARGINE UD 100 UNITS/ML SYR SUBCUT SCH (21:53)
[2019-11-09] VITALS (7 sets, daily range): BP systolic 123–162; BP diastolic 48–73
[2019-11-09] MEDS: HYDROCODONE/ACETAMINOPHEN 5/325MG TABLET PO PRN (00:13)
[2019-11-09] MEDS: BRIMONIDINE 0.2% OPHTH DROPS 5ML BOTHEYE SCH ×3 (05:59→22:00)
[2019-11-09] MEDS: BLOOD SUGAR DIAGNOSTIC STRIP TEST SCH ×4 (05:59→21:07)
[2019-11-09] MEDS: FOLIC ACID/VITAMIN B COMP W-C TABLET PO SCH (08:24)
[2019-11-09] MEDS: SEVELAMER CARBONATE 800 MG TABLET PO SCH ×3 (08:24→17:43)
[2019-11-09] MEDS: CARVEDILOL 3.125 MG TABLET PO SCH ×2 (08:25→21:59)
[2019-11-09] MEDS: DOCUSATE SODIUM 100MG CAPSULE PO SCH ×2 (08:25→17:43)
[2019-11-09] MEDS: INSULIN LISPRO 100 UNITS/ML SUBCUT SCH ×4 (08:26→21:00)
[2019-11-09] MEDS: DIPHENHYDRAMINE 50MG/ML VIAL IV PRN ×2 (14:59→22:37)
[2019-11-09] MEDS: MORPHINE SULFATE 2 MG/ML CPJ (NOT FOR IM USE) IV PRN ×2 (18:08→21:03)
[2019-11-09] MEDS: INSULIN GLARGINE UD 100 UNITS/ML SYR SUBCUT SCH (21:59)
[2019-11-10] VITALS: BP 140/71
[2019-11-10 04:00] VITALS: BP 155/68
[2019-11-10] MEDS: MORPHINE SULFATE 2 MG/ML CPJ (NOT FOR IM USE) IV PRN ×3 (05:04→21:47)
[2019-11-10] MEDS: BRIMONIDINE 0.2% OPHTH DROPS 5ML BOTHEYE SCH ×3 (06:07→22:00)
[2019-11-10] MEDS: BLOOD SUGAR DIAGNOSTIC STRIP TEST SCH ×4 (06:07→21:00)
[2019-11-10] MEDS: INSULIN LISPRO 100 UNITS/ML SUBCUT SCH ×4 (06:45→22:23)
[2019-11-10 08:00] VITALS: BP 136/68
[2019-11-10] MEDS: FOLIC ACID/VITAMIN B COMP W-C TABLET PO SCH (08:38)
[2019-11-10] MEDS: DOCUSATE SODIUM 100MG CAPSULE PO SCH ×2 (08:39→18:05)
[2019-11-10] MEDS: CARVEDILOL 3.125 MG TABLET PO SCH ×2 (08:39→21:47)
[2019-11-10] MEDS: SEVELAMER CARBONATE 800 MG TABLET PO SCH ×3 (08:39→18:05)
[2019-11-10] MEDS: ACETAMINOPHEN 325MG TABLET PO PRN (10:24)
[2019-11-10] MEDS: DIPHENHYDRAMINE 50MG/ML VIAL IV PRN (10:25)
[2019-11-10 12:00] VITALS: BP 134/73
[2019-11-10 16:00] VITALS: BP 133/68
[2019-11-10 20:00] VITALS: BP 125/73
[2019-11-10] MEDS: INSULIN GLARGINE UD 100 UNITS/ML SYR SUBCUT SCH (22:00)
[2019-11-11] VITALS: BP 121/75
[2019-11-11] MEDS: DIPHENHYDRAMINE 50MG/ML VIAL IV PRN (01:39)
[2019-11-11 04:00] VITALS: BP 130/79
[2019-11-11] MEDS: BRIMONIDINE 0.2% OPHTH DROPS 5ML BOTHEYE SCH ×3 (06:00→22:16)
[2019-11-11] MEDS: INSULIN LISPRO 100 UNITS/ML SUBCUT SCH ×4 (07:50→22:15)
[2019-11-11] MEDS: BLOOD SUGAR DIAGNOSTIC STRIP TEST SCH ×4 (08:08→21:00)
[2019-11-11] MEDS: SEVELAMER CARBONATE 800 MG TABLET PO SCH ×3 (09:11→17:36)
[2019-11-11] MEDS: DOCUSATE SODIUM 100MG CAPSULE PO SCH ×2 (09:11→17:36)
[2019-11-11] MEDS: CARVEDILOL 3.125 MG TABLET PO SCH ×2 (09:12→22:04)
[2019-11-11] MEDS: FOLIC ACID/VITAMIN B COMP W-C TABLET PO SCH (09:12)
[2019-11-11 09:46] VITALS: BP 149/71
[2019-11-11] MEDS ORDERED: LACTULOSE 20G/30ML UDC PO SCH (13:15)
[2019-11-11] MEDS ORDERED: HYDROCODONE/ACETAMINOPHEN 5/325MG TABLET PO PRN (18:27)
[2019-11-11] MEDS: MORPHINE SULFATE 2 MG/ML CPJ (NOT FOR IM USE) IV PRN (19:59)
[2019-11-11 20:00] VITALS: BP 150/78
[2019-11-11] MEDS: INSULIN GLARGINE UD 100 UNITS/ML SYR SUBCUT SCH (22:00)
[2019-11-12] VITALS: BP 135/66
[2019-11-12] MEDS: DIPHENHYDRAMINE 50MG/ML VIAL IV PRN ×2 (00:52→15:57)
[2019-11-12 04:00] VITALS: BP 138/69
[2019-11-12] MEDS: BRIMONIDINE 0.2% OPHTH DROPS 5ML BOTHEYE SCH ×3 (06:46→21:51)
[2019-11-12] MEDS: BLOOD SUGAR DIAGNOSTIC STRIP TEST SCH ×4 (07:00→21:00)
[2019-11-12] MEDS: MORPHINE SULFATE 2 MG/ML CPJ (NOT FOR IM USE) IV PRN ×3 (07:25→21:51)
[2019-11-12 08:00] VITALS: BP 153/78
[2019-11-12] MEDS: DOCUSATE SODIUM 100MG CAPSULE PO SCH ×2 (08:43→17:46)
[2019-11-12] MEDS: CARVEDILOL 3.125 MG TABLET PO SCH ×2 (08:43→21:50)
[2019-11-12] MEDS: SEVELAMER CARBONATE 800 MG TABLET PO SCH ×3 (08:43→17:50)
[2019-11-12] MEDS: FOLIC ACID/VITAMIN B COMP W-C TABLET PO SCH (08:43)
[2019-11-12] MEDS: INSULIN LISPRO 100 UNITS/ML SUBCUT SCH ×4 (08:49→21:00)
[2019-11-12 12:00] VITALS: BP 138/96
[2019-11-12 16:00] VITALS: BP 135/68
[2019-11-12] MEDS: ONDANSETRON HCL 4MG/2ML INJ IV PRN (16:38)
[2019-11-12 20:00] VITALS: BP 151/78
[2019-11-12] MEDS: INSULIN GLARGINE UD 100 UNITS/ML SYR SUBCUT SCH (22:08)
[2019-11-13] VITALS: BP 148/74
[2019-11-13 04:00] VITALS: BP 139/70
[2019-11-13] MEDS: BRIMONIDINE 0.2% OPHTH DROPS 5ML BOTHEYE SCH ×3 (05:53→21:24)
[2019-11-13 06:33] LABS: HEMATOCRIT. 40.4 % (42.0-52.0); HEMOGLOBIN. 12.8 g/dL (14.0-18.0); MEAN CORPUSCULAR HEMOGLOBIN 27.5 pg (28.0-32.0); MEAN CORPUSCULAR VOLUME 86.7 fL (80.0-94.0); MEAN PLATELET VOLUME 8.6 fl (7.4-10.4); PLATELET 80 x1000/uL (130-400); RED BLOOD CELL COUNT 4.66 mill/uL (4.7-6.1)
[2019-11-13] MEDS: BLOOD SUGAR DIAGNOSTIC STRIP TEST SCH ×4 (06:37→21:40)
[2019-11-13] MEDS: INSULIN LISPRO 100 UNITS/ML SUBCUT SCH ×4 (07:50→21:36)
[2019-11-13 08:00] VITALS: BP 147/76
[2019-11-13] MEDS: CARVEDILOL 3.125 MG TABLET PO SCH ×2 (08:57→21:24)
[2019-11-13] MEDS: FOLIC ACID/VITAMIN B COMP W-C TABLET PO SCH (08:57)
[2019-11-13] MEDS: DOCUSATE SODIUM 100MG CAPSULE PO SCH ×2 (08:58→17:09)
[2019-11-13] MEDS: SEVELAMER CARBONATE 800 MG TABLET PO SCH ×3 (09:02→17:09)
[2019-11-13] MEDS: MORPHINE SULFATE 2 MG/ML CPJ (NOT FOR IM USE) IV PRN (09:47)
[2019-11-13 12:00] VITALS: BP 143/73
[2019-11-13 14:13] LABS: PLATELET ESTIMATE DECREASED
[2019-11-13 16:00] VITALS: BP 143/90
[2019-11-13 20:00] VITALS: BP 146/78
[2019-11-13] MEDS: INSULIN GLARGINE UD 100 UNITS/ML SYR SUBCUT SCH (21:37)
[2019-11-13] MEDS: DIPHENHYDRAMINE 50MG/ML VIAL IV PRN (21:40)
[2019-11-14] VITALS: BP 139/76
[2019-11-14] MEDS: MORPHINE SULFATE 2 MG/ML CPJ (NOT FOR IM USE) IV PRN ×3 (00:32→14:36)
[2019-11-14 04:00] VITALS: BP 128/68
[2019-11-14] MEDS: BRIMONIDINE 0.2% OPHTH DROPS 5ML BOTHEYE SCH ×3 (06:00→21:38)
[2019-11-14] MEDS: BLOOD SUGAR DIAGNOSTIC STRIP TEST SCH ×4 (06:39→21:37)
[2019-11-14] MEDS: INSULIN LISPRO 100 UNITS/ML SUBCUT SCH ×4 (07:50→21:00)
[2019-11-14 08:00] VITALS: BP 144/84
[2019-11-14] MEDS: DOCUSATE SODIUM 100MG CAPSULE PO SCH ×2 (08:51→17:40)
[2019-11-14] MEDS: FOLIC ACID/VITAMIN B COMP W-C TABLET PO SCH (08:51)
[2019-11-14] MEDS: SEVELAMER CARBONATE 800 MG TABLET PO SCH ×3 (08:51→17:40)
[2019-11-14] MEDS: CARVEDILOL 3.125 MG TABLET PO SCH ×2 (08:52→21:37)
[2019-11-14] MEDS: DIPHENHYDRAMINE 50MG/ML VIAL IV PRN (10:49)
[2019-11-14 12:00] VITALS: BP 126/70
[2019-11-14] MEDS ORDERED: LACTULOSE 20G/30ML UDC PO NR (13:05)
[2019-11-14 16:00] VITALS: BP 145/74
[2019-11-14 20:00] VITALS: BP 146/77
[2019-11-14] MEDS: INSULIN GLARGINE UD 100 UNITS/ML SYR SUBCUT SCH (21:38)
[2019-11-15] VITALS: BP 139/76
[2019-11-15 04:00] VITALS: BP 137/86
[2019-11-15] MEDS: BRIMONIDINE 0.2% OPHTH DROPS 5ML BOTHEYE SCH ×3 (06:03→21:45)
[2019-11-15] MEDS: INSULIN LISPRO 100 UNITS/ML SUBCUT SCH ×4 (06:32→21:00)
[2019-11-15] MEDS: BLOOD SUGAR DIAGNOSTIC STRIP TEST SCH ×4 (06:32→21:55)
[2019-11-15 08:00] VITALS: BP 166/73
[2019-11-15] MEDS ORDERED: POLYETHYLENE GLYCOL 3350 (17GM) 1 DOSE PACK PO SCH (09:00)
[2019-11-15] MEDS: DOCUSATE SODIUM 100MG CAPSULE PO SCH ×2 (09:20→17:00)
[2019-11-15] MEDS: FOLIC ACID/VITAMIN B COMP W-C TABLET PO SCH (09:20)
[2019-11-15] MEDS: SEVELAMER CARBONATE 800 MG TABLET PO SCH ×3 (09:20→17:48)
[2019-11-15] MEDS: CARVEDILOL 3.125 MG TABLET PO SCH ×2 (09:21→21:45)
[2019-11-15] MEDS: MORPHINE SULFATE 2 MG/ML CPJ (NOT FOR IM USE) IV PRN (09:23)
[2019-11-15] MEDS: PSYLLIUM SEED PACKET PO SCH ×2 (09:32→17:00)
[2019-11-15 12:00] VITALS: BP 155/84
[2019-11-15 16:00] VITALS: BP 157/81
[2019-11-15] MEDS ORDERED: LACTULOSE 20G/30ML UDC PO NR (17:52)
[2019-11-15] MEDS: DIPHENHYDRAMINE 50MG/ML VIAL IV PRN ×2 (18:25→23:36)
[2019-11-15 20:00] VITALS: BP 158/77
[2019-11-15] MEDS: INSULIN GLARGINE UD 100 UNITS/ML SYR SUBCUT SCH (22:00)
[2019-11-16] VITALS: BP 156/84
[2019-11-16 04:00] VITALS: BP 134/71
[2019-11-16] MEDS: BRIMONIDINE 0.2% OPHTH DROPS 5ML BOTHEYE SCH ×3 (05:49→21:22)
[2019-11-16] MEDS: BLOOD SUGAR DIAGNOSTIC STRIP TEST SCH ×4 (06:11→20:52)
[2019-11-16] MEDS: INSULIN LISPRO 100 UNITS/ML SUBCUT SCH ×4 (06:11→21:00)
[2019-11-16] MEDS: SEVELAMER CARBONATE 800 MG TABLET PO SCH ×3 (07:50→17:39)
[2019-11-16 08:00] VITALS: BP 131/92
[2019-11-16] MEDS: FOLIC ACID/VITAMIN B COMP W-C TABLET PO SCH (08:54)
[2019-11-16] MEDS: DOCUSATE SODIUM 100MG CAPSULE PO SCH ×2 (08:55→17:39)
[2019-11-16] MEDS: CARVEDILOL 3.125 MG TABLET PO SCH ×2 (08:55→20:52)
[2019-11-16] MEDS: PSYLLIUM SEED PACKET PO SCH ×2 (08:55→17:00)
[2019-11-16] MEDS: DIPHENHYDRAMINE 50MG/ML VIAL IV PRN ×2 (09:01→23:18)
[2019-11-16 12:00] VITALS: BP 136/71
[2019-11-16 16:00] VITALS: BP 132/67
[2019-11-16 20:00] VITALS: BP 139/74
[2019-11-16] MEDS: INSULIN GLARGINE UD 100 UNITS/ML SYR SUBCUT SCH (21:22)
[2019-11-17] VITALS: BP 144/76
[2019-11-17] MEDS: ONDANSETRON HCL 4MG/2ML INJ IV PRN (02:23)
[2019-11-17 04:00] VITALS: BP 136/77
[2019-11-17] MEDS: BRIMONIDINE 0.2% OPHTH DROPS 5ML BOTHEYE SCH ×3 (05:37→22:00)
[2019-11-17] MEDS: BLOOD SUGAR DIAGNOSTIC STRIP TEST SCH ×4 (06:01→21:00)
[2019-11-17] MEDS: INSULIN LISPRO 100 UNITS/ML SUBCUT SCH ×4 (07:50→21:00)
[2019-11-17 08:00] VITALS: BP 139/68
[2019-11-17] MEDS: FOLIC ACID/VITAMIN B COMP W-C TABLET PO SCH (09:03)
[2019-11-17] MEDS: SEVELAMER CARBONATE 800 MG TABLET PO SCH ×3 (09:03→17:35)
[2019-11-17] MEDS: DOCUSATE SODIUM 100MG CAPSULE PO SCH ×2 (09:03→17:35)
[2019-11-17] MEDS: PSYLLIUM SEED PACKET PO SCH ×2 (09:14→17:35)
[2019-11-17] MEDS: CARVEDILOL 3.125 MG TABLET PO SCH (09:14)
[2019-11-17] MEDS: MORPHINE SULFATE 2 MG/ML CPJ (NOT FOR IM USE) IV PRN (11:11)
[2019-11-17 12:00] VITALS: BP 148/68
[2019-11-17] MEDS ORDERED: LACTULOSE 20G/30ML UDC PO NR (12:15)
[2019-11-17 16:00] VITALS: BP 135/65
[2019-11-17 20:00] VITALS: BP 139/70
[2019-11-17] MEDS: INSULIN GLARGINE UD 100 UNITS/ML SYR SUBCUT SCH (22:23)
[2019-11-18] VITALS: BP 148/79
[2019-11-18] MEDS: CARVEDILOL 3.125 MG TABLET PO SCH ×3 (02:13→21:01)
[2019-11-18 04:00] VITALS: BP 121/64
[2019-11-18] MEDS: BRIMONIDINE 0.2% OPHTH DROPS 5ML BOTHEYE SCH ×3 (05:54→22:00)
[2019-11-18] MEDS: BLOOD SUGAR DIAGNOSTIC STRIP TEST SCH ×4 (07:20→21:11)
[2019-11-18] MEDS ORDERED: LIDOCAINE HCL 1% 20ML VIAL (Pyxis) INJ ONE (07:46)
[2019-11-18] MEDS ORDERED: SODIUM BICARBONATE 4% (2.4MEQ) 5ML VIAL IV ONE (07:46)
[2019-11-18] MEDS: INSULIN LISPRO 100 UNITS/ML SUBCUT SCH ×4 (07:50→21:00)
[2019-11-18 08:00] VITALS: BP 143/74
[2019-11-18] MEDS: SEVELAMER CARBONATE 800 MG TABLET PO SCH ×3 (09:44→17:49)
[2019-11-18] MEDS: DOCUSATE SODIUM 100MG CAPSULE PO SCH ×2 (09:44→17:49)
[2019-11-18] MEDS: FOLIC ACID/VITAMIN B COMP W-C TABLET PO SCH (09:44)
[2019-11-18] MEDS: PSYLLIUM SEED PACKET PO SCH ×2 (09:45→17:49)
[2019-11-18 10:48] LABS: BASOPHILS % 1.4 % (0.0-2.0); EOSINOPHILS % 11.1 % (0.0-5.0); HEMATOCRIT. 39.9 % (42.0-52.0); HEMOGLOBIN. 13.1 g/dL (14.0-18.0); LYMPHOCYTES % 19.2 % (20.0-50.0); MEAN CORPUSCULAR HEMOGLOBIN 28.3 pg (28.0-32.0); MEAN CORPUSCULAR VOLUME 85.8 fL (80.0-94.0); MEAN PLATELET VOLUME 9.5 fl (7.4-10.4); MONOCYTES % 7.6 % (2.0-8.0); NEUTROPHILS % 60.7 % (40.0-76.0); PLATELET 62 x1000/uL (130-400); RED BLOOD CELL COUNT 4.65 mill/uL (4.7-6.1); RED CELL DISTRIBUTION WIDTH 22.9 % (11.6-14.6)
[2019-11-18] MEDS: DIPHENHYDRAMINE 50MG/ML VIAL IV PRN ×2 (10:50→23:16)
[2019-11-18 12:00] VITALS: BP 124/46
[2019-11-18] MEDS: MORPHINE SULFATE 2 MG/ML CPJ (NOT FOR IM USE) IV PRN ×2 (14:55→21:00)
[2019-11-18 16:00] VITALS: BP 129/53
[2019-11-18 20:00] VITALS: BP 126/93
[2019-11-18] MEDS: INSULIN GLARGINE UD 100 UNITS/ML SYR SUBCUT SCH (20:56)
[2019-11-19] VITALS (7 sets, daily range): BP systolic 128–159; BP diastolic 47–90
[2019-11-19] MEDS: BRIMONIDINE 0.2% OPHTH DROPS 5ML BOTHEYE SCH ×3 (06:00→21:33)
[2019-11-19] MEDS: INSULIN LISPRO 100 UNITS/ML SUBCUT SCH ×4 (07:37→21:31)
[2019-11-19] MEDS: BLOOD SUGAR DIAGNOSTIC STRIP TEST SCH ×4 (07:37→20:26)
[2019-11-19] MEDS: DIPHENHYDRAMINE 50MG/ML VIAL IV PRN ×2 (08:32→21:32)
[2019-11-19] MEDS: CARVEDILOL 3.125 MG TABLET PO SCH ×2 (09:00→20:26)
[2019-11-19] MEDS: SEVELAMER CARBONATE 800 MG TABLET PO SCH ×3 (10:24→16:54)
[2019-11-19] MEDS: DOCUSATE SODIUM 100MG CAPSULE PO SCH ×2 (10:24→16:54)
[2019-11-19] MEDS: PSYLLIUM SEED PACKET PO SCH ×2 (10:24→16:54)
[2019-11-19] MEDS: FOLIC ACID/VITAMIN B COMP W-C TABLET PO SCH (10:24)
[2019-11-19] MEDS: MORPHINE SULFATE 2 MG/ML CPJ (NOT FOR IM USE) IV PRN ×3 (10:25→23:18)
[2019-11-19] MEDS: INSULIN GLARGINE UD 100 UNITS/ML SYR SUBCUT SCH (21:32)
[2019-11-20 00:08] VITALS: BP 156/48
[2019-11-20] MEDS: DIPHENHYDRAMINE 50MG/ML VIAL IV PRN ×3 (02:28→22:13)
[2019-11-20 04:00] VITALS: BP 141/42
[2019-11-20] MEDS: BRIMONIDINE 0.2% OPHTH DROPS 5ML BOTHEYE SCH ×3 (06:00→22:03)
[2019-11-20] MEDS: INSULIN LISPRO 100 UNITS/ML SUBCUT SCH ×4 (06:11→20:47)
[2019-11-20] MEDS: BLOOD SUGAR DIAGNOSTIC STRIP TEST SCH ×4 (06:11→20:38)
[2019-11-20 08:00] VITALS: BP 125/92
[2019-11-20] MEDS: FOLIC ACID/VITAMIN B COMP W-C TABLET PO SCH (09:14)
[2019-11-20] MEDS: SEVELAMER CARBONATE 800 MG TABLET PO SCH ×3 (09:14→17:38)
[2019-11-20] MEDS: DOCUSATE SODIUM 100MG CAPSULE PO SCH ×2 (09:14→17:38)
[2019-11-20] MEDS: PSYLLIUM SEED PACKET PO SCH ×2 (09:19→17:39)
[2019-11-20] MEDS: CARVEDILOL 3.125 MG TABLET PO SCH ×2 (09:19→20:48)
[2019-11-20] MEDS: MORPHINE SULFATE 2 MG/ML CPJ (NOT FOR IM USE) IV PRN (14:27)
[2019-11-20 16:00] VITALS: BP 147/91
[2019-11-20 20:00] VITALS: BP 133/53
[2019-11-20] MEDS: INSULIN GLARGINE UD 100 UNITS/ML SYR SUBCUT SCH (22:02)
[2019-11-21] VITALS: BP 153/60
[2019-11-21 04:00] VITALS: BP 139/39
[2019-11-21] MEDS: BRIMONIDINE 0.2% OPHTH DROPS 5ML BOTHEYE SCH ×3 (06:00→21:41)
[2019-11-21] MEDS: CARVEDILOL 3.125 MG TABLET PO SCH ×2 (09:00→20:31)
[2019-11-21] MEDS: SEVELAMER CARBONATE 800 MG TABLET PO SCH ×3 (09:03→17:03)
[2019-11-21] MEDS: DOCUSATE SODIUM 100MG CAPSULE PO SCH ×2 (09:03→17:03)
[2019-11-21] MEDS: PSYLLIUM SEED PACKET PO SCH ×2 (09:03→17:03)
[2019-11-21] MEDS: FOLIC ACID/VITAMIN B COMP W-C TABLET PO SCH (09:03)
[2019-11-21] MEDS: DIPHENHYDRAMINE 50MG/ML VIAL IV PRN ×2 (10:50→21:40)
[2019-11-21 12:00] VITALS: BP 117/52
[2019-11-21] MEDS: MORPHINE SULFATE 2 MG/ML CPJ (NOT FOR IM USE) IV PRN (15:35)
[2019-11-21 16:00] VITALS: BP 151/56
[2019-11-21] MEDS: INSULIN LISPRO 100 UNITS/ML SUBCUT SCH ×2 (17:22→20:32)
[2019-11-21] MEDS: BLOOD SUGAR DIAGNOSTIC STRIP TEST SCH ×2 (17:22→20:31)
[2019-11-21 20:00] VITALS: BP 149/87
[2019-11-21] MEDS: LACTULOSE 20G/30ML UDC PO PRN (21:40)
[2019-11-21] MEDS: INSULIN GLARGINE UD 100 UNITS/ML SYR SUBCUT SCH (22:00)
[2019-11-22] VITALS: BP 153/77
[2019-11-22 04:00] VITALS: BP 131/64
[2019-11-22] MEDS: BLOOD SUGAR DIAGNOSTIC STRIP TEST SCH ×4 (06:56→20:28)
[2019-11-22] MEDS: INSULIN LISPRO 100 UNITS/ML SUBCUT SCH ×4 (06:57→20:29)
[2019-11-22 08:00] VITALS: BP 149/60
[2019-11-22] MEDS: PSYLLIUM SEED PACKET PO SCH ×2 (09:03→16:25)
[2019-11-22] MEDS: DIPHENHYDRAMINE 50MG/ML VIAL IV PRN ×2 (10:16→20:18)
[2019-11-22 12:00] VITALS: BP 125/48
[2019-11-22 16:00] VITALS: BP 142/53
[2019-11-22] MEDS: HYDROCODONE/ACETAMINOPHEN 5/325MG TABLET PO PRN (17:35)
[2019-11-22 20:00] VITALS: BP 117/59
[2019-11-22] MEDS: LACTULOSE 20G/30ML UDC PO PRN (21:54)
[2019-11-22] MEDS: INSULIN GLARGINE UD 100 UNITS/ML SYR SUBCUT SCH (21:56)
[2019-11-23] VITALS (7 sets, daily range): BP systolic 115–163; BP diastolic 43–73
[2019-11-23] MEDS: DIPHENHYDRAMINE 50MG/ML VIAL IV PRN ×2 (02:30→21:13)
[2019-11-23] MEDS: INSULIN LISPRO 100 UNITS/ML SUBCUT SCH ×4 (06:48→21:00)
[2019-11-23] MEDS: BLOOD SUGAR DIAGNOSTIC STRIP TEST SCH ×4 (06:48→21:20)
[2019-11-23] MEDS: PSYLLIUM SEED PACKET PO SCH ×2 (08:46→16:55)
[2019-11-23] MEDS: LACTULOSE 20G/30ML UDC PO PRN (21:25)
[2019-11-23] MEDS: INSULIN GLARGINE UD 100 UNITS/ML SYR SUBCUT SCH (21:32)
[2019-11-24] VITALS: BP 154/57
[2019-11-24 04:00] VITALS: BP 160/61
[2019-11-24] MEDS: DIPHENHYDRAMINE 50MG/ML VIAL IV PRN ×3 (04:08→20:58)
[2019-11-24] MEDS: BLOOD SUGAR DIAGNOSTIC STRIP TEST SCH ×4 (06:41→20:57)
[2019-11-24] MEDS: DEXTROSE 50% WATER 50ML SYRINGE IV PRN (06:45)
[2019-11-24 07:16] LABS: BASOPHILS % 1.5 % (0.0-2.0); EOSINOPHILS % 10.1 % (0.0-5.0); HEMATOCRIT. 39.9 % (42.0-52.0); HEMOGLOBIN. 13.1 g/dL (14.0-18.0); LYMPHOCYTES % 19.3 % (20.0-50.0); MEAN CORPUSCULAR HEMOGLOBIN 28.6 pg (28.0-32.0); MEAN CORPUSCULAR VOLUME 87.1 fL (80.0-94.0); MEAN PLATELET VOLUME 8.9 fl (7.4-10.4); MONOCYTES % 10.3 % (2.0-8.0); NEUTROPHILS % 58.8 % (40.0-76.0); PLATELET 74 x1000/uL (130-400); RED BLOOD CELL COUNT 4.58 mill/uL (4.7-6.1); RED CELL DISTRIBUTION WIDTH 23.5 % (11.6-14.6)
[2019-11-24] MEDS: INSULIN LISPRO 100 UNITS/ML SUBCUT SCH ×4 (07:50→20:57)
[2019-11-24 08:00] VITALS: BP 139/76
[2019-11-24] MEDS: PSYLLIUM SEED PACKET PO SCH ×2 (08:34→16:08)
[2019-11-24 12:00] VITALS: BP 130/90
[2019-11-24 16:00] VITALS: BP 121/57
[2019-11-24] MEDS: HYDROCODONE/ACETAMINOPHEN 5/325MG TABLET PO PRN (16:07)
[2019-11-24 20:00] VITALS: BP 137/47
[2019-11-24] MEDS: INSULIN GLARGINE UD 100 UNITS/ML SYR SUBCUT SCH (21:06)
[2019-11-24] MEDS: LACTULOSE 20G/30ML UDC PO PRN (21:10)
[2019-11-25] VITALS: BP 146/51
[2019-11-25 04:00] VITALS: BP 127/32
[2019-11-25] MEDS: DIPHENHYDRAMINE 50MG/ML VIAL IV PRN ×3 (04:28→20:06)
[2019-11-25] MEDS: BLOOD SUGAR DIAGNOSTIC STRIP TEST SCH ×4 (06:25→20:05)
[2019-11-25 06:51] LABS: HEMATOCRIT. 40.5 % (42.0-52.0); HEMOGLOBIN. 13.4 g/dL (14.0-18.0); MEAN CORPUSCULAR HEMOGLOBIN 28.7 pg (28.0-32.0); MEAN PLATELET VOLUME 9.3 fl (7.4-10.4); PLATELET 75 x1000/uL (130-400); RED BLOOD CELL COUNT 4.65 mill/uL (4.7-6.1); RED CELL DISTRIBUTION WIDTH 23.8 % (11.6-14.6)
[2019-11-25 06:59] LABS: FERRITIN 700 ng/mL (22-322); FOLIC ACID (FOLATE) SERUM >20 ng/mL ng/mL (>5.38)
[2019-11-25 07:11] LABS: VITAMIN B12 SERUM 1279 pg/mL (211-911)
[2019-11-25] MEDS: INSULIN LISPRO 100 UNITS/ML SUBCUT SCH ×4 (07:50→20:12)
[2019-11-25 08:00] VITALS: BP 126/62
[2019-11-25] MEDS: PSYLLIUM SEED PACKET PO SCH ×2 (09:39→17:24)
[2019-11-25 12:00] VITALS: BP 129/71
[2019-11-25 13:55] LABS: PLATELET ESTIMATE DECREASED
[2019-11-25 16:00] VITALS: BP 127/65
[2019-11-25] MEDS: DOCUSATE SODIUM 100MG CAPSULE PO SCH (17:24)
[2019-11-25 20:00] VITALS: BP 141/66
[2019-11-25] MEDS: LACTULOSE 20G/30ML UDC PO PRN (20:13)
[2019-11-25] MEDS: INSULIN GLARGINE UD 100 UNITS/ML SYR SUBCUT SCH (21:46)
[2019-11-26] VITALS: BP 162/73
[2019-11-26 04:00] VITALS: BP 145/83
[2019-11-26] MEDS: DIPHENHYDRAMINE 50MG/ML VIAL IV PRN ×3 (04:26→18:49)
[2019-11-26] MEDS: BLOOD SUGAR DIAGNOSTIC STRIP TEST SCH ×4 (06:47→21:06)
[2019-11-26] MEDS: INSULIN LISPRO 100 UNITS/ML SUBCUT SCH ×4 (07:50→21:00)
[2019-11-26 08:00] VITALS: BP 151/48
[2019-11-26] MEDS: DOCUSATE SODIUM 100MG CAPSULE PO SCH ×2 (09:00→17:40)
[2019-11-26] MEDS: PSYLLIUM SEED PACKET PO SCH ×2 (09:00→17:40)
[2019-11-26 12:00] VITALS: BP 175/67
[2019-11-26] MEDS: ACETAMINOPHEN 325MG TABLET PO PRN ×2 (13:02→22:35)
[2019-11-26 16:00] VITALS: BP 136/50
[2019-11-26] MEDS: LORATADINE 10MG TABLET PO SCH (16:20)
[2019-11-26 20:00] VITALS: BP 139/88
[2019-11-26] MEDS: INSULIN GLARGINE UD 100 UNITS/ML SYR SUBCUT SCH (22:33)
[2019-11-27] VITALS: BP 140/59
[2019-11-27] MEDS: DIPHENHYDRAMINE 50MG/ML VIAL IV PRN ×2 (01:20→09:11)
[2019-11-27 04:00] VITALS: BP 141/78
[2019-11-27] MEDS: DEXTROSE 50% WATER 50ML SYRINGE IV PRN (06:05)
[2019-11-27] MEDS: INSULIN LISPRO 100 UNITS/ML SUBCUT SCH ×2 (06:06→12:22)
[2019-11-27] MEDS: BLOOD SUGAR DIAGNOSTIC STRIP TEST SCH ×2 (06:06→12:22)
[2019-11-27 08:00] VITALS: BP 175/54
[2019-11-27] MEDS: LORATADINE 10MG TABLET PO SCH (08:22)
[2019-11-27] MEDS: DOCUSATE SODIUM 100MG CAPSULE PO SCH (08:23)
[2019-11-27] MEDS: PSYLLIUM SEED PACKET PO SCH (08:23)
[2019-11-27] MEDS: ACETAMINOPHEN 325MG TABLET PO PRN (08:23)
[2019-11-27 10:11] VITALS: BP 110/66
[2019-11-27 12:30] VITALS: BP 149/82
== END 2019-11-27 03:06 | DRG 720 ==
LOC: ER 09:30 → 6EST 12:13 → EDBEDREQ 12:19 → EDBEDREQTM 12:19 → ENRESERV 13:46
PROVIDERS: ADMIT Internal Medicine; ATTEND Internal Medicine
PROC: 5A1D70Z Performance of Urinary Filtration, Intermittent, Less than 6 Hours Per Day (ICD-10-PCS; 2019-10-24)
PROC: 5A1D70Z Performance of Urinary Filtration, Intermittent, Less than 6 Hours Per Day (ICD-10-PCS; 2019-10-27)
PROC: 5A1D70Z Performance of Urinary Filtration, Intermittent, Less than 6 Hours Per Day (ICD-10-PCS; 2019-10-29)
PROC: 5A1D70Z Performance of Urinary Filtration, Intermittent, Less than 6 Hours Per Day (ICD-10-PCS; 2019-10-31)
PROC: 5A1D70Z Performance of Urinary Filtration, Intermittent, Less than 6 Hours Per Day (ICD-10-PCS; 2019-11-01)
PROC: 5A1D70Z Performance of Urinary Filtration, Intermittent, Less than 6 Hours Per Day (ICD-10-PCS; 2019-11-03)
PROC: 5A1D70Z Performance of Urinary Filtration, Intermittent, Less than 6 Hours Per Day (ICD-10-PCS; 2019-11-05)
PROC: 5A1D70Z Performance of Urinary Filtration, Intermittent, Less than 6 Hours Per Day (ICD-10-PCS; 2019-11-07)
PROC: 5A1D70Z Performance of Urinary Filtration, Intermittent, Less than 6 Hours Per Day (ICD-10-PCS; 2019-11-10)
PROC: 5A1D70Z Performance of Urinary Filtration, Intermittent, Less than 6 Hours Per Day (ICD-10-PCS; 2019-11-12)
PROC: 5A1D70Z Performance of Urinary Filtration, Intermittent, Less than 6 Hours Per Day (ICD-10-PCS; 2019-11-14)
PROC: 5A1D70Z Performance of Urinary Filtration, Intermittent, Less than 6 Hours Per Day (ICD-10-PCS; 2019-11-17)
PROC: 02HV33Z Insertion of Infusion Device into Superior Vena Cava, Percutaneous Approach (ICD-10-PCS; principal; 2019-11-18)
PROC: B548ZZA Ultrasonography of Superior Vena Cava, Guidance (ICD-10-PCS; 2019-11-18)
PROC: 5A1D70Z Performance of Urinary Filtration, Intermittent, Less than 6 Hours Per Day (ICD-10-PCS; 2019-11-18)
PROC: 5A1D70Z Performance of Urinary Filtration, Intermittent, Less than 6 Hours Per Day (ICD-10-PCS; 2019-11-21)
PROC: 5A1D70Z Performance of Urinary Filtration, Intermittent, Less than 6 Hours Per Day (ICD-10-PCS; 2019-11-24)
PROC: 5A1D70Z Performance of Urinary Filtration, Intermittent, Less than 6 Hours Per Day (ICD-10-PCS; 2019-11-27)
DX: A41.51 Sepsis due to Escherichia coli [E. coli] (principal); I13.2 Hypertensive heart and chronic kidney disease with heart failure and with stage 5 chronic kidney disease, or end stage renal disease; E11.22 Type 2 diabetes mellitus with diabetic chronic kidney disease; E11.40 Type 2 diabetes mellitus with diabetic neuropathy, unspecified; D69.6 Thrombocytopenia, unspecified; N18.6 End stage renal disease; E11.51 Type 2 diabetes mellitus with diabetic peripheral angiopathy without gangrene; E11.621 Type 2 diabetes mellitus with foot ulcer; L03.116 Cellulitis of left lower limb; D63.1 Anemia in chronic kidney disease; E83.41 Hypermagnesemia; L97.429 Non-pressure chronic ulcer of left heel and midfoot with unspecified severity; N25.81 Secondary hyperparathyroidism of renal origin; N39.0 Urinary tract infection, site not specified; E83.39 Other disorders of phosphorus metabolism; E87.5 Hyperkalemia; I50.9 Heart failure, unspecified; K59.00 Constipation, unspecified; J30.9 Allergic rhinitis, unspecified; Z79.4 Long term (current) use of insulin; Z99.2 Dependence on renal dialysis; Z79.82 Long term (current) use of aspirin; Z83.3 Family history of diabetes mellitus; Z79.899 Other long term (current) drug therapy; Z90.49 Acquired absence of other specified parts of digestive tract; Z03.818 Encounter for observation for suspected exposure to other biological agents ruled out
CPT/HCPCS: 36415; 36573; 73630; 73650; 76937; 80048; 80053; 80061; 80202; 81003; 82607; 82728; 82746; 82962; 83036; 83540; 83550; 83735; 84100; 84145; 84443; 85025; 85651; 86141; 87077; 87186; 93923; 93970; 93971; 99285; C1725; J0696; J1200; J1815; J2270; J2405; J2543; J3370; J3490; J7060; U0003-CS

== ENCOUNTER 2020-04-25 20:16 | Inpatient (IN) | payer MEDICAID ==
[~2020-04-25] VITALS: Ht 170.2 cm; Wt 54.4 kg
[2020-04-25] MEDS ORDERED: MORPHINE SULFATE 4 MG/ML CPJ (NOT FOR IM USE) IV STA (22:05)
[2020-04-25] MEDS ORDERED: ONDANSETRON HCL 4MG/2ML INJ IV STA (22:05)
[2020-04-25] MEDS ORDERED: SODIUM CHLORIDE 0.9% 1,000 ML IV ONE (22:15)
[2020-04-25 23:30] LABS: BASOPHILS % 2.4 % (0.0-2.0); EOSINOPHILS % 12.6 % (0.0-5.0); HEMATOCRIT. 31.4 % (42.0-52.0); HEMOGLOBIN. 10.2 g/dL (14.0-18.0); LYMPHOCYTES % 14.6 % (20.0-50.0); MEAN CORPUSCULAR HEMOGLOBIN 30.5 pg (28.0-32.0); MEAN CORPUSCULAR VOLUME 93.5 fL (80.0-94.0); MEAN PLATELET VOLUME 7.7 fl (7.4-10.4); MONOCYTES % 8.4 % (2.0-8.0); PLATELET 88 x1000/uL (130-400); RED BLOOD CELL COUNT 3.36 mill/uL (4.7-6.1); RED CELL DISTRIBUTION WIDTH 20.4 % (11.6-14.6)
[2020-04-25 23:31] LABS: CHLORIDE 106 mEq/L (98-107)
[2020-04-26 05:45] VITALS: BP 139/63
[2020-04-26] MEDS: MORPHINE SULFATE 2 MG/ML CPJ (NOT FOR IM USE) IV PRN ×2 (06:17→13:27)
[2020-04-26 08:00] VITALS: BP 106/61
[2020-04-26] MEDS ORDERED: ACETAMINOPHEN 325MG TABLET PO PRN (09:30)
[2020-04-26] MEDS ORDERED: IPRATROPIUM/ALBUTEROL 0.5-3(2.5)MG/3ML NEB HHN PRN (09:30)
[2020-04-26] MEDS ORDERED: ONDANSETRON HCL 4MG/2ML INJ IV PRN (09:30)
[2020-04-26] MEDS ORDERED: DIPHENHYDRAMINE 50MG/ML VIAL IV PRN (09:30)
[2020-04-26] MEDS ORDERED: CLONIDINE 0.1MG TABLET PO PRN (09:30)
[2020-04-26] MEDS ORDERED: DEXTROSE 50% WATER 50ML SYRINGE IV PRN (11:30)
[2020-04-26 12:00] VITALS: BP 128/81
[2020-04-26] MEDS: BLOOD SUGAR DIAGNOSTIC STRIP TEST SCH ×3 (12:10→21:00)
[2020-04-26] MEDS: INSULIN LISPRO 100 UNITS/ML SUBCUT SCH ×3 (12:40→21:00)
[2020-04-26 15:55] LABS: INR 1.1
[2020-04-26 16:00] VITALS: BP 118/68
[2020-04-26] MEDS: PANTOPRAZOLE SODIUM 40 MG/VIAL IV SCH (18:27)
[2020-04-26 20:00] VITALS: BP 132/102
[2020-04-27] VITALS (15 sets, daily range): BP systolic 109–151; BP diastolic 24–80
[2020-04-27] MEDS: MORPHINE SULFATE 2 MG/ML CPJ (NOT FOR IM USE) IV PRN (00:46)
[2020-04-27] MEDS: BLOOD SUGAR DIAGNOSTIC STRIP TEST SCH ×3 (05:19→17:10)
[2020-04-27] MEDS: INSULIN LISPRO 100 UNITS/ML SUBCUT SCH ×3 (05:23→17:40)
[2020-04-27 07:16] LABS: EOSINOPHILS % 13.6 % (0.0-5.0); HEMATOCRIT. 28.5 % (42.0-52.0); HEMOGLOBIN. 9.3 g/dL (14.0-18.0); LYMPHOCYTES % 15.3 % (20.0-50.0); MEAN CORPUSCULAR HEMOGLOBIN 30.2 pg (28.0-32.0); MEAN CORPUSCULAR VOLUME 92.3 fL (80.0-94.0); MEAN PLATELET VOLUME 7.7 fl (7.4-10.4); MONOCYTES % 7.7 % (2.0-8.0); NEUTROPHILS % 61.4 % (40.0-76.0); PLATELET 81 x1000/uL (130-400); RED BLOOD CELL COUNT 3.09 mill/uL (4.7-6.1); RED CELL DISTRIBUTION WIDTH 20.2 % (11.6-14.6)
[2020-04-27 07:33] LABS: CHLORIDE 107 mEq/L (98-107)
[2020-04-27 07:36] LABS: HDL CHOLESTEROL 36 mg/dL (40-59); LDL CHOLESTEROL 45 mg/dL (5-100)
[2020-04-27] MEDS ORDERED: SODIUM BICARBONATE 4% (2.4MEQ) 5ML VIAL IV ONE (08:32)
[2020-04-27] MEDS ORDERED: IOHEXOL-300 100 ML BOTTLE ONE (08:32)
[2020-04-27] MEDS ORDERED: LIDOCAINE HCL 1% 20ML VIAL (Pyxis) INJ ONE (08:32)
[2020-04-27] MEDS ORDERED: FOLIC ACID/VITAMIN B COMP W-C TABLET PO SCH (09:00)
[2020-04-27] MEDS ORDERED: FENTANYL CITRATE/PF 50MCG/ML 2ML VIAL ONE (09:10)
[2020-04-27] MEDS ORDERED: FENTANYL CITRATE/PF 50MCG/ML 2ML VIAL IV ONE (09:30)
[2020-04-27] MEDS: PANTOPRAZOLE SODIUM 40 MG/VIAL IV SCH (10:06)
[2020-04-27] MEDS ORDERED: PANT40TA4 MT (16:23)
[2020-04-27] MEDS ORDERED: EPOETIN ALFA-EPBX 4,000 UNIT/ML VIAL SUBCUT SCH (21:00)
[2020-05-01] MEDS ORDERED: EPOETIN ALFA-EPBX 4,000 UNIT/ML VIAL SUBCUT SCH (21:00)
== END 2020-04-27 20:30 | disposition home or self-care (01) | DRG 951 ==
LOC: ER 20:16 → 8WST 04-26 01:22 → EDBEDREQDT 04-26 01:25 → EDBEDREQ 04-26 01:25 → EDBEDREQTM 04-26 01:25 → ENRESERV 04-26 02:11
PROVIDERS: ADMIT Internal Medicine; ATTEND Internal Medicine
PROC: 5A1D70Z Performance of Urinary Filtration, Intermittent, Less than 6 Hours Per Day (ICD-10-PCS; 2020-04-26)
PROC: 03723ZZ Dilation of Innominate Artery, Percutaneous Approach (ICD-10-PCS; principal; 2020-04-27)
PROC: B51W1ZZ Fluoroscopy of Dialysis Shunt/Fistula using Low Osmolar Contrast (ICD-10-PCS; 2020-04-27)
PROC: 02HV33Z Insertion of Infusion Device into Superior Vena Cava, Percutaneous Approach (ICD-10-PCS; 2020-04-27)
PROC: B548ZZA Ultrasonography of Superior Vena Cava, Guidance (ICD-10-PCS; 2020-04-27)
DX: K52.9 Noninfective gastroenteritis and colitis, unspecified (principal); D63.1 Anemia in chronic kidney disease; R74.8 Abnormal levels of other serum enzymes; D69.6 Thrombocytopenia, unspecified; I12.0 Hypertensive chronic kidney disease with stage 5 chronic kidney disease or end stage renal disease; E11.22 Type 2 diabetes mellitus with diabetic chronic kidney disease; N18.6 End stage renal disease; Z20.828 Contact with and (suspected) exposure to other viral communicable diseases; Z79.4 Long term (current) use of insulin; Z79.82 Long term (current) use of aspirin; Z79.1 Long term (current) use of non-steroidal anti-inflammatories (NSAID); Z79.899 Other long term (current) drug therapy; Z93.3 Colostomy status; Z90.49 Acquired absence of other specified parts of digestive tract; Z89.512 Acquired absence of left leg below knee; Z95.810 Presence of automatic (implantable) cardiac defibrillator; Z99.2 Dependence on renal dialysis
CPT/HCPCS: 36415; 36901; 36907; 71045; 74176; 76937; 80053; 80061; 82962; 83605; 84443; 85025; 87426; 93005; 93922; 93970; 93971; 96374; 99152; 99153; 99291; C1725; C1766; C1769; C1887; C9113; J0885; J1200; J1644; J2270; J2405; J3010; J3490; J7030; Q9967; G0500

== ENCOUNTER 2020-05-02 15:58 | Inpatient (IN) | payer MEDICAID ==
[~2020-05-02] VITALS: Ht 167.6 cm; Wt 56.7 kg
[~2020-05-02 15:58] MED LIST changes: -IBUP-2741 PO; +PANT40TA4 MT
[2020-05-02] MEDS ORDERED: MORPHINE SULFATE 4 MG/ML CPJ (NOT FOR IM USE) IV ONE (16:30)
[2020-05-02 18:18] LABS: HEMOGLOBIN. 10.7 g/dL (14.0-18.0); MEAN CORPUSCULAR VOLUME 92.4 fL (80.0-94.0); MEAN PLATELET VOLUME 7.9 fl (7.4-10.4); PLATELET 186 x1000/uL (130-400); RED BLOOD CELL COUNT 3.57 mill/uL (4.7-6.1); RED CELL DISTRIBUTION WIDTH 19.7 % (11.6-14.6)
[2020-05-02 18:26] LABS: INR 1.1; PROTHROMBIN TIME 11.6 sec (9.6-11.0)
[2020-05-02 18:28] LABS: CHLORIDE 103 mEq/L (98-107)
[2020-05-02] MEDS ORDERED: FUROSEMIDE 100MG/10ML VIAL IV STA (19:11)
[2020-05-02] MEDS ORDERED: DEXTROSE 50% WATER 50ML SYRINGE IV ONE (19:15)
[2020-05-02] MEDS ORDERED: INSULIN REGULAR (HUMULIN R) 300UNITS/3ML IV ONE (19:15)
[2020-05-02] MEDS ORDERED: CALCIUM CHLORIDE 1GM/10ML SYR IV ONE (19:15)
[2020-05-02 19:30] LABS: PLATELET ESTIMATE NORMAL
[2020-05-02] MEDS ORDERED: ACETAMINOPHEN 325MG TABLET PO PRN (23:45)
[2020-05-03 00:30] VITALS: BP 145/87
[2020-05-03] MEDS ORDERED: ONDANSETRON HCL 4MG/2ML INJ IV PRN (00:30)
[2020-05-03] MEDS ORDERED: ACETAMINOPHEN 325MG TABLET PO PRN (00:30)
[2020-05-03] MEDS ORDERED: CLONIDINE 0.1MG TABLET PO PRN (00:30)
[2020-05-03] MEDS ORDERED: MAGNESIUM/ALUMINUM HYDROXIDE/SIMETHICONE 30ML UDC PO PRN (00:30)
[2020-05-03] MEDS ORDERED: IPRATROPIUM/ALBUTEROL 0.5-3(2.5)MG/3ML NEB NEB PRN (00:30)
[2020-05-03] MEDS ORDERED: SODIUM POLYSTYRENE SULFONATE 15 G/60 ML BOT PO NR (01:30)
[2020-05-03] MEDS: HYDROCODONE/ACETAMINOPHEN 5/325MG TABLET PO PRN (02:51)
[2020-05-03 04:00] VITALS: BP 138/85
[2020-05-03] MEDS ORDERED: INFLUENZA VACCINE 05/PF 0.5 ML VIAL IM ONE (06:15)
[2020-05-03 08:00] VITALS: BP 114/69
[2020-05-03] MEDS: MORPHINE SULFATE 2 MG/ML CPJ (NOT FOR IM USE) IV PRN ×2 (11:46→23:56)
[2020-05-03 12:00] VITALS: BP 124/70
[2020-05-03] MEDS: CARVEDILOL 3.125 MG TABLET PO SCH ×3 (13:00→21:04)
[2020-05-03] MEDS: SEVELAMER CARBONATE 800 MG TABLET PO SCH ×2 (13:11→16:47)
[2020-05-03] MEDS: PANTOPRAZOLE 40MG DR TABLET PO SCH (13:11)
[2020-05-03] MEDS: DIPHENHYDRAMINE 50MG/ML VIAL IV PRN (15:31)
[2020-05-03 16:00] VITALS: BP 131/77
[2020-05-03 16:02] LABS: *AMPHETAMINES SCREEN URINE NEGATIVE (NEGATIVE); *BARBITURATES SCREEN URINE NEGATIVE (NEGATIVE); *BENZODIAZEPINES SCREEN URINE NEGATIVE (NEGATIVE); *COCAINE SCREEN URINE NEGATIVE (NEGATIVE); METHADONE URINE SCREEN NEGATIVE (NEGATIVE); OPIATES URINE SCREEN NEGATIVE (NEGATIVE); PHENCYCLIDINE URINE SCREEN NEGATIVE (NEGATIVE)
[2020-05-03 16:08] LABS: CANNABINOID URINE SCREEN NEGATIVE (NEGATIVE)
[2020-05-03 20:31] VITALS: BP 117/65
[2020-05-03] MEDS: INSULIN GLARGINE UD 100 UNITS/ML SYR SUBCUT SCH (21:12)
[2020-05-04] VITALS (13 sets, daily range): BP systolic 85–131; BP diastolic 45–75
[2020-05-04] MEDS: MORPHINE SULFATE 2 MG/ML CPJ (NOT FOR IM USE) IV PRN ×3 (04:34→17:41)
[2020-05-04 06:46] LABS: HEMATOCRIT. 23.1 % (42.0-52.0); HEMOGLOBIN. 7.5 g/dL (14.0-18.0); MEAN CORPUSCULAR HEMOGLOBIN 29.9 pg (28.0-32.0); MEAN CORPUSCULAR VOLUME 92.2 fL (80.0-94.0); MEAN PLATELET VOLUME 7.5 fl (7.4-10.4); PLATELET 167 x1000/uL (130-400); RED BLOOD CELL COUNT 2.51 mill/uL (4.7-6.1); RED CELL DISTRIBUTION WIDTH 19.2 % (11.6-14.6)
[2020-05-04] MEDS ORDERED: LIDOCAINE HCL 1% 20ML VIAL (Pyxis) INJ ONE (08:24)
[2020-05-04] MEDS ORDERED: SODIUM BICARBONATE 4% (2.4MEQ) 5ML VIAL IV ONE (08:24)
[2020-05-04] MEDS ORDERED: IOHEXOL-300 100 ML BOTTLE ONE (08:26)
[2020-05-04] MEDS: PANTOPRAZOLE 40MG DR TABLET PO SCH (08:30)
[2020-05-04] MEDS: CARVEDILOL 3.125 MG TABLET PO SCH ×2 (08:31→21:00)
[2020-05-04] MEDS: SEVELAMER CARBONATE 800 MG TABLET PO SCH ×3 (08:32→17:40)
[2020-05-04 12:10] LABS: PLATELET ESTIMATE NORMAL
[2020-05-04] MEDS: HYDROCODONE/ACETAMINOPHEN 5/325MG TABLET PO PRN ×2 (15:30→19:57)
[2020-05-04] MEDS ORDERED: SODIUM CHLORIDE 0.45% 1,000 ML IV ONE (21:00)
[2020-05-04] MEDS ORDERED: EPOETIN ALFA-EPBX 10,000 UNIT/ML VIAL SUBCUT SCH (21:00)
[2020-05-04] MEDS ORDERED: EPOETIN ALFA 4000UNITS/ML VIAL SUBCUT SCH (21:00)
[2020-05-04] MEDS: DOCUSATE SODIUM 100MG CAPSULE PO PRN (21:54)
[2020-05-04] MEDS: INSULIN GLARGINE UD 100 UNITS/ML SYR SUBCUT SCH (21:55)
[2020-05-05] VITALS (14 sets, daily range): BP systolic 82–132; BP diastolic 40–63
[2020-05-05] MEDS: SEVELAMER CARBONATE 800 MG TABLET PO SCH ×3 (07:50→17:34)
[2020-05-05] MEDS: FAMOTIDINE 20MG TABLET PO SCH (09:00)
[2020-05-05] MEDS: CARVEDILOL 3.125 MG TABLET PO SCH ×2 (09:00→22:03)
[2020-05-05] MEDS: MORPHINE SULFATE 2 MG/ML CPJ (NOT FOR IM USE) IV PRN (09:10)
[2020-05-05 10:20] LABS: HEMATOCRIT 30.9 % (42.0-52.0); HEMOGLOBIN 10.4 g/dL (14.0-18.0)
[2020-05-05 10:30] LABS: INR 1.2; PROTHROMBIN TIME 12.4 sec (9.6-11.0)
[2020-05-05] MEDS ORDERED: PAPAVERINE HCL 30 MG/ML 2ML IV ONE (11:09)
[2020-05-05] MEDS ORDERED: BACITRACIN 15GM TUBE TOP ONE (11:09)
[2020-05-05] MEDS ORDERED: SODIUM CHLORIDE 0.9% INJ 10ML FLUSH IVF ONE (11:10)
[2020-05-05] MEDS ORDERED: BACITRACIN 50,000 UNITS/VIAL ONE (11:10)
[2020-05-05] MEDS ORDERED: BUPIVACAINE HCL/PF 0.5% (5MG/ML) 10ML ONE (11:10)
[2020-05-05] MEDS ORDERED: LIDOCAINE HCL 1% 20ML VIAL (Pyxis) INJ ONE (11:10)
[2020-05-05] MEDS ORDERED: THROMBIN (BOVINE) 5000 UNITS/VIAL TOP ONE (11:10)
[2020-05-05] MEDS ORDERED: HEPARIN 5000 UNITS/ML VIAL ONE (11:11)
[2020-05-05] MEDS ORDERED: FENTANYL CITRATE/PF 50MCG/ML 2ML VIAL ONE (11:41)
[2020-05-05] MEDS ORDERED: MIDAZOLAM HCL 2 MG/2 ML VIAL ONE (11:41)
[2020-05-05] MEDS ORDERED: ROCURONIUM BROMIDE 10MG/ML VIAL 5ML IV ONE (11:42)
[2020-05-05] MEDS ORDERED: MORPHINE SULFATE 4 MG/ML CPJ (NOT FOR IM USE) IV PRN (11:45)
[2020-05-05] MEDS ORDERED: PHENYLEPHRINE HCL 10 MG/ML 1ML (IV VIAL) IV ONE (11:49)
[2020-05-05] MEDS ORDERED: PROPOFOL 200MG/20ML VIAL IV ONE (11:50)
[2020-05-05] MEDS ORDERED: ATROPINE SULFATE 1MG/10ML SYR ONE (13:00)
[2020-05-05] MEDS ORDERED: HEPARIN SODIUM 1,000 UNIT/1ML VIAL IV SCH (15:00)
[2020-05-05] MEDS: INSULIN GLARGINE UD 100 UNITS/ML SYR SUBCUT SCH (21:56)
[2020-05-05] MEDS: DOCUSATE SODIUM 100MG CAPSULE PO PRN (22:02)
[2020-05-05] MEDS: HYDROCODONE/ACETAMINOPHEN 5/325MG TABLET PO PRN (22:03)
[2020-05-06] VITALS: BP 134/77
[2020-05-06] MEDS: HYDROCODONE/ACETAMINOPHEN 5/325MG TABLET PO PRN (02:27)
[2020-05-06 04:00] VITALS: BP 104/43
[2020-05-06 07:29] LABS: BASOPHILS % 1.3 % (0.0-2.0); EOSINOPHILS % 12.6 % (0.0-5.0); HEMATOCRIT. 30.3 % (42.0-52.0); HEMOGLOBIN. 10.2 g/dL (14.0-18.0); LYMPHOCYTES % 16.8 % (20.0-50.0); MEAN CORPUSCULAR HEMOGLOBIN 30.1 pg (28.0-32.0); MEAN CORPUSCULAR VOLUME 89.5 fL (80.0-94.0); MEAN PLATELET VOLUME 7.9 fl (7.4-10.4); MONOCYTES % 6.6 % (2.0-8.0); NEUTROPHILS % 62.7 % (40.0-76.0); PLATELET 120 x1000/uL (130-400); RED BLOOD CELL COUNT 3.39 mill/uL (4.7-6.1); RED CELL DISTRIBUTION WIDTH 18.6 % (11.6-14.6)
[2020-05-06 08:00] VITALS: BP 106/40
[2020-05-06] MEDS: SEVELAMER CARBONATE 800 MG TABLET PO SCH ×3 (08:37→17:35)
[2020-05-06] MEDS: FAMOTIDINE 20MG TABLET PO SCH (08:37)
[2020-05-06] MEDS: CARVEDILOL 3.125 MG TABLET PO SCH ×2 (08:38→21:44)
[2020-05-06] MEDS: MORPHINE SULFATE 2 MG/ML CPJ (NOT FOR IM USE) IV PRN ×2 (08:38→17:58)
[2020-05-06] MEDS: DIPHENHYDRAMINE 50MG/ML VIAL IV PRN (11:07)
[2020-05-06 12:00] VITALS: BP 132/42
[2020-05-06] MEDS: ASPIRIN 81MG TABLET PO SCH (13:11)
[2020-05-06 16:00] VITALS: BP 107/57
[2020-05-06 20:00] VITALS: BP 159/63
[2020-05-06] MEDS: INSULIN GLARGINE UD 100 UNITS/ML SYR SUBCUT SCH (21:44)
[2020-05-07] VITALS: BP 144/72
[2020-05-07] MEDS: MORPHINE SULFATE 2 MG/ML CPJ (NOT FOR IM USE) IV PRN ×3 (00:30→22:20)
[2020-05-07 04:00] VITALS: BP 145/61
[2020-05-07 06:46] LABS: BASOPHILS % 1.3 % (0.0-2.0); HEMATOCRIT. 34.1 % (42.0-52.0); HEMOGLOBIN. 11.3 g/dL (14.0-18.0); LYMPHOCYTES % 19.9 % (20.0-50.0); MEAN CORPUSCULAR HEMOGLOBIN 30.3 pg (28.0-32.0); MEAN CORPUSCULAR VOLUME 91.5 fL (80.0-94.0); MEAN PLATELET VOLUME 8.1 fl (7.4-10.4); MONOCYTES % 6.8 % (2.0-8.0); PLATELET 116 x1000/uL (130-400); RED BLOOD CELL COUNT 3.73 mill/uL (4.7-6.1); RED CELL DISTRIBUTION WIDTH 18.3 % (11.6-14.6)
[2020-05-07 08:00] VITALS: BP 112/94
[2020-05-07] MEDS: SEVELAMER CARBONATE 800 MG TABLET PO SCH ×3 (08:13→17:21)
[2020-05-07] MEDS: FAMOTIDINE 20MG TABLET PO SCH (08:13)
[2020-05-07] MEDS: ASPIRIN 81MG TABLET PO SCH (08:16)
[2020-05-07] MEDS: CARVEDILOL 3.125 MG TABLET PO SCH ×2 (08:16→21:12)
[2020-05-07 12:00] VITALS: BP 130/95
[2020-05-07] MEDS: DIPHENHYDRAMINE 50MG/ML VIAL IV PRN (12:37)
[2020-05-07 16:00] VITALS: BP 112/71
[2020-05-07 20:00] VITALS: BP 141/62
[2020-05-07] MEDS: INSULIN GLARGINE UD 100 UNITS/ML SYR SUBCUT SCH (22:00)
[2020-05-08] VITALS: BP 103/73
[2020-05-08 04:00] VITALS: BP 119/59
[2020-05-08] MEDS: MORPHINE SULFATE 2 MG/ML CPJ (NOT FOR IM USE) IV PRN ×2 (04:06→09:26)
[2020-05-08] MEDS: FAMOTIDINE 20MG TABLET PO SCH (09:20)
[2020-05-08] MEDS: CARVEDILOL 3.125 MG TABLET PO SCH (09:20)
[2020-05-08] MEDS: ASPIRIN 81MG TABLET PO SCH (09:20)
[2020-05-08] MEDS: SEVELAMER CARBONATE 800 MG TABLET PO SCH (09:22)
[2020-05-08 10:30] VITALS: BP 123/66
[2020-05-08] MEDS: DOCUSATE SODIUM 100MG CAPSULE PO PRN (10:55)
== END 2020-05-08 13:26 | disposition home or self-care (01) | DRG 206 ==
LOC: ER 15:58 → MICUSO 19:47 → EDBEDREQ 19:51 → 6WST 23:47
PROVIDERS: ADMIT Internal Medicine; ATTEND Internal Medicine
PROC: 5A1D70Z Performance of Urinary Filtration, Intermittent, Less than 6 Hours Per Day (ICD-10-PCS; 2020-05-03)
PROC: B51W1ZZ Fluoroscopy of Dialysis Shunt/Fistula using Low Osmolar Contrast (ICD-10-PCS; principal; 2020-05-04)
PROC: B5181ZZ Fluoroscopy of Superior Vena Cava using Low Osmolar Contrast (ICD-10-PCS; 2020-05-04)
PROC: 30233N1 Transfusion of Nonautologous Red Blood Cells into Peripheral Vein, Percutaneous Approach (ICD-10-PCS; 2020-05-05)
PROC: 5A1D70Z Performance of Urinary Filtration, Intermittent, Less than 6 Hours Per Day (ICD-10-PCS; 2020-05-05)
PROC: 5A1D70Z Performance of Urinary Filtration, Intermittent, Less than 6 Hours Per Day (ICD-10-PCS; 2020-05-07)
DX: T82.838A Hemorrhage due to vascular prosthetic devices, implants and grafts, initial encounter (principal); D62 Acute posthemorrhagic anemia; N18.6 End stage renal disease; D63.1 Anemia in chronic kidney disease; E11.22 Type 2 diabetes mellitus with diabetic chronic kidney disease; E87.5 Hyperkalemia; Y84.1 Kidney dialysis as the cause of abnormal reaction of the patient, or of later complication, without mention of misadventure at the time of the procedure; I13.2 Hypertensive heart and chronic kidney disease with heart failure and with stage 5 chronic kidney disease, or end stage renal disease; I25.10 Atherosclerotic heart disease of native coronary artery without angina pectoris; E78.5 Hyperlipidemia, unspecified; Y82.8 Other medical devices associated with adverse incidents; I50.9 Heart failure, unspecified; Z20.828 Contact with and (suspected) exposure to other viral communicable diseases; Z99.2 Dependence on renal dialysis; Z93.3 Colostomy status; Z79.4 Long term (current) use of insulin; Z79.899 Other long term (current) drug therapy; Z79.1 Long term (current) use of non-steroidal anti-inflammatories (NSAID); Z89.511 Acquired absence of right leg below knee; Z90.49 Acquired absence of other specified parts of digestive tract; Z95.5 Presence of coronary angioplasty implant and graft; Y92.89 Other specified places as the place of occurrence of the external cause; E03.9 Hypothyroidism, unspecified
CPT/HCPCS: 36415; 36901; 71045; 76937; 80048; 80053; 80061; 80305; 82040; 82962; 83036; 83605; 83735; 83880; 84134; 84443; 84484; 85014; 85018; 85025; 85049; 85384; 86850; 86870; 86900; 86920; 87426; 90686; 93005; 93306; 93922; 96374; 99285; C1887; J0461; J0885; J1200; J1644; J1815; J1940; J2250; J2270; J2370; J2440; J2704; J3010; J3490; P9016; Q9967